=== PATIENT | female | born 1955 | race Two or more races ===

== ENCOUNTER 2024-06-11 15:52 | Inpatient (IN) | payer MEDICARE, MEDICAID ==
[~2024-06-11] VITALS: Ht 170.2 cm; Wt 74.0 kg
[~2024-06-11 15:52] MED LIST: ALEN70TA74 PO; ATEN25TA PO; CELE1CAP27 PO; FLUT1AER17 PO; GABA-1251 PO; HYDR-4072 PO; LIDO1PAD55 TOP; LOSA-534 PO; PANT40T PO
[2024-06-11 17:15] LABS: Hematocrit 44.3 % (36.0-46.0); Hemoglobin 14.4 g/dL (12.2-16.2); Mean Corpuscular Hemoglobin 29.3 pg (28.0-32.0); Mean Corpuscular Hgb Conc. 32.5 g/dL (32.0-36.0); Mean Corpuscular Volume 90.4 fL (80.0-100.0); Platelet Count (auto) 265 10^3/uL (140-450); Red Cell Distribution Width 15.1 % (11.8-14.3)
[2024-06-11 17:23] LABS: White Blood Cell 37.4 10^3/uL (4.4-10.8)
[2024-06-11 17:24] LABS: Band Neutrophils % (manual) 0; Basophils % (manual) 0 (0.0-2.0); Blast Cells 0; Metamyelocytes % 0; Myelocytes % 0; Promyelocytes % 0; Reactive Lymphocytes 0
[2024-06-11 17:28] LABS: Alanine Aminotransferase 13 U/L (7-40); Alkaline Phosphatase 112 U/L (46-116); Anion Gap 10 (5-15); Aspartate Aminotransferase 19 U/L (13-40); BUN/Creatinine Ratio 19.5 (10.0-20.0); Calcium 9.9 mg/dL (8.7-10.4); Carbon Dioxide 23 mmol/L (20-31); Chloride 103 mmol/L (98-107); Lipase 25 U/L (12-53); Potassium 4.6 mmol/L (3.5-5.1); Sodium 136 mmol/L (136-145)
[2024-06-11 17:29] LABS: Albumin 4.3 g/dL (3.2-4.8); Bilirubin, Total 0.7 mg/dL (0.2-1.0); Creatine Kinase IFCC 50 U/L (34-145); Total Protein 6.6 g/dL (5.7-8.2)
[2024-06-11 17:31] LABS: Lactic Acid w/Reflex 2.9 mmol/L (0.4-2.0)
[2024-06-11 17:38] LABS: Blood Urea Nitrogen 24 mg/dL (9-23); Glucose 106 mg/dL (74-106)
[2024-06-11] MEDS: AZITHROMYCIN 500MG/ 250ML 250 ML IV ONE (17:41)
[2024-06-11 17:50] LABS: Eosinophils % (manual) 1 (0-7); Lymphocytes % (manual) 7 (10.0-50.0); Monocytes % (manual) 7 (0-12)
[2024-06-11 17:52] LABS: Platelet Estimate Adequate
--- NOTE | 2024-06-11 19:20 | ED.PDOC ---
History of Present Illness HPI Comments 69y F who presents to the ED for chief complaint of ALOC. Per EMS, pt family found pt on the floor in restroom for unknown time and called EMS. EMS arrived on scene and pt was alert and oriented x 2 but slow slow to answering questions and able to follow simple commands. EMS states pt was tachy in the 130's and started IV fluids and pt also had 02 sat of 92% on room air and pt was placed on 2 L via nc and pt is now 96% on ED arrival. Chief Complaint: ALOC Time Seen by MD: 16:05 Primary Care Provider: UNKNOWN Reviewed Notes: [employer] Notes Allergies: Coded Allergies: NO KNOWN ALLERGIES (Unverified , 06/11/24) Mode of Arrival: EMS Constitutional: reports: malaise, weakness EENTM: denies: blurred vision, double vision, ear bleeding, ear discharge, ear drainage, ear pain, ear ringing, eye pain, eye redness, hearing loss, mouth pain, mouth swelling, nasal discharge, nose bleeding, nose congestion, nose pain, photophobia, tearing, throat pain, throat swelling, voice changes, others Respiratory: denies: cough, hemoptysis, orthopnea, SOB at rest, shortness of breath, SOB with excertion, stridor, wheezing, others Cardiovascular: denies: chest pain, dizzy spells, diaphoresis, Dyspnea on exertion, edema, irregular heart beat, left arm pain, lightheadedness, palpitations, PND, syncope, others Gastrointestinal: denies: abdomen distended, abdominal pain, blood streaked bowels, constipated, diarrhea, dysphagia, difficulty swallowing, hematemesis, melena, nausea, poor appetite, poor fluid intake, rectal bleeding, rectal pain, vomiting, others Genitourinary: denies: abnormal vagina bleeding, burning, dyspareunia, dysuria, flank pain, frequency, hematuria, incontinence, pain, , vagina discharge, urgency, others Neurological: reports: weakness; denies: dizziness, fainting, headache, left sided numbness, left sided weakness, numbness, paresthesia, pre-existing deficit, right sided numbness, right sided weakness, seizure, speech problems, tingling, tremors, others Musculoskeletal: denies: back pain, gout, joint pain, joint swelling, muscle pain, muscle stiffness, neck pain, others Integumetry: denies: bruises, change in color, change in hair/nails, dryness, laceration, lesions, lumps, rash, wounds, others Allergic/Immunocompromised: denies: Difficulty Healing, Frequent Infections, Hives, Itching, others Hematologic/Lymphatic: denies: anemia, blood clots, easy bleeding, easy bruising, swollen glands, others Endocrine: denies: excessive hunger, excessive sweating, excessive thirst, excessive urination, flushing, intolerance to cold, intolerance to heat, unexplained weight gain, unexplained weight loss, others Psychiatric: denies: anxiety, bipolar disorder, depression, hopeless, panic disorder, schizophrenia, sleepless, suicidal, others All Other Systems: Reviewed and Negative Physical Exam General Appearance: Moderate Distress HEENT: PERRL/EOMI Neck: Non-Tender Respiratory: Crackles, Respiratory Distress, Wheezing Cardiovascular: Tachycardia Breast Exam: Normal Gastrointestinal: Tenderness Genitalia: Deferred Pelvic: Deferred Rectal: Deferred Extremities: No calf tenderness, Normal capillary refill, Normal inspection, Normal range of motion, Non-tender, No pedal edema Neurologic: Disoriented Cerebellar Function: NOT DONE Reflexes: NOT DONE Skin: Diaphoresis Lymphatic: No Adenopathy Was a procedure done? Was a procedure done?: No Differential Dx Considerations may include: sepsis, TIA, CVA, alerted mental status, metabolic encephalopathy, CHF, X-Ray, Labs, Meds, VS Vital Signs Date Time Temp Pulse Resp B/P (MAP) Pulse Ox O2 Delivery O2 Flow Rate FiO2 06/11/24 21:40 129/61 06/11/24 21:38 149 16 151/62 (91) 100 75 06/11/24 21:34 129/61 06/11/24 20:00 110 06/11/24 19:55 97.7 110 30 135/92 (106) 96 97.7 06/11/24 19:50 110 30 96 Simple Mask* 6 50 06/11/24 19:32 24 94 Nasal Cannula* 2 28 06/11/24 16:00 99.6 134 28 133/54 (80) 96 Lab Test 06/11/24 22:36 06/11/24 20:30 06/11/24 19:11 06/11/24 17:23 Range/Units Ammonia Pending Urine Color Light-yellow Yellow Urine Clarity Turbid H Clear Urine pH 6.5 5.0-9.0 Urine Specific [place] 1.025 1.001-1.035 Urine Protein Trace H Negative Urine Ketones Negative Negative Urine Blood 1+ H Negative /uL Urine Nitrite Negative Negative Urine Bilirubin Negative Negative Urine Urobilinogen Normal Negative mg/dL Urine Leukocyte Esterase 2+ Negative /uL Urine RBC 7 0 - 4 /hpf Urine WBC 11 0 - 5 /hpf Urine Squamous Epithelial Cells Few <5 /hpf Urine Bacteria Many H None Seen /hpf Urine Glucose Normal Normal mg/dL Urine Opiates Screen Pos NEGATIVE Urine Fentanyl Screen Neg NEGATIVE Urine Barbiturates Screen Neg NEGATIVE Urine Phencyclidine Screen Neg NEGATIVE Urine Amphetamines Screen Neg NEGATIVE Urine Benzodiazepines Screen Neg NEGATIVE Urine Cocaine Screen Neg NEGATIVE Urine Cannabinoids Screen Neg NEGATIVE Lactic Acid Level 2.3 *H 0.4-2.0 mmol/L Troponin I High Sensitivity 42 *H 25 </=34 ng/L Plasma/Serum Blood Alcohol Pending B-Type Natriuretic Peptide 75.18 0-100 pg/mL Test 06/11/24 16:56 06/11/24 16:37 Range/Units Lactic Acid Level 2.9 *H 0.4-2.0 mmol/L White Blood Count 37.4 *H 4.4-10.8 10^3/uL Red Blood Count 4.90 4.0-5.20 10^6/uL Hemoglobin 14.4 12.2-16.2 g/dL Hematocrit 44.3 36.0-46.0 % Mean Corpuscular Volume 90.4 80.0-100.0 fL Mean Corpuscular Hemoglobin 29.3 28.0-32.0 pg Mean Corpuscular Hemoglobin Concent 32.5 32.0-36.0 g/dL Red Cell Distribution Width 15.1 H 11.8-14.3 % Platelet Count 265 140-450 10^3/uL Mean Platelet Volume 8.8 6.9-10.8 fL Neutrophils (%) (Auto) 37.0-80.0 % Lymphocytes (%) (Auto) 10.0-50.0 % Monocytes (%) (Auto) 0.0-12.0 % Basophils (%) (Auto) 0.0-2.0 % Neutrophils # (Auto) 1.6-8.6 10 ^3/uL Lymphocytes # (Auto) 0.4-5.4 10 ^3/uL Monocytes # (Auto) 0-1.3 10 ^3/uL Differential Total Cells Counted 100.0 100 Neutrophils % (Manual) 85 H 37.0-80.0 Band Neutrophils % (Manual) 0 Lymphocytes % (Manual) 7 L 10.0-50.0 Monocytes % (Manual) 7 0-12 Eosinophils % (Manual) 1 0-7 Basophils % (Manual) 0 0.0-2.0 Metamyelocytes % (manual) 0 Myelocytes % (Manual) 0 Promyelocytes % (Manual) 0 Blast Cells % (Manual) 0 Reactive Lymphocytes 0 Platelet Estimate Adequate Sodium Level 136 136-145 mmol/L Potassium Level 4.6 3.5-5.1 mmol/L Chloride Level 103 98-107 mmol/L Carbon Dioxide Level 23 20-31 mmol/L Anion Gap 10 5-15 Blood Urea Nitrogen 24 H 9-23 mg/dL Creatinine 1.23 H 0.550-1.02 mg/dL Glomerular Filtration Rate Calc 48 >90 mL/min BUN/Creatinine Ratio 19.5 10.0-20.0 Serum Glucose 106 74-106 mg/dL Hemoglobin A1c 5.4 <5.7 % A1C Calcium Level 9.9 8.7-10.4 mg/dL Total Bilirubin 0.7 0.2-1.0 mg/dL Aspartate Amino Transferase (AST) 19 13-40 U/L Alanine Aminotransferase (ALT) 13 7-40 U/L Alkaline Phosphatase 112 46-116 U/L Creatine Kinase 50 34-145 U/L Troponin I High Sensitivity 20 </=34 ng/L Total Protein 6.6 5.7-8.2 g/dL Albumin 4.3 3.2-4.8 g/dL Lipase 25 12-53 U/L Current Medications Medications (Trade) Dose Ordered Sig/Ilan Route Start Time Stop Time Status Last Admin Cefepime HCl 50 ml @ 12.5 mls/hr ONCE ONCE IV 06/11/24 17:30 06/11/24 21:29 DC 06/11/24 19:45 Vancomycin HCl 200 ml @ 200 mls/hr ONCE ONCE IV 06/11/24 17:30 06/11/24 18:29 DC 06/11/24 19:45 Azithromycin 250 ml @ 125 mls/hr ONCE ONCE IV 06/11/24 17:30 06/11/24 19:29 DC 06/11/24 17:41 Sodium Chloride 1,850 ml @ 1,850 mls/hr ONCE ONCE IV 06/11/24 17:45 06/11/24 19:01 DC 06/11/24 19:45 Albuterol (Ventolin Medneb) 5 mg ONCE ONCE NEB 06/11/24 19:30 06/11/24 19:31 DC 06/11/24 19:31 Ipratropium Gabbs (Atrovent Medneb) 0.5 mg ONCE ONCE NEB 06/11/24 19:30 06/11/24 19:31 DC 06/11/24 19:31 Etomidate 20 mg ONCE ONCE IV 06/11/24 21:15 06/11/24 21:17 DC 06/11/24 21:34 Rocuronium Gabbs 100 mg ONCE ONCE IV 06/11/24 21:15 06/11/24 21:17 DC 06/11/24 21:34 Propofol 100 ml @ 2.316 mls/ hr Q24H IV 06/11/24 21:15 06/11/24 21:40 Lactated Ringer's 2,000 ml @ 1,000 mls/hr Q2H ONCE IV 06/11/24 21:50 06/11/24 23:49 06/11/24 21:50 [place] [address] Ph: [phone] DIAGNOSTIC IMAGING Diagnostic Imaging Report : [id number] Signed PATIENT: MARILEE RECIO ACCT: [id number] UNIT: [id number] : 1955 LOC: ER ROOM / BED: / AGE / SEX: 69 / F ADM STATUS: REG ER SERVICE 1625 ORDERING PHYSICIAN: REUBEN FERNANDEZ MD PROCEDURE(s): HWOCT - HEAD WITHOUT CONTRAST REASON: [facility] ORDER NUMBER(s): [id number], ACCESSION NUMBER(s): [id number] EXAM: CT HEAD WITHOUT CONTRAST HISTORY: [facility] COMPARISON: None TECHNIQUE: Axial images were obtained and reformatted in coronal and sagittal planes. All CT scans at this medical facility are performed using dose modulation techniques as appropriate to a performed exam including the following: Automated exposure control was utilized; adjustment of the MA and/or KV according to patient size; and use of iterative reconstruction technique. CT Dose: CTDI volume is 53.06 mGy. Dose-length product is 939.56 mGy*cm FINDINGS: Supratentorial Region: No evidence for large acute territorial ischemia. No intracranial hemorrhage is noted. Confluent white matter hypoattenuating foci are noted bilaterally, which typically reflect chronic microvascular ischemic changes. Posterior Fossa: No acute abnormality. Brainstem: Unremarkable. Sellar/Suprasellar Region: Unremarkable. Ventricles, Cisterns, Sulci: Age-appropriate. Orbits: Unremarkable. Paranasal Sinuses: Mild ethmoid sinus mucosal thickening noted. Air-fluid level is seen in the sphenoid sinus. Mastoid Air Cells: Unremarkable. Vasculature: Unremarkable. Bones/Soft Tissues: No acute abnormality. Other: None. IMPRESSION: 1. No acute intracranial process. 2. Acute sinusitis moderate amount of free fluid in the right sphenoid sinus. ATED BY: SHIRIN MALDONADO MD DICTATED DATE/TIME: 06/11/241956 SIGNED BY: SHIRIN MALDONADO MD SIGNED DATE/TIME: 06/11/241956 CC: [place] [address] Ph: [phone] DIAGNOSTIC IMAGING Diagnostic Imaging Report : [id number] Signed PATIENT: MARILEE RECIO ACCT: [id number] UNIT: [id number] : 1955 LOC: ER ROOM / BED: / AGE / SEX: 69 / F ADM STATUS: REG ER SERVICE 24 ORDERING PHYSICIAN: REUBEN FERNANDEZ MD PROCEDURE(s): CXRP - CHEST PORTABLE REASON: ams ORDER NUMBER(s): [id number], ACCESSION NUMBER(s): [id number] CHEST RADIOGRAPH Indication: ams Technique: Single frontal view of the chest was obtained COMPARISON: None FINDINGS: Lines and Tubes: None Lungs: Moderate interstitial pulmonary edema. Superimposed pneumonia is difficult to exclude Pleura: No effusion. No pneumothorax. Cardiomediastinal contours: Mild cardiomegaly Bones: Unremarkable IMPRESSION: 1. Moderate interstitial pulmonary edema. Superimposed pneumonia is difficult to exclude ATED BY: MARCELLO BOWER MD DICTATED DATE/TIME: 06/11/242000 SIGNED BY: MARCELLO BOWER MD SIGNED DATE/TIME: 06/11/242000 CC: [address] [address] Ph: [phone] DIAGNOSTIC IMAGING Diagnostic Imaging Report : [id number] Signed PATIENT: MARILEE RECIO ACCT: [id number] UNIT: [id number] : 1955 LOC: ER ROOM / BED: / AGE / SEX: 69 / F ADM STATUS: REG ER SERVICE 24 ORDERING PHYSICIAN: REUBEN FERNANDEZ MD PROCEDURE(s): CS2 - CERVICAL WITHOUT CONTRAST REASON: found down ORDER NUMBER(s): [id number], ACCESSION NUMBER(s): [id number] EXAM: CT CERVICAL WITHOUT CONTRAST INDICATION: found down EXAM DATE: 06/11/2024 07:38 PM COMPARISON: None TECHNIQUE: Multiple axial CT images of the cervical spine were obtained using bone algorithm. Axial and coronal reformatting was done. Bone and soft tissue windows were reviewed. Radiation Dose Information: CT Dose: CTDI volume is 24 mGy. Dose-length product is 587 mGy*cm FINDINGS: The cervical alignment is intact. No acute cervical spine fracture is identified. The vertebral body heights are intact. No suspicious osseous lesions are identified. No significant degenerative changes are identified. There is no prevertebral soft tissue swelling. Partially visualized right lung consolidation IMPRESSION: 1. No evidence of acute cervical spine fracture or traumatic malalignment. 2. Partially visualized right lung consolidation. Recommend noncontrast chest CT for further evaluation 3. All CT scans at this medical facility are performed using dose modulation techniques as appropriate to a performed exam including the following: Automated exposure control was utilized; adjustment of the MA and/or KV according to patient size; and use of iterative reconstruction technique. ATED BY: MARCELLO BOWER MD DICTATED DATE/TIME: 06/11/241951 SIGNED BY: MARCELLO BOWER MD SIGNED DATE/TIME: 06/11/241951 CC: [address], [place] - [address] Ph: [phone] DIAGNOSTIC IMAGING Diagnostic Imaging Report : [id number] Signed PATIENT: MARILEE RECIO ACCT: [id number] UNIT: [id number] : 1955 LOC: ER ROOM / BED: / AGE / SEX: 69 / F ADM STATUS: REG ER SERVICE 0739 ORDERING PHYSICIAN: REUBEN FERNANDEZ MD PROCEDURE(s): CAPIV - CT CHEST/AB/PL W CON- IV ONLY REASON: ams, found down ORDER NUMBER(s): [id number], ACCESSION NUMBER(s): [id number] Exam: CT CT CHEST/AB/PL W CON- IV ONLY History: ams, found down Comparison Study: None available at time of dictation. Technique: Multidetector spiral CT of the chest, abdomen and pelvis was performed from lower neck to pubic symphysis. Intravenous contrast was ad ministered during this examination. Portal venous imaging was obtained. Axial, coronal and sagittal multiplanar reformats were performed by the technologist on a separate workstation. Radiation Dose : 1. Chest/Abdomen/Pelvis: CTDIvol 16 mGy, DLP 1028 mGy*cm. Findings: Lower neck: Within normal limits. Lungs: Patchy consolidations in the posterior right upper and lower lobes. Heart/Vascular Structures: Mild calcification of the coronary vessels. Lymph Nodes: No adenopathy Pleura: Within normal limits. Liver: The liver is normal in size. No focal lesions. Normal hepatic vascular enhancement. Gallbladder and Biliary Tree: Unremarkable Spleen: Unremarkable Pancreas: The pancreas is normal in appearance without focal lesions or abnormal enhancement. Adrenal Glands: Unremarkable Kidneys: Mild right-sided hydronephrosis without evidence of ureteral stones. Bladder: Unremarkable Bowel: The stomach is grossly normal in appearance. Small bowel and colon are normal in caliber and distribution. Normal appendix is visualized in the right lower quadrant without findings of appendicitis. Ascites: Absent Lymphadenopathy: No mesenteric, retroperitoneal or periportal lymphadenopathy. Abdominal Wall and Mesentery: Unremarkable. Vasculature: Cystic lesion with peripheral calcification adjacent to the abdominal aorta (left side ) at the level of the left kidney which most likely represents lymphocele or lymphangioma. Pelvic Organs: Unremarkable Musculoskeletal: No aggressive focal bony lesions, acute fractures or dislocation. IMPRESSION: Right posterior upper and lower lobe consolidations concerning for multifocal pneumonia versus aspiration. 2 cm cystic lesion with peripheral calcification adjacent to the abdominal aorta at the level of the left kidney which most likely represents a lymphocele or lymphangioma. Mild left-sided hydronephrosis without evidence of ureteral stone. Sigmoid colon diverticulosis associated intraluminal narrowing at the distal sigmoid colon and no significant adjacent inflammatory changes. This is most likely due to underdistention and less likely due to early diverticulitis. ATED BY: MARLEY PINEDO DO DICTATED DATE/TIME: 06/11/242031 SIGNED BY: MARLEY PINEDO DO SIGNED DATE/TIME: 06/11/242031 CC: Time of 1ST Reevaluation: 16:35 Reevaluation 1ST: Unchanged Patient Education/Counseling: Other (pt is axox2) Family Education/Counseling: No Family Present Additional Information - I reviewed the following notes from patient's past medical encounters: - The following tests were ordered, and results were reviewed by me: (Labs, X- Ray, EKG): BNP, CBC, CMP, Lactic acid, lipase, troponin x3, CT head without contrast, CT chest, EKG x3, CK, CT cervical w/o contrast - Additional information was gathered from interviewing the following independent Historian: (Family, Other Providers, EMT): EMS - I reviewed and agreed with the following test results read by other provider: (X-ray, CT, US): radiologist - I discussed treatments and results with medical personnel and: (consultants, family): none Departure 1 Departure Time of Disposition: 22:49 (Was intubated central line placed. Patient is acutely septic. Patient was also found down on the ground for several days so we will evaluate patient for trauma.) Impression: Primary Impression: Right lower lobe consolidation Additional Impressions: Right middle lobe pneumonia Qualified Codes: J18.9 - Pneumonia, unspecified organism Sepsis Qualified Codes: A41.9 - Sepsis, unspecified organism; R65.21 - Severe sepsis with septic shock; J96.01 - Acute respiratory failure with hypoxia Metabolic encephalopathy Acute hypoxic respiratory failure Disposition: ADMITTED INPATIENT Admit to: ICU Condition: Critical Critical Care Note Critical Care Time?: Yes Critical care comment: Acute hypoxic respiratory failure Authorized and Performed by: Reuben Fernandez MD Total critical care time: Approximately 98 minutes Due to a high probability of clinically significant, life threatening deterioration, the patient required my highest level of preparedness to intervene emergently and I personally spent this critical care time directly and personally managing the patient. This critical care time included obtaining a history; examining the patient; pulse oximetry; ordering and review of studies; arranging urgent treatment with development of a management plan; evaluation of patient's response to treatment; frequent reassessment; and, discussions with other providers. This critical care time was performed to assess and manage the high probability of imminent, life-threatening deterioration that could result in multi-organ failure. It was exclusive of separately billable procedures and treating other patients and teaching time. Please see my other sections and the rest of the note for further information on patient assessment and treatment. Stability Stability form required: No Heart Score Heart Score: Heart Score Response (Comments) Value History N/A 0 EKG N/A 0 Age N/A 0 Risk Factors N/A 0 Troponin N/A 0 Total 0 I personally scribed for REUBEN FERNANDEZ MD ([email or web address]) on 06/11/24 at 21:42. Electronically submitted by Jonelle Parish ([email or web address]). REUBEN FERNANDEZ MD Jun 11, 2024 19:20
[2024-06-11] MEDS: AZITHROMYCIN 250 MG TAB PO ONE (19:30)
[2024-06-11] MEDS: ALBUTEROL SULF 2.5 MG/0.5ML(0.5%) NEB SOLN NEB ONE (19:31)
[2024-06-11] MEDS: IPRATROPIUM BROM 0.5 MG/2.5ML INH SOL NEB ONE (19:31)
[2024-06-11] MEDS: IOHEXOL 300 MG/ML 100ML BOTTLE IJ ONE (19:37)
[2024-06-11] MEDS: SODIUM CHLORIDE 0.9% 1,850 ML IV ONE (19:45)
[2024-06-11] MEDS: VANCOMYCIN 1GM/250ML KIT 200 ML IV ONE (19:45)
[2024-06-11] MEDS: CEFEPIME 2GM/50ML NS 50 ML IV ONE (19:45)
[2024-06-11 19:50] VITALS: PULSE 110; RESP 30; O2SAT 96
--- NOTE | 2024-06-11 19:54 | DVH ---
EXAM: CT CERVICAL WITHOUT CONTRAST INDICATION: found down EXAM DATE: 06/11/2024 07:38 PM COMPARISON: None TECHNIQUE: Multiple axial CT images of the cervical spine were obtained using bone algorithm. Axial a nd coronal reformatting was done. Bone and soft tissue windows were reviewed. Radiation Dose Information: CT Dose: CTDI volume is 24 mGy. Dose-length product is 587 mGy*cm FINDINGS: The cervical alignment is intact. No acute cervical spine fracture is identified. The vertebral body heights are intact. No suspicious osseous lesions are identified. No significant degenerative changes are identified. There is no prevertebral soft tissue swelling. Partially visualized right lung consolidation IMPRESSION: 1. No evidence of acute cervical spine fracture or traumatic malalignment. 2. Partially visualized right lung consolidation. Recommend noncontrast chest CT for further evaluat ion 3. All CT scans at this medical facility are performed using dose modulation techniques as appropriat e to a performed exam including the following: Automated exposure control was utilized; adjustment of the MA and/or KV according to patient size; and use of iterative reconstruction technique.
--- NOTE | 2024-06-11 19:59 | DVH ---
EXAM: CT HEAD WITHOUT CONTRAST HISTORY: ams COMPARISON: None TECHNIQUE: Axial images were obtained and reformatted in coronal and sagittal planes. All CT scans at this medical facility are performed using dose modulation techniques as appropriate t o a performed exam including the following: Automated exposure control was utilized; adjustment of th e MA and/or KV according to patient size; and use of iterative reconstruction technique. CT Dose: CTDI volume is 53.06 mGy. Dose-length product is 939.56 mGy*cm FINDINGS: Supratentorial Region: No evidence for large acute territorial ischemia. No intracranial hemorrhage is noted. Confluent white matter hypoattenuating foci are noted bilaterally, which typically reflect chronic microvascular ischemic changes. Posterior Fossa: No acute abnormality. Brainstem: Unremarkable. Sellar/Suprasellar Region: Unremarkable. Ventricles, Cisterns, Sulci: Age-appropriate. Orbits: Unremarkable. Paranasal Sinuses: Mild ethmoid sinus mucosal thickening noted. Air-fluid level is seen in the sphe noid sinus. Mastoid Air Cells: Unremarkable. Vasculature: Unremarkable. Bones/Soft Tissues: No acute abnormality. Other: None. IMPRESSION: 1. No acute intracranial process. 2. Acute sinusitis moderate amount of free fluid in the right sphenoid sinus.
--- NOTE | 2024-06-11 20:03 | DVH ---
CHEST RADIOGRAPH Indication: ams Technique: Single frontal view of the chest was obtained COMPARISON: None FINDINGS: Lines and Tubes: None Lungs: Moderate interstitial pulmonary edema. Superimposed pneumonia is difficult to exclude Pleura: No effusion. No pneumothorax. Cardiomediastinal contours: Mild cardiomegaly Bones: Unremarkable IMPRESSION: 1. Moderate interstitial pulmonary edema. Superimposed pneumonia is difficult to exclude
--- NOTE | 2024-06-11 20:34 | DVH ---
Exam: CT CT CHEST/AB/PL W CON- IV ONLY History: ams, found down Comparison Study: None available at time of dictation. Technique: Multidetector spiral CT of the chest, abdomen and pelvis was performed from lower neck to pubic symphysis. Intravenous contrast was administered during this examination. Portal venous imagi ng was obtained. Axial, coronal and sagittal multiplanar reformats were performed by the technologist on a separate workstation. Radiation Dose : 1. Chest/Abdomen/Pelvis: CTDIvol 16 mGy, DLP 1028 mGy*cm. Findings: Lower neck: Within normal limits. Lungs: Patchy consolidations in the posterior right upper and lower lobes. Heart/Vascular Structures: Mild calcification of the coronary vessels. Lymph Nodes: No adenopathy Pleura: Within normal limits. Liver: The liver is normal in size. No focal lesions. Normal hepatic vascular enhancement. Gallbladder and Biliary Tree: Unremarkable Spleen: Unremarkable Pancreas: The pancreas is normal in appearance without focal lesions or abnormal enhancement. Adrenal Glands: Unremarkable Kidneys: Mild right-sided hydronephrosis without evidence of ureteral stones. Bladder: Unremarkable Bowel: The stomach is grossly normal in appearance. Small bowel and colon are normal in caliber and d istribution. Normal appendix is visualized in the right lower quadrant without findings of appendici tis. Ascites: Absent Lymphadenopathy: No mesenteric, retroperitoneal or periportal lymphadenopathy. Abdominal Wall and Mesentery: Unremarkable. Vasculature: Cystic lesion with peripheral calcification adjacent to the abdominal aorta (left side ) at the level of the left kidney which most likely represents lymphocele or lymphangioma. Pelvic Organs: Unremarkable Musculoskeletal: No aggressive focal bony lesions, acute fractures or dislocation. IMPRESSION: Right posterior upper and lower lobe consolidations concerning for multifocal pneumonia versus aspira tion. 2 cm cystic lesion with peripheral calcification adjacent to the abdominal aorta at the level of the left kidney which most likely represents a lymphocele or lymphangioma. Mild left-sided hydronephrosis without evidence of ureteral stone. Sigmoid colon diverticulosis associated intraluminal narrowing at the distal sigmoid colon and no sig nificant adjacent inflammatory changes. This is most likely due to underdistention and less likely du e to early diverticulitis.
[2024-06-11 20:50] LABS: Urine Bacteria MANY /hpf (None Seen); Urine Blood 1+ /uL (Negative); Urine Clarity Turbid (Clear); Urine Color Light-Yellow (Yellow); Urine Protein, UAD TRACE (Negative); Urine Specific Gravity 1.025 (1.001-1.035); Urine Squamous Epithelial Cell FEW /hpf (<5); Urine Urobilinogen Normal (Negative); Urine WBC 11 /hpf (0 - 5); Urine pH 6.5 (5.0-9.0)
[2024-06-11] MEDS: PROPOFOL 100 ML IV ONE (21:19)
[2024-06-11] MEDS: ETOMIDATE (2MG/ML) 20ML VIAL IV ONE ×2 (21:19→21:34)
[2024-06-11] MEDS: ROCURONIUM 10MG/ML 10ML VIAL IV ONE ×2 (21:20→21:34)
[2024-06-11 21:30] VITALS: PULSE 133; RESP 34; O2SAT 96
[2024-06-11] MEDS: PROPOFOL 100 ML IV SCH (21:40)
--- NOTE | 2024-06-11 21:48 | DVHHPRES ---
History of Present Illness Resident Creating Document: MIHAELA CULLEN RESIDENT History of Present Illness This is a 69-year-old female brought in ED via EMS for altered level of consciousness. Per EMS, pt family found pt on the floor in restroom for unknown time and called EMS. EMS arrived on scene and pt was alert and oriented x 2 but slow to answering questions and able to follow simple commands. According to the daughter she was out of home for 2 days and the patient was alone in the home and when she gets back from work today she saw her mother felt on the floor, very weak and not able to stand up and they called the EMS. In the ED the patient was tachycardic, tachypneic desaturating on 6 L of oxygen. The patient was then intubated and admitted in the ICU status. Past Medical History Hypertension, osteoporosis Past Surgical History None Family History None Smoke: No ALCOHOL: none Drugs: None Lives: with Family Review of Systems Review of Systems Review of system could not be obtained as patient is intubated Allergies: Coded Allergies: NO KNOWN ALLERGIES (Unverified , 06/11/24) Medications Current Medications Medications Dose Ordered Sig/Ilan Route Start Time Stop Time Status Last Admin Dose Admin Propofol 100 ml @ 2.316 mls/ hr Q24H IV 06/11/24 21:15 Fentanyl Citrate 250 ml @ 2.5 mls/hr Q24H IV 06/11/24 21:15 Exam Vital Signs Vital Signs Date Time Temp Pulse Resp B/P (MAP) Pulse Ox O2 Delivery O2 Flow Rate FiO2 06/11/24 19:32 24 94 Nasal Cannula* 2 28 06/11/24 16:00 99.6 134 133/54 (80) Exam Physical examination: General Appearance: Intubated. HEENT: Atraumatic, PERRLA, EOMI, Mucous membrane moist/pink Respiratory: Rt sided basal crackles, decreased breath sound on the Lt side. Cardiovascular: Regular rate, Normal S1, Normal S2, No murmurs, no chest wall tenderness Abdominal: Normal bowel sounds, Soft, No tenderness, No hepatospenomegaly, No masses Extremities: No clubbing, No cyanosis, No edema, Normal pulses, No tenderness/swelling Skin: No rashes, No breakdown, No significant lesion Neuro: Strength at 5/5 X4 ext, Normal tone, grossly intact cranial nerves. Psych/Mental Status: Labs/Xrays Labs Test 06/11/24 20:30 06/11/24 19:11 06/11/24 17:23 06/11/24 16:37 Range/Units Urine Color Light-yellow Yellow Urine Clarity Turbid H Clear Urine pH 6.5 5.0-9.0 Urine Specific [place] 1.025 1.001-1.035 Urine Protein Trace H Negative Urine Ketones Negative Negative Urine Blood 1+ H Negative /uL Urine Nitrite Negative Negative Urine Bilirubin Negative Negative Urine Urobilinogen Normal Negative mg/dL Urine Leukocyte Esterase 2+ Negative /uL Urine RBC 7 0 - 4 /hpf Urine WBC 11 0 - 5 /hpf Urine Squamous Epithelial Cells Few <5 /hpf Urine Bacteria Many H None Seen /hpf Urine Glucose Normal Normal mg/dL Lactic Acid Level 2.3 *H 0.4-2.0 mmol/L Troponin I High Sensitivity 42 *H </=34 ng/L B-Type Natriuretic Peptide 75.18 0-100 pg/mL White Blood Count 37.4 *H 4.4-10.8 10^3/uL Red Blood Count 4.90 4.0-5.20 10^6/uL Hemoglobin 14.4 12.2-16.2 g/dL Hematocrit 44.3 36.0-46.0 % Mean Corpuscular Volume 90.4 80.0-100.0 fL Mean Corpuscular Hemoglobin 29.3 28.0-32.0 pg Mean Corpuscular Hemoglobin Concent 32.5 32.0-36.0 g/dL Red Cell Distribution Width 15.1 H 11.8-14.3 % Platelet Count 265 140-450 10^3/uL Mean Platelet Volume 8.8 6.9-10.8 fL Neutrophils (%) (Auto) 37.0-80.0 % Lymphocytes (%) (Auto) 10.0-50.0 % Monocytes (%) (Auto) 0.0-12.0 % Basophils (%) (Auto) 0.0-2.0 % Neutrophils # (Auto) 1.6-8.6 10 ^3/uL Lymphocytes # (Auto) 0.4-5.4 10 ^3/uL Monocytes # (Auto) 0-1.3 10 ^3/uL Differential Total Cells Counted 100.0 100 Neutrophils % (Manual) 85 H 37.0-80.0 Band Neutrophils % (Manual) 0 Lymphocytes % (Manual) 7 L 10.0-50.0 Monocytes % (Manual) 7 0-12 Eosinophils % (Manual) 1 0-7 Basophils % (Manual) 0 0.0-2.0 Metamyelocytes % (manual) 0 Myelocytes % (Manual) 0 Promyelocytes % (Manual) 0 Blast Cells % (Manual) 0 Reactive Lymphocytes 0 Platelet Estimate Adequate Sodium Level 136 136-145 mmol/L Potassium Level 4.6 3.5-5.1 mmol/L Chloride Level 103 98-107 mmol/L Carbon Dioxide Level 23 20-31 mmol/L Anion Gap 10 5-15 Blood Urea Nitrogen 24 H 9-23 mg/dL Creatinine 1.23 H 0.550-1.02 mg/dL Glomerular Filtration Rate Calc 48 >90 mL/min BUN/Creatinine Ratio 19.5 10.0-20.0 Serum Glucose 106 74-106 mg/dL Calcium Level 9.9 8.7-10.4 mg/dL Total Bilirubin 0.7 0.2-1.0 mg/dL Aspartate Amino Transferase (AST) 19 13-40 U/L Alanine Aminotransferase (ALT) 13 7-40 U/L Alkaline Phosphatase 112 46-116 U/L Creatine Kinase 50 34-145 U/L Total Protein 6.6 5.7-8.2 g/dL Albumin 4.3 3.2-4.8 g/dL Lipase 25 12-53 U/L Assessment/Plan Assessment/Plan Assessment and Plan: # Acute hypoxic respiratory failure secondary to possible aspiration pneumonia # Septic shock - Chest xray revealed Rt middle and lower lobe opacity, possible aspiration pn eumonia - CT chest revealed possible aspiration versus multifocal pneumonia - Patient is on IV Levophed as per protocol - Patient was given 2 L IV bolus lactated Ringer's - IV normal saline at 75 mL/hour - IV vancomycin as per pharmacy and IV meropenem1 g 12 hourly - Duoneb with ipratropium and albuterol q.6 hours p.r.n. - Ordered blood culture, urine bacterial culture and sputum culture # NSTEMI type 2 secondary to above - Troponin trends are 20>25>42 - Ordered echo. # Acute cystitis - U/A is consistent with UTI - Patient is on IV meropenem. # prophylaxis - Protonix IV 40 mg daily # DVT prophylaxis - Lovenox 40 mg SC daily. Goal of care discussed with the family full code Plan discussed with Dr. Marie Plan discussed with: Patient, Other My Orders Orders - MIHAELA CULLEN Procedure Category Date Status Time Admit ADMIT 06/11/24 Verified 21:46 Morphine Sulfate PHA 06/11/24 Verified Injection 22:00 Oxygen By Nasal RT 06/11/24 Verified Cannula 21:46 Stat Ekg For Chest [facility] 06/11/24 Verified Pain 21:46 Notify Md Of Changes [facility] 06/11/24 Verified From Base 21:46 Senior Reliability Engineer For [facility] 06/11/24 Verified 24 Hours 21:46 Emergency Dysrhythmia [facility] 06/11/24 Verified Protocol 21:46 Rhythm Strips Once [facility] 06/11/24 Verified Every Shift 21:46 Nitroglycerin [facility] 06/11/24 Verified Sublingual (Ntrostat 22:00 Date of Service: Jun 11, 2024 Billing Provider: PATT MARIE MD Common Visit Codes: [id number] INP/OBS CARE (HIGH) Secondary Visit Codes: [id number] CARE PLAN 30 MINUTES MIHAELA CULLEN Jun 11, 2024 21:48 PATT MARIE MD Jun 12, 2024 08:38
[2024-06-11] MEDS: LACTATED RINGER'S 2,000 ML IV ONE (21:50)
--- NOTE | 2024-06-11 21:59 | DVH ---
CHEST RADIOGRAPH Indication: Post intubation ETT/OG placement Technique: Single frontal view of the chest was obtained COMPARISON: XY CHEST PORTABLE on DOS: 06/11/24 FINDINGS: Lines and Tubes: Endotracheal tube terminates 4.1 cm above the alisha. Enteric tube courses below the diaphragm with tip in the region of the stomach Lungs: Patchy right lung opacities may reflect multifocal pneumonia Pleura: No effusion. No pneumothorax. Cardiomediastinal contours: Unremarkable Bones: Unremarkable IMPRESSION: 1. Patchy right lung opacities may reflect multifocal pneumonia
[2024-06-11] MEDS ORDERED: IPRATROPIUM BROM 0.5 MG/2.5ML INH SOL NEB SCH (22:00)
[2024-06-11] MEDS ORDERED: VANCOMYCIN PER PHARMACY 0 MG IV SCH (22:00)
[2024-06-11] MEDS: PIPERACILLIN-TAZOB 3.375GM 100 ML IV SCH (22:00)
[2024-06-11] MEDS: SODIUM CHLORIDE 0.9% 1,000 ML IV SCH (22:00)
[2024-06-11] MEDS ORDERED: MORPHINE SULFATE INJ 2 MG/ml SYRG IV PRN (22:00)
[2024-06-11] MEDS ORDERED: NITROGLYCERIN 0.4 MG SL TAB SL PRN (22:00)
[2024-06-11] MEDS ORDERED: ALBUTEROL SULF 2.5 MG/0.5ML(0.5%) NEB SOLN NEB SCH (22:00)
[2024-06-11 22:28] LABS: Opiate Scree,Urine Pos (NEGATIVE)
[2024-06-11 22:29] LABS: Amphetamine Screen, Urine Neg (NEGATIVE); Barbiturate Scree,Urine Neg (NEGATIVE); Benzodiazephine Screen, Urine Neg (NEGATIVE); Cannabinoid Screen, Urine Neg (NEGATIVE); Cocaine Screen, Urine Neg (NEGATIVE); Phencyclidine Screen, Urine Neg (NEGATIVE)
[2024-06-11] MEDS: ACETAMINOPHEN IV 1000 MG/100ML (10MG/ML) IV STA (22:53)
--- NOTE | 2024-06-11 22:53 | DVH ---
CHEST RADIOGRAPH Indication: Central Line to right subclavian placement Technique: Single frontal view of the chest was obtained Comparison: XY CHEST XRAY 1 VIEW on DOS: 06/11/24, XY CHEST PORTABLE on DOS: 06/11/24, XY CHEST XRAY 1 VIEW on DOS: 06/11/24 FINDINGS: Lines and Tubes: Endotracheal tube terminates 4.1 cm above the alisha. Enteric tube courses below the diaphragm with tip in the region of the stomach. Right CVC tip in right atrium. Lungs: Patchy right lung opacities may reflect multifocal pneumonia Pleura: No effusion. No pneumothorax. Cardiomediastinal contours: Unremarkable Bones: Unremarkable IMPRESSION: 1. Right CVC tip in right atrium. Retract 5cm
[2024-06-11] MEDS: MEROPENEM 1GM IVPB 50 ML IV ONE (23:30)
[2024-06-11 23:51] LABS: Base Excess -10.6 mmol/L (-2.0-3.0)
[2024-06-12] VITALS (31 sets, daily range): BP systolic 113–166; BP diastolic 35–59; PULSE 70–149; RESP 18–23; TEMP 99–100.4; O2SAT 95–100
[2024-06-12] MEDS: fentaNYL Drip 2500mCg/250mlNS 250 ML IV SCH (00:30)
[2024-06-12] MEDS: IPRATROPIUM BROM 0.5 MG/2.5ML INH SOL NEB SCH (00:57)
[2024-06-12] MEDS: ALBUTEROL SULF 2.5 MG/0.5ML(0.5%) NEB SOLN NEB SCH (00:58)
[2024-06-12] MEDS: MIDAZOLAM DRIP 50 mg/50mL 50 ML IV ONE (01:17)
[2024-06-12] MEDS: NOREPINEPHRINE 8 MG/250ML KIT 250 ML IV ONE (01:18)
[2024-06-12] MEDS: MIDAZOLAM DRIP 50 mg/50mL 50 ML IV SCH (01:21)
[2024-06-12] MEDS: NOREPINEPHRINE 8 MG/250ML KIT 250 ML IV SCH (01:21)
[2024-06-12 01:33] LABS: Base Excess -7.7 mmol/L (-2.0-3.0)
[2024-06-12] MEDS: VASOPRESSIN 20 UNITS in SODIUM CHL 0.9% 99 ML IV SCH (04:00)
[2024-06-12] MEDS: VASOPRESSIN 20 UNIT/ML ONE ×2 (04:00→15:07)
[2024-06-12] MEDS: SODIUM CHLORIDE 0.9% 1,000 ML IV SCH (04:13)
[2024-06-12 05:00] LABS: Hematocrit 39.1 % (36.0-46.0); Hemoglobin 12.5 g/dL (12.2-16.2); Mean Corpuscular Hemoglobin 28.8 pg (28.0-32.0); Mean Corpuscular Hgb Conc. 31.9 g/dL (32.0-36.0); Mean Corpuscular Volume 90.2 fL (80.0-100.0); Platelet Count (auto) 290 10^3/uL (140-450); Red Blood Cells 4.34 10^6/uL (4.0-5.20); Red Cell Distribution Width 15.5 % (11.8-14.3)
[2024-06-12 05:04] LABS: Potassium 3.9 mmol/L (3.5-5.1); Sodium 140 mmol/L (136-145); White Blood Cell 61.9 10^3/uL (4.4-10.8)
[2024-06-12 05:05] LABS: Anion Gap 9 (5-15); Basophils % (manual) 0 (0.0-2.0); Blast Cells 0; Eosinophils % (manual) 0 (0-7); Metamyelocytes % 0; Myelocytes % 0; Promyelocytes % 0
[2024-06-12 05:10] LABS: BUN/Creatinine Ratio 14.7 (10.0-20.0); Blood Urea Nitrogen 16 mg/dL (9-23)
[2024-06-12 05:22] LABS: Calcium 7.7 mg/dL (8.7-10.4); Carbon Dioxide 18 mmol/L (20-31); Chloride 113 mmol/L (98-107); Glucose 124 mg/dL (74-106)
--- NOTE | 2024-06-12 05:28 | DVH ---
CHEST RADIOGRAPH Indication: Resident retracted central line, placement verification Technique: Single frontal view of the chest was obtained Comparison: XY CHEST XRAY 1 VIEW on DOS: 06/11/24, XY CHEST XRAY 1 VIEW on DOS: 06/11/24, XY CHEST PO RTABLE on DOS: 06/11/24 IMPRESSION: Cardiomediastinal silhouette appears stable. Support lines and tubes appear stable and satisfactory position. Interstitial airspace opacities appear similar with moderate pulmonary vascular congestion. Probable small left pleural effusion. No pneumothorax. No significant interval change.
[2024-06-12 06:31] LABS: Base Excess -10.8 mmol/L (-2.0-3.0)
[2024-06-12] MEDS: SODIUM BICARB 50mEq/50ml Vial 50 ML in SOD CHL 0.45% 1,000 ML IV SCH (08:15)
[2024-06-12] MEDS: SODIUM BICARB 8.4% 50Meq/50ml SYR Vial IV ONE ×3 (08:15→14:59)
[2024-06-12] MEDS ORDERED: VANCOMYCIN PER PHARMACY 0 MG IV SCH (08:15)
[2024-06-12 08:20] LABS: Band Neutrophils % (manual) 20; Lymphocytes % (manual) 3 (10.0-50.0); Monocytes % (manual) 6 (0-12); Reactive Lymphocytes 1
[2024-06-12 08:21] LABS: Platelet Estimate Adequate
--- NOTE | 2024-06-12 08:26 | DVH ---
CHEST RADIOGRAPH Indication: Right central line positioning Technique: Single frontal view of the chest was obtained Comparison: XY CHEST XRAY 1 VIEW on DOS: 06/11/24, XY CHEST XRAY 1 VIEW on DOS: 06/11/24, XY CHEST XR AY 1 VIEW on DOS: 06/11/24, XY CHEST PORTABLE on DOS: 06/11/24, XY CHEST XRAY 1 VIEW on DOS: 06/11/24 FINDINGS: Cardiomediastinal silhouette appears stable. Support lines and tubes appear stable and satisfactory position. Interstitial airspace opacities appear similar with moderate pulmonary vascular congestion. Probable small left pleural effusion. No pneumothorax. No significant interval change. IMPRESSION: No interval change.
--- NOTE | 2024-06-12 08:33 | DVHPN2 ---
Subjective Patient intubated and sedated Reviewed: Care Plan, H&P, Labs, Medications Changes from previous H/P or p: No Changes General: Per HPI Objective Vitals Vital Signs Date Time Temp Pulse Resp B/P (MAP) Pulse Ox O2 Delivery O2 Flow Rate FiO2 06/12/24 07:00 112/43 06/12/24 06:45 99.3 92 20 100 99.3 06/12/24 06:34 55 06/11/24 21:30 Simple Mask* 6 Intake/Output Intake and Output 06/12/24 07:00 Intake Total 3100 ml Output Total 1100 ml Balance 2000 ml Intake IV Total 3100 ml Output Urine Total 1100 ml General Appearance: moderate distress, Other (Chemically sedated) HEENT: Atraumatic, PERRLA Lungs: Other (Course rhonchi to right upper and lower lobe. Mechanical ventilation) Cardiovascular: Normal S1 Abdomen: Other (Hypoactive bowel sounds) Genitourinary: No Apparent Abnormalities (White catheter) Extremities: No clubbing, No cyanosis, No edema, No tenderness/swelling Neuro: Other (Unable to assess) Psych/Mental Status: Other (Unable to assess) Medications Current Medications Medications Dose Ordered Sig/Ilan Route Start Time Stop Time Status Last Admin Dose Admin Propofol 100 ml @ 2.316 mls/ hr Q24H IV 06/11/24 21:15 06/11/24 21:40 2.316 MLS/HR Fentanyl Citrate 250 ml @ 2.5 mls/hr Q24H IV 06/11/24 21:15 06/12/24 00:30 2.5 MLS/HR Morphine Sulfate 2 mg Q30M PRN IV 06/11/24 22:00 Nitroglycerin 0.4 mg Q5MINP PRN SL 06/11/24 22:00 Vancomycin HCl 0 ml @ 0 mls/hr UD IV 06/11/24 22:00 UNV Albuterol 2.5 mg Q6HR NEB 06/12/24 00:00 06/12/24 06:33 2.5 MG Ipratropium [place] 0.5 mg Q6HR NEB 06/12/24 00:00 06/12/24 06:34 0.5 MG Meropenem 50 ml @ 17 mls/hr Q12H IV 06/12/24 12:00 Midazolam HCl 50 ml @ 1 mls/hr Q24H IV 06/12/24 01:15 06/12/24 06:48 8 MLS/HR Norepinephrine Bitartrate 250 ml @ 3.75 mls/hr Q24H IV 06/12/24 01:15 06/12/24 06:09 56.25 MLS/HR Vasopressin 20 units/Sodium Chloride 100 ml @ 9 mls/hr Q11H7M IV 06/12/24 01:45 06/12/24 04:00 9 MLS/HR Pantoprazole Sodium 40 mg DAILY IV 06/12/24 10:00 Enoxaparin Sodium 40 mg DAILY SC 06/12/24 10:00 Vancomycin HCl 0 ml @ 0 mls/hr UD IV 06/12/24 08:15 UNV Sodium Bicarbonate 50 ml/ Sodium Chloride 1,050 ml @ 75 mls/hr Q14H IV 06/12/24 08:15 UNV Budesonide 0.5 mg BID NEB 06/12/24 10:00 UNV Hydrocortisone Sodium Succinate 50 mg Q12HR IV 06/12/24 10:00 UNV Laboratory Results Laboratory Tests 06/12/24 04:31 Chemistry Test 06/11/24 16:37 06/12/24 04:31 Albumin 4.3 g/dL (3.2-4.8) Calcium Level 9.9 mg/dL (8.7-10.4) 7.7 mg/dL (8.7-10.4) L Total Protein 6.6 g/dL (5.7-8.2) Lipid panel Test 06/11/24 16:37 Lipase 25 U/L (12-53) Cardiac Markers Test 06/11/24 17:23 B-Type Natriuretic Peptide 75.18 pg/mL (0-100) LFT Test 06/11/24 16:37 Alanine Aminotransferase (ALT) 13 U/L (7-40) Alkaline Phosphatase 112 U/L (46-116) Aspartate Amino Transferase (AST) 19 U/L (13-40) Total Bilirubin 0.7 mg/dL (0.2-1.0) HgA1c, TSH Test 06/11/24 16:37 Hemoglobin A1c 5.4 % A1C (<5.7) Urinalysis Test 06/11/24 20:30 Urine Color Light-yellow (Yellow) Urine Clarity Turbid (Clear) H Urine pH 6.5 (5.0-9.0) Urine Specific [place] 1.025 (1.001-1.035) Urine Protein Trace (Negative) H Urine Ketones Negative (Negative) Urine Blood 1+ /uL (Negative) H Urine Nitrite Negative (Negative) Urine Bilirubin Negative (Negative) Urine Urobilinogen Normal mg/dL (Negative) Urine Leukocyte Esterase 2+ /uL (Negative) Urine RBC 7 /hpf (0 - 4) Urine WBC 11 /hpf (0 - 5) Urine Squamous Epithelial Cells Few /hpf (<5) Urine Bacteria Many /hpf (None Seen) H Urine Glucose Normal mg/dL (Normal) Blood Gas Results Test 06/11/24 23:45 06/12/24 01:28 06/12/24 06:22 Arterial Blood pH 7.187 (7.350-7.450) 7.244 (7.350-7.450) 7.198 (7.350-7.450) FiO2 % 75.0 40.0 55.0 Labs and/or images reviewed: Labs reviewed by me, Image(s) reviewed by me Assessment/Plan Assessment/Plan Impression: -metabolic encephalopathy -sepsis with shock -community-acquired pneumonia, probable Gram-positive/Gram-negative etiology. Possible aspiration etiology -history of COPD -primary hypertension -NSTEMI type 2 secondary to sepsis -acute hypoxic respiratory failure with mechanical ventilation Plan: -continue current vasopressor therapy, patient noted to have a systolic of 130 mmHg. Please wean norepinephrine drip -antibiotic therapy: Continue meropenem, add vancomycin -continue bronchodilators q.6 hours, noted patient was on trilogy. Add Pulmicort b.i.d. -hydrocortisone IV 50 mg b.i.d. -PUD, DVT prophylaxis -start sodium bicarbonate drip -change ventilator settings: A.c. 22, tidal volume 450, peep of five -repeat labs, chest x-ray, ABG in a.m. Critical care time spent with patient discussing and formulating plan of care: 40 minutes. This does not include time spent performing procedures. This medical document was created using an electronic medical record system with [employer] system. Although this document has been carefully reviewed, there may still be some phonetic and typographical errors. These areas are purely typographical due to imperfections of the software programs, and do not reflect any compromise in the patient's medical care. Plan discussed with: Patient, Other (RN) My Orders Orders - VIRGEN MANZO NP Procedure Category Date Status Time Rapid Influenza A&B LAB 06/12/24 Logged 08:14 Covid19 Antigen [facility] LAB 06/12/24 Logged Vancomycin Per PHA 06/12/24 Logged Pharmacy 08:15 Sodium Bicarb PHA 06/12/24 Logged 50meq/50ml Vial 08:15 Sod Chl 0.45% PHA 06/12/24 Logged (Sodi... W/Sodium 08:15 Basic Metabolic Panel LAB 06/13/24 Verified 04:00 Budesonide PHA 06/12/24 Logged (Inhalation) 10:00 Abg W/ Co-Ox RT 06/12/24 Logged 10:00 Ventilator Orders RT 06/12/24 Transmitted 08:19 Hydrocortisone PHA 06/12/24 Logged Succinate Inj 10:00 Date of Service: Jun 12, 2024 Billing Provider: VIRGEN MANZO NP Common Visit Codes: [id number] CARE 30-74 MIN VIRGEN MANZO NP Jun 12, 2024 08:33
[2024-06-12] MEDS: BUDESONIDE (INHALATION) 0.5 MG/2 ML NEB NEB SCH (10:00)
[2024-06-12] MEDS: PANTOPRAZOLE 40 MG/10 ML VIAL INJ IV SCH (10:00)
[2024-06-12] MEDS: HYDROCORTISONE SOD SUCC 100 MG/2ML INJ VIAL IV SCH (10:00)
[2024-06-12] MEDS: ENOXAPARIN SOD 40 MG/0.4 ML SYRINGE SC SCH (10:00)
[2024-06-12] MEDS ORDERED: HYDR25TA4 PO (10:25)
[2024-06-12 10:34] LABS: Base Excess -9.7 mmol/L (-2.0-3.0)
[2024-06-12] MEDS: MEROPENEM 1GM IVPB 50 ML IV SCH (12:00)
[2024-06-12 12:09] LABS: Rapid Influenza A Negative (Negative); Rapid Influenza B Negative (Negative)
[2024-06-12 12:10] LABS: COVID19 ANTIGEN SOFIA FIA NEGATIVE (NEGATIVE)
--- NOTE | 2024-06-12 14:09 | DVHSR ---
APPROVED REPORT EXAM: Two-dimensional and M-mode echocardiogram with Doppler and color Doppler. Blood Pressure: 112/43 mmHg INDICATION SOB RISK FACTORS Height: 67, Weight: 170 DIMENSIONS LVDd4.0 (3.8-5.7cm)LA (2D)3.6 (1.9-4.0cm)Aortic Root3.0 (2.0-3.7cm) LVDs2.8 (2.5-4.0cm)LA (MM) (1.9-4.0cm)Aortic Cusp Exc1.6 (1.5-2.0cm) EF (%) 60.0 (55-70%)Rt. Atrium3.6 (1.9-4.0cm)Asc. Aorta cm IVSd1.0 (0.7-1.1cm)RV (D) (1.8-2.4cm) PWd1.1 (0.7-1.1cm) Mitral Valve MitralMitral Stenosis E wave1.17m/sMV Mean GR.mmHg A wave0.72m/sMV Peak GR.mmHg E/A ratio1.62D MVAcm2 DECEL [id number] 1/2 Cyen50gc IVRTmsDop MVA3.53cm2 Aortic Valve Aortic ValveAortic Stenosis V11.33m/Bill Mean GR.4mmHg V21.59m/Bill Peak GR.10mmHg LVOT Diameter1.8 (1.8-2.4cm)Doppler AVA2.13cm2 Pulmonic Valve V21.01m/s Other Information Technically limited study due to patient position and patient on a vent. Conclusion 1. NORMAL LV EJECTION FRACTION IS 65% 2. NORMAL RV FUNCTION 3. MILD MVP 4. NORMAL TV.PV AND AORTIC VALVE 5. NO EFFUSION
[2024-06-12] MEDS: VANCOMYCIN 1GM/250ML KIT 250 ML IV SCH (20:30)
[2024-06-13] VITALS (61 sets, daily range): BP systolic 68–135; BP diastolic 32–74; PULSE 61–85; RESP 22; TEMP 98.6–100.4; O2SAT 95–100
[2024-06-13 03:09] LABS: Hemoglobin 11.4 g/dL (12.2-16.2)
[2024-06-13 03:15] LABS: Hematocrit 35.7 % (36.0-46.0); Mean Corpuscular Hemoglobin 28.5 pg (28.0-32.0); Mean Corpuscular Volume 89.1 fL (80.0-100.0); Platelet Count (auto) 259 10^3/uL (140-450); Red Blood Cells 4.01 10^6/uL (4.0-5.20); Red Cell Distribution Width 15.5 % (11.8-14.3); Sodium 143 mmol/L (136-145)
[2024-06-13 03:16] LABS: Anion Gap 13 (5-15)
[2024-06-13 03:17] LABS: White Blood Cell 44.4 10^3/uL (4.4-10.8)
[2024-06-13 03:18] LABS: Basophils % (manual) 0 (0.0-2.0); Blast Cells 0; Eosinophils % (manual) 0 (0-7); Metamyelocytes % 0; Myelocytes % 0; Promyelocytes % 0; Reactive Lymphocytes 0
[2024-06-13 03:21] LABS: Blood Urea Nitrogen 18 mg/dL (9-23)
[2024-06-13 03:22] LABS: Calcium 7.5 mg/dL (8.7-10.4); Carbon Dioxide 19 mmol/L (20-31); Chloride 111 mmol/L (98-107); Glucose 128 mg/dL (74-106); Potassium 3.4 mmol/L (3.5-5.1)
--- NOTE | 2024-06-13 06:40 | DVH ---
CHEST RADIOGRAPH Indication: ACUTE HYPOXIC RESPIRATORY FAILURE Technique: Single frontal view of the chest was obtained Comparison: XY CHEST XRAY 1 VIEW on DOS: 06/12/24, XY CHEST XRAY 1 VIEW on DOS: 06/11/24, XY CHEST XRAY 1 VIEW on DOS: 06/11/24 FINDINGS: Lines and Tubes: The endotracheal tube terminates 2.7 cm above the alisha. Right central venous amber ter terminates in the superior cavoatrial junction. The enteric tube terminates in the stomach. Lungs: Bilateral interstitial prominence. Pleura: Small left pleural effusion. No pneumothorax. Cardiomediastinal contours: Unremarkable Bones: No acute osseous abnormality. IMPRESSION: 1. Pulmonary vascular congestion. Small left pleural effusion.
[2024-06-13 07:20] LABS: Base Excess -4.5 mmol/L (-2.0-3.0)
[2024-06-13] MEDS: POTASSIUM CHL 20MEQ/100ML 100 ML IV SCH (08:45)
--- NOTE | 2024-06-13 08:54 | DVHPN2 ---
Subjective Patient intubated and sedated Reviewed: Care Plan, H&P, Labs, Medications Changes from previous H/P or p: No Changes General: Per HPI Objective Vitals Vital Signs Date Time Temp Pulse Resp B/P (MAP) Pulse Ox O2 Delivery O2 Flow Rate FiO2 06/13/24 08:00 73 22 125/44 (71) 95 35 06/13/24 07:00 98.8 209.8 06/12/24 21:15 Mechanical Ventilator+ 06/11/24 21:30 6 Intake/Output Intake and Output 06/13/24 06:59 Intake Total 3693.75 ml Output Total 1950 ml Balance 1743.75 ml Intake IV Total 3693.75 ml Output Urine Total 1950 ml General Appearance: mild distress, Other (Chemically sedated) HEENT: Atraumatic, PERRLA Lungs: Other (Course rhonchi to right upper and lower lobe. Mechanical ventilation) Cardiovascular: Normal S1, Normal S2, Other (Sinus rhythm) Abdomen: Other (Hypoactive bowel sounds) Genitourinary: No Apparent Abnormalities (White catheter) Extremities: No clubbing, No cyanosis, No edema, No tenderness/swelling Neuro: Other (Unable to assess) Skin: Dry, Intact Psych/Mental Status: Other (Unable to assess) Medications Current Medications Medications Dose Ordered Sig/Ilan Route Start Time Stop Time Status Last Admin Dose Admin Propofol 100 ml @ 2.316 mls/ hr Q24H IV 06/11/24 21:15 06/11/24 21:40 2.316 MLS/HR Fentanyl Citrate 250 ml @ 2.5 mls/hr Q24H IV 06/11/24 21:15 06/13/24 05:27 15 MLS/HR Morphine Sulfate 2 mg Q30M PRN IV 06/11/24 22:00 Nitroglycerin 0.4 mg Q5MINP PRN SL 06/11/24 22:00 Vancomycin HCl 0 ml @ 0 mls/hr UD IV 06/11/24 22:00 Albuterol 2.5 mg Q6HR NEB 06/12/24 00:00 06/13/24 06:08 2.5 MG Ipratropium [place] 0.5 mg Q6HR NEB 06/12/24 00:00 06/13/24 06:08 0.5 MG Meropenem 50 ml @ 17 mls/hr Q12H IV 06/12/24 12:00 06/12/24 23:54 17 MLS/HR Midazolam HCl 50 ml @ 1 mls/hr Q24H IV 06/12/24 01:15 06/13/24 06:14 8 MLS/HR Norepinephrine Bitartrate 250 ml @ 3.75 mls/hr Q24H IV 06/12/24 01:15 06/13/24 07:02 18.75 MLS/HR Vasopressin 20 units/Sodium Chloride 100 ml @ 9 mls/hr Q11H7M IV 06/12/24 01:45 06/12/24 04:00 9 MLS/HR Pantoprazole Sodium 40 mg DAILY IV 06/12/24 10:00 06/12/24 10:00 40 MG Enoxaparin Sodium 40 mg DAILY SC 06/12/24 10:00 06/12/24 10:00 40 MG Vancomycin HCl 0 ml @ 0 mls/hr UD IV 06/12/24 08:15 Cancel Budesonide 0.5 mg BID NEB 06/12/24 10:00 Hydrocortisone Sodium Succinate 50 mg Q12HR IV 06/12/24 10:00 06/12/24 21:01 50 MG Vancomycin HCl 250 ml @ 250 mls/hr Q24H IV 06/12/24 20:00 06/12/24 20:30 250 MLS/HR Acetaminophen 650 mg Q6HP PRN GT 06/12/24 14:30 Potassium Chloride 100 ml @ 50 mls/hr Q2H IV 06/13/24 08:15 06/13/24 12:14 06/13/24 08:45 50 MLS/HR Laboratory Results Laboratory Tests 06/13/24 02:25 Chemistry Test 06/13/24 02:25 Calcium Level 7.5 mg/dL (8.7-10.4) L Urinalysis Test 06/11/24 20:30 Urine Color Light-yellow (Yellow) Urine Clarity Turbid (Clear) H Urine pH 6.5 (5.0-9.0) Urine Specific [place] 1.025 (1.001-1.035) Urine Protein Trace (Negative) H Urine Ketones Negative (Negative) Urine Blood 1+ /uL (Negative) H Urine Nitrite Negative (Negative) Urine Bilirubin Negative (Negative) Urine Urobilinogen Normal mg/dL (Negative) Urine Leukocyte Esterase 2+ /uL (Negative) Urine RBC 7 /hpf (0 - 4) Urine WBC 11 /hpf (0 - 5) Urine Squamous Epithelial Cells Few /hpf (<5) Urine Bacteria Many /hpf (None Seen) H Urine Glucose Normal mg/dL (Normal) Blood Gas Results Test 06/12/24 10:28 06/13/24 07:08 Arterial Blood pH 7.246 (7.350-7.450) 7.360 (7.350-7.450) FiO2 % 40.0 35.0 Microbiology Microbiology Date/Time Source Procedure Growth Status 06/11/24 16:40 Blood Blood Culture - Preliminary NO GROWTH AFTER 24 HOURS OF INCUBATION. Resulted Labs and/or images reviewed: Labs reviewed by me, Image(s) reviewed by me Assessment/Plan Assessment/Plan Impression: -metabolic encephalopathy -sepsis with shock -community-acquired pneumonia, probable Gram-positive/Gram-negative etiology. Possible aspiration etiology -history of COPD -primary hypertension -NSTEMI type 2 secondary to sepsis -acute hypoxic respiratory failure with mechanical ventilation Plan: Events: Patient has vasopressor therapy has improved. WBC trending down. Patient was no longer acidotic. Hypokalemic -continue current vasopressor therapy, -antibiotic therapy: Continue meropenem, add vancomycin -continue bronchodilators and Pulmicort -hydrocortisone IV 50 mg b.i.d. -PUD, DVT prophylaxis -discontinue odium bicarbonate drip -continue current ventilator settings -Start tube feeding -repeat labs, chest x-ray, ABG in a.m. Critical care time spent with patient discussing and formulating plan of care: 40 minutes. This does not include time spent performing procedures. This medical document was created using an electronic medical record system with [employer]ation system. Although this document has been carefully reviewed, there may still be some phonetic and typographical errors. These areas are purely typographical due to imperfections of the software programs, and do not reflect any compromise in the patient's medical care. Plan discussed with: Patient, Other (RN) My Orders Orders - VIRGEN MANZO [employer] DES[employer] Procedure Category Date Status Time Abg W/ Co-Ox RT 06/12/24 Logged 10:00 Acetaminophen PHA 06/12/24 In Process Solution Oral 14:30 Chest Portable XY 06/13/24 Resulted 04:00 Abg W/ Co-Ox RT 06/13/24 Logged 07:00 Potassium Chl PHA 06/13/24 In Process 20meq/100ml 08:15 Date of Service: Jun 13, 2024 Billing Provider: VIRGEN MANZO NP Common Visit Codes: [id number] CARE 30-74 MIN VIRGEN MANZO NP Jun 13, 2024 08:54
[2024-06-13 09:14] LABS: Band Neutrophils % (manual) 45; Lymphocytes % (manual) 2 (10.0-50.0); Monocytes % (manual) 4 (0-12); Platelet Estimate Adequate
--- NOTE | 2024-06-13 18:36 | DVHINCON2 ---
Date of service: Jun 13, 2024 Referring Physician Reina El MD Reason for Consultation Acute hypoxic respiratory failure requiring mechanical ventilator. History of Present Illness A 69-year-old woman with past medical history of COPD, hypertension and osteoporosis who was brought in to ED via EMS on 06/11/24 for altered level of consciousness. Per EMS, family found pt on the floor in restroom for unknown time and called EMS. EMS arrived on scene and pt was alert and oriented x 2 but slow to answer questions and able to follow simple commands. In the ED, patient was tachycardic, tachypneic, desaturating on 6 L of oxygen. The patient was then intubated and admitted for further care. Pulmonary consultation is requested for evaluation and management of acute hypoxic respiratory failure requiring mechanical ventilator. Review of Systems: Unable to be obtained due to intubated status. Past Medical History: COPD, hypertension, osteoporosis Past Surgical History: None Medications: Reviewed. Allergies: No known drug allergies. Family History: No family history of premature CAD. No family history of lung disorders. Social History: Nonsmoker. No alcohol or illicit drug use. Family History: Patient reports no known family medical history. Allergies: Coded Allergies: NO KNOWN ALLERGIES (Unverified , 06/11/24) Home Meds Reported Medications Atenolol (Atenolol) 25 Mg Tab, 1 TAB PO DAILY for 90 Days, #90 06/12/24 Celecoxib (Celecoxib) 100 Mg Cap, 1 CAP PO DAILY for 90 Days, #90 TAKE ONE CAPSULE BY MOUTH ONE TIME DAILY WITH FOOD 06/12/24 Hydrochlorothiazide (Hydrochlorothiazide) 25 Mg Tab, 1 TAB PO QAM for 90 Days, #90 TAKE ONE TABLET BY MOUTH EVERY DAY IN THE MORNING 06/12/24 Xgsteasdxsf-Hndkekrvzhlk-Byekw (Trelegy Ellipta 200-62.5-25 Mcg/INH) 1 Aer Aer, 1 PUFF PO DAILY for 90 Days, #180 INHALE ONE PUFF BY MOUTH ONE TIME DAILY 06/12/24 Lidocaine (Lidocaine) 5 % Pad, 1 PATCH TOP DAILY for 30 Days, #30 APLLY ONE PATCH DAILY ON FOR 12 HOURS REMOVE AFTER 12 HOURS 06/12/24 Pantoprazole Sodium Sesquihydr (Pantoprazole Sodium) 40 Mg Tab, 1 TAB PO DAILY for 90 Days, #90 06/12/24 Hydrocodone-Acetaminophen (Hydrocodone/Acetaminophen 10-325 mg) 1 Tab Tab, 1 TAB PO Q8HR for 30 Days, #90 06/12/24 Losartan Potassium (Losartan Potassium) 50 Mg Tab, 1 TAB PO DAILY for 60 Days, #60 06/12/24 Gabapentin (Gabapentin) 400 Mg Cap, 1 CAP PO Q12HR for 30 Days, #60 06/12/24 Alendronate Sodium (Alendronate Sodium) 70 Mg Tab, 1 TAB PO QWEEKLY for 48 Days TAKE 1 TABLET BY MOUTH 30 MINUTES BEFORE THE FIRST FOOD, BEVERAGE OR MEDICINE OF THE DAY WITH PLAIN WATER 06/12/24 Current Medications Current Medications Medications (Trade) Dose Ordered Sig/Ilan Route PRN Reason Start Time Stop Time Status Last Admin Vancomycin HCl 250 ml @ 250 mls/hr Q24H IV 06/12/24 20:00 06/12/24 20:30 Potassium Chloride 100 ml @ 50 mls/hr Q2H IV 06/13/24 08:15 06/13/24 12:14 DC 06/13/24 10:31 Enteral Nutritional Formula (Jevity 1.2 Nirav/ Fiber) 1,000 ml 30ML/HR GT 06/13/24 09:00 Vital Signs Vital Signs Date Time Temp Pulse Resp B/P (MAP) Pulse Ox O2 Delivery O2 Flow Rate FiO2 06/13/24 17:00 124/42 06/13/24 16:05 71 22 96 35 06/13/24 15:45 99.1 99.1 06/13/24 09:29 Mechanical Ventilator+ 06/11/24 21:30 6 Physical Exam Gen.: Patient lying in bed in medical ICU. Sedated, intubated on mechanical ventilator. Head: Normocephalic, atraumatic. Eyes: PERRLA. Ears: Normal external anatomy. Throat: Endotracheal tube and orogastric tube in place. Neck: Supple, trachea midline. Chest: Transmitted breath sounds bilaterally. Decreased air entry bilaterally. No wheezing. Bibasilar crackles. Cardiovascular: Positive S1, positive S2. Regular rate and rhythm. Abdomen: Positive bowel sounds in all 4 quadrants. Soft, nontender, nondistended. : White in place. Normal external genitalia. Rectal: Deferred. Skin: Warm, dry. Intact. Extremities: 2+ radial pulses bilaterally. No lower extremity edema. Neuro: Sedated. Labs/Diagnostic Data Labs Test 06/13/24 07:08 06/13/24 02:25 06/12/24 10:50 06/12/24 10:28 Range/Units Blood Gas Specimen Type Arterial Blood Gas Sample Site Arterial line Blood Gas Patient Temperature 37.0 Arterial Blood Date Drawn [id number] Arterial Blood pH 7.360 7.350-7.450 Arterial Blood Partial Pressure CO2 37.0 32.0-45.0 mmHg Arterial Blood Partial Pressure O2 73.4 L 83.0-108.0 mmHg Arterial Blood HCO3 20.4 L 21.0-28.0 mmol/L Arterial Blood Oxygen Saturation 94.6 94.0-98.0 % Arterial Blood Base Excess -4.5 L -2.0-3.0 mmol/L Arterial Blood Oxyhemoglobin 94.0 94.0-98.0 % Arterial Blood Carboxyhemoglobin 0.3 L 0.5-1.5 % Arterial Blood Methemoglobin 0.3 0.0-1.5 % Glenn Test Modified Blood Gas Total Hemoglobin 10.10 L 12.0-16.0 g/dL Blood Gas Set Respiration Rate 22.0 Blood Gas Modality Vent - ac FiO2 % 35.0 Blood Gas Tidal Volume 450.0 Blood Gas PEEP or CPAP 5.0 White Blood Count 44.4 #*H 4.4-10.8 10^3/uL Red Blood Count 4.01 4.0-5.20 10^6/uL Hemoglobin 11.4 L 12.2-16.2 g/dL Hematocrit 35.7 L 36.0-46.0 % Mean Corpuscular Volume 89.1 80.0-100.0 fL Mean Corpuscular Hemoglobin 28.5 28.0-32.0 pg Mean Corpuscular Hemoglobin Concent 32.0 32.0-36.0 g/dL Red Cell Distribution Width 15.5 H 11.8-14.3 % Platelet Count 259 140-450 10^3/uL Mean Platelet Volume 9.3 6.9-10.8 fL Neutrophils (%) (Auto) 37.0-80.0 % Lymphocytes (%) (Auto) 10.0-50.0 % Monocytes (%) (Auto) 0.0-12.0 % Basophils (%) (Auto) 0.0-2.0 % Neutrophils # (Auto) 1.6-8.6 10 ^3/uL Lymphocytes # (Auto) 0.4-5.4 10 ^3/uL Monocytes # (Auto) 0-1.3 10 ^3/uL Differential Total Cells Counted 100.0 100 Neutrophils % (Manual) 49 37.0-80.0 Band Neutrophils % (Manual) 45 Lymphocytes % (Manual) 2 L 10.0-50.0 Monocytes % (Manual) 4 0-12 Eosinophils % (Manual) 0 0-7 Basophils % (Manual) 0 0.0-2.0 Metamyelocytes % (manual) 0 Myelocytes % (Manual) 0 Promyelocytes % (Manual) 0 Blast Cells % (Manual) 0 Reactive Lymphocytes 0 Platelet Estimate Adequate Sodium Level 143 136-145 mmol/L Potassium Level 3.4 L 3.5-5.1 mmol/L Chloride Level 111 H 98-107 mmol/L Carbon Dioxide Level 19 L 20-31 mmol/L Anion Gap 13 5-15 Blood Urea Nitrogen 18 9-23 mg/dL Creatinine 0.90 0.550-1.02 mg/dL Glomerular Filtration Rate Calc 70 >90 mL/min BUN/Creatinine Ratio 20.0 10.0-20.0 Serum Glucose 128 H 74-106 mg/dL Calcium Level 7.5 L 8.7-10.4 mg/dL POC Glucose 114 H 70-106 mg/dl Blood Gas Critical Value Read Back yes Blood Gas Notified Whom wendy Benson Blood Gas Notified Time [id number] Blood Gas Notified By Test 06/12/24 08:14 06/12/24 04:31 06/12/24 00:00 06/11/24 22:36 Range/Units Influenza Type A Antigen Negative Negative Influenza Type B Antigen Negative Negative Lactic Acid Level 1.4 0.4-2.0 mmol/L SARS-CoV-2 Antigen (Rapid) Negative NEGATIVE Ammonia 24 11-32 umol/L Plasma/Serum Blood Alcohol < 3.0 <10 mg/dL Test 06/11/24 20:30 06/11/24 19:11 06/11/24 17:23 06/11/24 16:37 Range/Units Urine Color Light-yellow Yellow Urine Clarity Turbid H Clear Urine pH 6.5 5.0-9.0 Urine Specific [place] 1.025 1.001-1.035 Urine Protein Trace H Negative Urine Ketones Negative Negative Urine Blood 1+ H Negative /uL Urine Nitrite Negative Negative Urine Bilirubin Negative Negative Urine Urobilinogen Normal Negative mg/dL Urine Leukocyte Esterase 2+ Negative /uL Urine RBC 7 0 - 4 /hpf Urine WBC 11 0 - 5 /hpf Urine Squamous Epithelial Cells Few <5 /hpf Urine Bacteria Many H None Seen /hpf Urine Glucose Normal Normal mg/dL Urine Opiates Screen Pos NEGATIVE Urine Fentanyl Screen Neg NEGATIVE Urine Barbiturates Screen Neg NEGATIVE Urine Phencyclidine Screen Neg NEGATIVE Urine Amphetamines Screen Neg NEGATIVE Urine Benzodiazepines Screen Neg NEGATIVE Urine Cocaine Screen Neg NEGATIVE Urine Cannabinoids Screen Neg NEGATIVE Troponin I High Sensitivity 42 *H </=34 ng/L B-Type Natriuretic Peptide 75.18 0-100 pg/mL Hemoglobin A1c 5.4 <5.7 % A1C Total Bilirubin 0.7 0.2-1.0 mg/dL Aspartate Amino Transferase (AST) 19 13-40 U/L Alanine Aminotransferase (ALT) 13 7-40 U/L Alkaline Phosphatase 112 46-116 U/L Creatine Kinase 50 34-145 U/L Total Protein 6.6 5.7-8.2 g/dL Albumin 4.3 3.2-4.8 g/dL Lipase 25 12-53 U/L Microbiology Date/Time Source Procedure Growth Status 06/11/24 21:50 Trachea Gram Stain - Final Resulted 06/11/24 21:50 Trachea Respiratory Culture - Preliminary Resulted 06/11/24 20:30 Voided Urine Urine Culture - Preliminary Resulted 06/11/24 16:40 Blood Blood Culture - Preliminary NO GROWTH AFTER 48 HOURS OF INCUBATION. Resulted Assessment Impression: Acute hypoxic respiratory failure On mechanical ventilator Metabolic encephalopathy Sepsis with shock Pneumonia COPD Hypertension NSTEMI type 2 secondary to sepsis Plan: s/p intubation on mechanical ventilator. CXR image and report reviewed. Devices in place. Pulmonary vascular congestion. Small left pleural effusion. No pneumothorax. ABG reviewed, compensated. On AC mode; RR 22, VT 450, PEEP 5, FiO2 35% Titrate FIO2 to keep O2 saturation above 90%. VAP bundle. Daily ABG and CXR while intubated Sedate for ventilator synchrony - on Versed 8 mg/hr. Continue bronchodilators. Continue antibiotics. IV steroids On pressors for hemodynamic support Levophed 8 mcg/min Titrate to keep mean arterial pressure greater than 65 mmHg. Off vasopressin Improving pressor requirements. Monitor renal function Monitor electrolytes. Supplement as necessary. Monitor ins and outs. Maintain euvolemia. GI prophylaxis. DVT prophylaxis. Prognosis: Poor given patient's multiple co-morbidities. Condition: Critical Rest of plan per hospitalist and other consultants. A total of 35 minutes of critical care time was spent reviewing the patient record, examining the patient, making a diagnostic and therapeutic plan, discussing this plan with the medical personnel, following up on diagnostic studies and following the patient for clinical stability excluding any and all procedures. At least 50% of this time was spent in direct, [id number] contact. Thank you, Dr. El, for allowing me to participate in this patient's care. Further recommendations will depend on the patient's clinical course. Please do not hesitate to contact me if you have any questions or concerns. This medical document was created using an electronic medical record system with [employer] dictation system. Although these documentations are being carefully reviewed, there may still be some phonetic and typographical changes. The errors are purely typographical, due to imperfection on the software program, and do not reflect any compromise in the patient's medical care. Plan discussed with: Other (SONNY Cox/MD El) ZENAIDA SORIANO MD Jun 13, 2024 18:36
[2024-06-13] MEDS: ACETAMINOPHEN 650 mg PER 20.3 mL UD GT PRN (20:54)
[2024-06-14] VITALS (106 sets, daily range): BP systolic 91–168; BP diastolic 37–60; PULSE 52–121; RESP 14–27; TEMP 97.3–99.7; O2SAT 90–100
[2024-06-14 04:39] LABS: Hemoglobin 11.3 g/dL (12.2-16.2)
[2024-06-14 04:42] LABS: Hematocrit 34.7 % (36.0-46.0); Mean Corpuscular Hemoglobin 29.1 pg (28.0-32.0); Mean Corpuscular Hgb Conc. 32.7 g/dL (32.0-36.0); Mean Corpuscular Volume 88.9 fL (80.0-100.0); Platelet Count (auto) 285 10^3/uL (140-450); Red Cell Distribution Width 15.2 % (11.8-14.3)
[2024-06-14 04:47] LABS: White Blood Cell 36.4 10^3/uL (4.4-10.8)
[2024-06-14 04:48] LABS: Basophils % (manual) 0 (0.0-2.0); Blast Cells 0; Eosinophils % (manual) 0 (0-7); Metamyelocytes % 0; Myelocytes % 0; Promyelocytes % 0; Reactive Lymphocytes 0; Sodium 145 mmol/L (136-145)
[2024-06-14 04:49] LABS: Anion Gap 9 (5-15); Carbon Dioxide 22 mmol/L (20-31)
[2024-06-14 04:54] LABS: Blood Urea Nitrogen 18 mg/dL (9-23)
[2024-06-14 04:58] LABS: Calcium 8.2 mg/dL (8.7-10.4); Chloride 114 mmol/L (98-107); Glucose 123 mg/dL (74-106); Potassium 3.5 mmol/L (3.5-5.1)
[2024-06-14 05:35] LABS: Band Neutrophils % (manual) 3; Lymphocytes % (manual) 2 (10.0-50.0); Monocytes % (manual) 3 (0-12); Platelet Estimate Adequate
--- NOTE | 2024-06-14 07:41 | DVHPN2 ---
Subjective Patient intubated and sedated Reviewed: Care Plan, H&P, Labs, Medications Changes from previous H/P or p: No Changes General: Per HPI Objective Vitals Vital Signs Date Time Temp Pulse Resp B/P (MAP) Pulse Ox O2 Delivery O2 Flow Rate FiO2 06/14/24 06:43 59 22 142/50 (80) 97 30 06/14/24 06:00 98.6 209.5 06/14/24 01:30 Mechanical Ventilator+ Intake/Output Intake and Output 06/14/24 07:00 Intake Total 1499.425 ml Output Total 500 ml Balance 999.425 ml Intake IV Total 1499.425 ml Output Urine Total 500 ml General Appearance: mild distress, Other (Chemically sedated) HEENT: Atraumatic, PERRLA Lungs: Other (Course rhonchi to right upper and lower lobe. Mechanical ventilation) Cardiovascular: Normal S1, Normal S2, Other (Sinus rhythm) Abdomen: Other (Hypoactive bowel sounds) Genitourinary: No Apparent Abnormalities (White catheter) Extremities: No clubbing, No cyanosis, No edema, No tenderness/swelling Neuro: Other (Unable to assess) Skin: Dry, Intact Psych/Mental Status: Other (Unable to assess) Medications Current Medications Medications Dose Ordered Sig/Ilan Route Start Time Stop Time Status Last Admin Dose Admin Propofol 100 ml @ 2.316 mls/ hr Q24H IV 06/11/24 21:15 06/11/24 21:40 2.316 MLS/HR Fentanyl Citrate 250 ml @ 2.5 mls/hr Q24H IV 06/11/24 21:15 06/13/24 05:27 15 MLS/HR Morphine Sulfate 2 mg Q30M PRN IV 06/11/24 22:00 Nitroglycerin 0.4 mg Q5MINP PRN SL 06/11/24 22:00 Vancomycin HCl 0 ml @ 0 mls/hr UD IV 06/11/24 22:00 Albuterol 2.5 mg Q6HR NEB 06/12/24 00:00 06/14/24 06:42 2.5 MG Ipratropium [place] 0.5 mg Q6HR NEB 06/12/24 00:00 06/14/24 06:42 0.5 MG Meropenem 50 ml @ 17 mls/hr Q12H IV 06/12/24 12:00 06/13/24 23:43 17 MLS/HR Midazolam HCl 50 ml @ 1 mls/hr Q24H IV 06/12/24 01:15 06/14/24 02:08 8 MLS/HR Norepinephrine Bitartrate 250 ml @ 3.75 mls/hr Q24H IV 06/12/24 01:15 06/14/24 00:05 11.25 MLS/HR Vasopressin 20 units/Sodium Chloride 100 ml @ 9 mls/hr Q11H7M IV 06/12/24 01:45 06/12/24 04:00 9 MLS/HR Pantoprazole Sodium 40 mg DAILY IV 06/12/24 10:00 06/13/24 10:30 40 MG Enoxaparin Sodium 40 mg DAILY SC 06/12/24 10:00 06/13/24 10:31 40 MG Vancomycin HCl 0 ml @ 0 mls/hr UD IV 06/12/24 08:15 Cancel Budesonide 0.5 mg BID NEB 06/12/24 10:00 06/14/24 06:42 0.5 MG Hydrocortisone Sodium Succinate 50 mg Q12HR IV 06/12/24 10:00 06/13/24 22:00 50 MG Vancomycin HCl 250 ml @ 250 mls/hr Q24H IV 06/12/24 20:00 06/13/24 20:00 250 MLS/HR Acetaminophen 650 mg Q6HP PRN GT 06/12/24 14:30 06/13/24 20:54 650 MG Enteral Nutritional Formula 1,000 ml 30ML/HR GT 06/13/24 09:00 Laboratory Results Laboratory Tests 06/14/24 04:25 Chemistry Test 06/14/24 04:25 Calcium Level 8.2 mg/dL (8.7-10.4) L Urinalysis Test 06/11/24 20:30 Urine Color Light-yellow (Yellow) Urine Clarity Turbid (Clear) H Urine pH 6.5 (5.0-9.0) Urine Specific [place] 1.025 (1.001-1.035) Urine Protein Trace (Negative) H Urine Ketones Negative (Negative) Urine Blood 1+ /uL (Negative) H Urine Nitrite Negative (Negative) Urine Bilirubin Negative (Negative) Urine Urobilinogen Normal mg/dL (Negative) Urine Leukocyte Esterase 2+ /uL (Negative) Urine RBC 7 /hpf (0 - 4) Urine WBC 11 /hpf (0 - 5) Urine Squamous Epithelial Cells Few /hpf (<5) Urine Bacteria Many /hpf (None Seen) H Urine Glucose Normal mg/dL (Normal) Microbiology Microbiology Date/Time Source Procedure Growth Status 06/11/24 21:50 Trachea Gram Stain - Final Resulted 06/11/24 21:50 Trachea Respiratory Culture - Preliminary Resulted 06/11/24 20:30 Voided Urine Urine Culture - Preliminary Resulted 06/11/24 16:40 Blood Blood Culture - Preliminary NO GROWTH AFTER 48 HOURS OF INCUBATION. Resulted Labs and/or images reviewed: Labs reviewed by me, Image(s) reviewed by me Assessment/Plan Assessment/Plan Impression: -metabolic encephalopathy -sepsis with shock -community-acquired pneumonia, probable Gram-positive/Gram-negative etiology. Possible aspiration etiology -history of COPD -primary hypertension -NSTEMI type 2 secondary to sepsis -acute hypoxic respiratory failure with mechanical ventilation Plan: Events: Declined decrease vasopressor therapy. White blood cell count continues to improve. Patient continues to be afebrile. FiO2 now at 30%. -continue current vasopressor therapy, -antibiotic therapy: Continue meropenem, add vancomycin -continue bronchodilators and Pulmicort -hydrocortisone IV 50 mg b.i.d. -PUD, DVT prophylaxis -discontinue odium bicarbonate drip -continue current ventilator settings , weaned sedation and proceed with CPAP trial once patient was appropriate -repeat labs, chest x-ray, ABG in a.m. Critical care time spent with patient discussing and formulating plan of care: 40 minutes. This does not include time spent performing procedures. This medical document was created using an electronic medical record system with [email or web address] dictation system. Although this document has been carefully reviewed, there may still be some phonetic and typographical errors. These areas are purely typographical due to imperfections of the software programs, and do not reflect any compromise in the patient's medical care. Plan discussed with: Patient, Other (RN) My Orders Orders - VIRGEN MANZO HAM TRIMMER Procedure Category Date Status Time Nutritional PHA 06/13/24 In Process Supplements (Jevity 09:00 Basic Metabolic Panel LAB 06/15/24 Verified 05:00 Basic Metabolic Panel LAB 06/16/24 Verified 05:00 Complete Blood Count LAB 06/15/24 Verified 05:00 Complete Blood Count LAB 06/16/24 Verified 05:00 *Consult CONS 06/13/24 Transmitted / 10:00 Abg W/ Co-Ox RT 06/14/24 Logged 06:00 Date of Service: Jun 14, 2024 Billing Provider: VIRGEN MANZO NP Common Visit Codes: [id number] CARE 30-74 MIN VIRGEN MANZO NP Jun 14, 2024 07:41
[2024-06-14 07:52] LABS: Base Excess -3.2 mmol/L (-2.0-3.0)
--- NOTE | 2024-06-14 23:37 | DVHPN2 ---
Progress Note - Dictate Date Seen: Jun 14, 2024 Medical Necessity Reason Pt with a Central, PICC or Fol: Yes The following are medically ne: Jones Catheter Reason for jones catheter: Strict I&O Subjective Patient seen and examined at bedside. intubated on mechanical ventilator. Overnight events reviewed. vital signs Vital Sign Date Time Temp Pulse Resp B/P (MAP) Pulse Ox O2 Delivery O2 Flow Rate FiO2 06/14/24 22:26 94 22 98/40 (59) 95 30 06/14/24 21:45 97.5 207.5 06/14/24 20:00 Mechanical Ventilator+ Total Intake and Output 06/13/24 06/13/24 06/14/24 15:00 23:00 07:00 Intake Total 605 ml 580.40 ml 345.775 ml Output Total 500 ml 700 ml Balance 605 ml 80.40 ml -354.225 ml medications Current Medications Medications Dose Ordered Sig/Ilan Route Start Time Stop Time Status Last Admin Dose Admin Propofol 100 ml @ 2.316 mls/ hr Q24H IV 06/11/24 21:15 06/11/24 21:40 2.316 MLS/HR Fentanyl Citrate 250 ml @ 2.5 mls/hr Q24H IV 06/11/24 21:15 06/13/24 05:27 15 MLS/HR Morphine Sulfate 2 mg Q30M PRN IV 06/11/24 22:00 Nitroglycerin 0.4 mg Q5MINP PRN SL 06/11/24 22:00 Vancomycin HCl 0 ml @ 0 mls/hr UD IV 06/11/24 22:00 Albuterol 2.5 mg Q6HR NEB 06/12/24 00:00 06/14/24 18:52 2.5 MG Ipratropium [place] 0.5 mg Q6HR NEB 06/12/24 00:00 06/14/24 18:52 0.5 MG Meropenem 50 ml @ 17 mls/hr Q12H IV 06/12/24 12:00 06/14/24 12:25 17 MLS/HR Midazolam HCl 50 ml @ 1 mls/hr Q24H IV 06/12/24 01:15 06/14/24 08:00 8 MLS/HR Norepinephrine Bitartrate 250 ml @ 3.75 mls/hr Q24H IV 06/12/24 01:15 1/3/25 00:05 11.25 MLS/HR Vasopressin 20 units/Sodium Chloride 100 ml @ 9 mls/hr Q11H7M IV 06/12/24 01:45 06/12/24 04:00 9 MLS/HR Pantoprazole Sodium 40 mg DAILY IV 06/12/24 10:00 06/14/24 11:42 40 MG Enoxaparin Sodium 40 mg DAILY SC 06/12/24 10:00 06/14/24 11:45 40 MG Vancomycin HCl 0 ml @ 0 mls/hr UD IV 06/12/24 08:15 Cancel Budesonide 0.5 mg BID NEB 06/12/24 10:00 06/14/24 18:52 0.5 MG Hydrocortisone Sodium Succinate 50 mg Q12HR IV 06/12/24 10:00 06/14/24 22:22 50 MG Acetaminophen 650 mg Q6HP PRN GT 06/12/24 14:30 06/13/24 20:54 650 MG Enteral Nutritional Formula 1,000 ml 30ML/HR GT 06/13/24 09:00 Dexmedetomidine HCl 400 mcg/ Dextrose 100 ml @ 3.86 mls/hr Q24H IV 06/14/24 19:15 Vancomycin HCl 250 ml @ 250 mls/hr Q18H IV 06/15/24 14:00 objective Gen.: Patient lying in bed in medical ICU. Intubated on mechanical ventilator. Head: Normocephalic, atraumatic. Eyes: PERRLA. Ears: Normal external anatomy. Throat: Endotracheal tube and orogastric tube in place. Neck: Supple, trachea midline. Chest: Transmitted breath sounds bilaterally. Decreased air entry bilaterally. No wheezing. Bibasilar crackles. Cardiovascular: Positive S1, positive S2. Regular rate and rhythm. Abdomen: Positive bowel sounds in all 4 quadrants. Soft, nontender, nondistended. : Jones in place. Normal external genitalia. Rectal: Deferred. Skin: Warm, dry. Intact. Extremities: 2+ radial pulses bilaterally. No lower extremity edema. Neuro: Off sedation. laboratory and microbiology Laboratory Tests 06/14/24 04:25 Test 06/14/24 04:25 Range/Units Serum Glucose 123 H 74-106 mg/dL Assessment/Plan Impression: Acute hypoxic respiratory failure On mechanical ventilator Metabolic encephalopathy Sepsis with shock Pneumonia COPD Hypertension NSTEMI type 2 secondary to sepsis Events: Remains on vent support On AC mode; RR 22, VT 450, PEEP 5, FiO2 30% Off sedation since AM. Off pressors, hemodynamically stable. ABG reviewed, notable for alkalemia. Plan for CPAP in AM. CPAP with PS 8, PEEP of 5. OK to increase PS to max 20 cmH2O to achieve tidal volume 400-450 mL. Labs and imaging reviewed. Rest of plan as noted below. Plan: s/p intubation on mechanical ventilator. CXR image and report reviewed. Devices in place. Pulmonary vascular congestion. Small left pleural effusion. No pneumothorax. ABG reviewed, compensated. On AC mode; RR 22, VT 450, PEEP 5, FiO2 30% Titrate FIO2 to keep O2 saturation above 90%. VAP bundle. Daily ABG and CXR while intubated Off sedation Continue bronchodilators. Continue antibiotics. IV steroids Pressors if necessary for hemodynamic support Titrate to keep mean arterial pressure greater than 65 mmHg. Monitor renal function Monitor electrolytes. Supplement as necessary. Monitor ins and outs. Maintain euvolemia. GI prophylaxis. DVT prophylaxis. Prognosis: Poor given patient's multiple co-morbidities. Condition: Critical Rest of plan per hospitalist and other consultants. A total of 35 minutes of critical care time was spent reviewing the patient record, examining the patient, making a diagnostic and therapeutic plan, discussing this plan with the medical personnel, following up on diagnostic studies and following the patient for clinical stability excluding any and all procedures. At least 50% of this time was spent in direct, [id number] contact. Thank you, Dr. El, for allowing me to participate in this patient's care. Further recommendations will depend on the patient's clinical course. Please do not hesitate to contact me if you have any questions or concerns. This medical document was created using an electronic medical record system with [employer] dictation system. Although these documentations are being carefully reviewed, there may still be some phonetic and typographical changes. The errors are purely typographical, due to imperfection on the software program, and do not reflect any compromise in the patient's medical care. Plan discussed with: Other (SONNY Cline) Critical Care Time(min): 35 ZENAIDA SORIANO MD Jun 14, 2024 23:37
[2024-06-15] VITALS (92 sets, daily range): BP systolic 94–138; BP diastolic 37–70; PULSE 75–114; RESP 18–31; TEMP 97.2–99.1; O2SAT 96–100
[2024-06-15 06:07] LABS: Basophils # (auto) 0.1 10 ^3/uL (0-0.2); Basophils % (auto) 0.4 % (0.0-2.0); Eosinophils # (auto) 0 10 ^3/uL (0-0.8); Hematocrit 33.2 % (36.0-46.0); Hemoglobin 10.7 g/dL (12.2-16.2); Lymphocytes # (auto) 0.7 10 ^3/uL (0.4-5.4); Lymphocytes % (auto) 3.9 % (10.0-50.0); Mean Corpuscular Hemoglobin 28.6 pg (28.0-32.0); Mean Corpuscular Hgb Conc. 32.3 g/dL (32.0-36.0); Mean Corpuscular Volume 88.3 fL (80.0-100.0); Monocytes # (auto) 0.6 10 ^3/uL (0-1.3); Monocytes % (auto) 3.4 % (0.0-12.0); Neutrophils # (auto) 16.4 10 ^3/uL (1.6-8.6); Neutrophils % (auto) 92.3 % (37.0-80.0); Platelet Count (auto) 247 10^3/uL (140-450); Red Blood Cells 3.76 10^6/uL (4.0-5.20); Red Cell Distribution Width 15.4 % (11.8-14.3); White Blood Cell 17.8 10^3/uL (4.4-10.8)
[2024-06-15 06:18] LABS: Anion Gap 10 (5-15); Carbon Dioxide 24 mmol/L (20-31)
[2024-06-15 06:20] LABS: Calcium 8.7 mg/dL (8.7-10.4); Chloride 115 mmol/L (98-107); Sodium 149 mmol/L (136-145)
[2024-06-15 06:23] LABS: Base Excess -0.9 mmol/L (-2.0-3.0)
[2024-06-15 06:24] LABS: Glucose 110 mg/dL (74-106)
[2024-06-15 06:45] LABS: BUN/Creatinine Ratio 31.4 (10.0-20.0); Blood Urea Nitrogen 22 mg/dL (9-23)
[2024-06-15] MEDS: MAGNESIUM SULFATE 1GM/100ML 100 ML IV SCH (09:00)
--- NOTE | 2024-06-15 09:29 | DVH ---
XY CHEST PORTABLE, HISTORY: pt intubated COMPARISON: XY CHEST PORTABLE on DOS: 06/13/24, XY CHEST XRAY 1 VIEW on DOS: 06/12/24, XY CHEST XRAY 1 EW on DOS: 06/11/24 XY CHEST PORTABLE on DOS: 06/13/24, XY CHEST XRAY 1 VIEW on DOS: 06/12/24, XY CHEST XRAY 1 VIEW on DOS: 1 TECHNICAL DATA: 1 view of the chest was obtained. FINDINGS: Lines and tubes: ET, NG, CVC in stable position. Cardiomediastinal silhouette: Prominent Pulmonary vasculature: normal Lung expansion: normal Lung airspace: Multifocal patchy airspace opacity Lung interstitium: Increased Pleura: normal Pneumothorax: no Bones: Unremarkable Other: no IMPRESSION: Stable lines and tubes. Similar lung aeration bilaterally with right > left patchy airspace opacities.
[2024-06-15] MEDS: POTASSIUM CHL 20MEQ/100ML 100 ML IV SCH (10:27)
[2024-06-15] MEDS: VANCOMYCIN 1GM/250ML KIT 250 ML IV SCH (14:15)
[2024-06-15] MEDS: Jevity 1.2 Cal/Fiber 1 Liter GT SCH (16:32)
[2024-06-15] MEDS: POTASSIUM CHLORIDE 40 MEQ in SOD CHL 0.45% 1,000 ML IV SCH (17:30)
--- NOTE | 2024-06-15 17:35 | DVHPN2 ---
Subjective On the ventilator. Off sedation but still not awake Reviewed: Care Plan, H&P, Labs, Medications, Previous Orders, Radiology, Other ([employer]) Changes from previous H/P or p: No Changes General: Per HPI Objective Vitals Vital Signs Date Time Temp Pulse Resp B/P (MAP) Pulse Ox O2 Delivery O2 Flow Rate FiO2 06/15/24 16:30 98.6 75 22 116/47 (70) 99 209.5 06/15/24 16:01 30 06/15/24 08:00 Mechanical Ventilator+ Intake/Output Intake and Output 06/15/24 07:00 Intake Total 394.25 ml Output Total 900 ml Balance -505.75 ml Intake Oral 0 ml IV Total 394.25 ml Output Urine Total 900 ml General Appearance: Other (On the ventilator. Off sedation but not waking up yet) HEENT: Atraumatic, PERRLA Lungs: Other (Few crackles bilateral lungs with good air entry) Cardiovascular: Regular rate Abdomen: Soft, No tenderness Extremities: Other (Edema 1+ bilateral lower extremities and upper extremities) Neuro: Other (Unable to assess) Skin: Dry, Intact Psych/Mental Status: Other (Unable to assess) Medications Current Medications Medications Dose Ordered Sig/Ilan Route Start Time Stop Time Status Last Admin Dose Admin Propofol 100 ml @ 2.316 mls/ hr Q24H IV 06/11/24 21:15 06/11/24 21:40 2.316 MLS/HR Fentanyl Citrate 250 ml @ 2.5 mls/hr Q24H IV 06/11/24 21:15 06/13/24 05:27 15 MLS/HR Morphine Sulfate 2 mg Q30M PRN IV 06/11/24 22:00 Nitroglycerin 0.4 mg Q5MINP PRN SL 06/11/24 22:00 Vancomycin HCl 0 ml @ 0 mls/hr UD IV 06/11/24 22:00 Albuterol 2.5 mg Q6HR NEB 06/12/24 00:00 06/15/24 11:27 2.5 MG Ipratropium [place] 0.5 mg Q6HR NEB 06/12/24 00:00 06/15/24 11:27 0.5 MG Meropenem 50 ml @ 17 mls/hr Q12H IV 06/12/24 12:00 06/15/24 12:02 17 MLS/HR Midazolam HCl 50 ml @ 1 mls/hr Q24H IV 06/12/24 01:15 06/14/24 08:00 8 MLS/HR Norepinephrine Bitartrate 250 ml @ 3.75 mls/hr Q24H IV 06/12/24 01:15 06/14/24 00:05 11.25 MLS/HR Vasopressin 20 units/Sodium Chloride 100 ml @ 9 mls/hr Q11H7M IV 06/12/24 01:45 06/12/24 04:00 9 MLS/HR Pantoprazole Sodium 40 mg DAILY IV 06/12/24 10:00 06/15/24 10:26 40 MG Enoxaparin Sodium 40 mg DAILY SC 06/12/24 10:00 06/15/24 10:26 40 MG Vancomycin HCl 0 ml @ 0 mls/hr UD IV 06/12/24 08:15 Cancel Budesonide 0.5 mg BID NEB 06/12/24 10:00 06/15/24 05:48 0.5 MG Hydrocortisone Sodium Succinate 50 mg Q12HR IV 06/12/24 10:00 06/15/24 10:22 50 MG Acetaminophen 650 mg Q6HP PRN GT 06/12/24 14:30 06/13/24 20:54 650 MG Enteral Nutritional Formula 1,000 ml 30ML/HR GT 06/13/24 09:00 06/15/24 16:32 1,000 ML Dexmedetomidine HCl 400 mcg/ Dextrose 100 ml @ 3.86 mls/hr Q24H IV 06/14/24 19:15 Vancomycin HCl 250 ml @ 250 mls/hr Q18H IV 06/15/24 14:00 06/15/24 14:15 250 MLS/HR Laboratory Results Laboratory Tests 06/15/24 05:48 Chemistry Test 06/15/24 05:48 Calcium Level 8.7 mg/dL (8.7-10.4) Magnesium Level 2.1 mg/dL (1.6-2.6) Urinalysis Test 06/11/24 20:30 Urine Color Light-yellow (Yellow) Urine Clarity Turbid (Clear) H Urine pH 6.5 (5.0-9.0) Urine Specific [place] 1.025 (1.001-1.035) Urine Protein Trace (Negative) H Urine Ketones Negative (Negative) Urine Blood 1+ /uL (Negative) H Urine Nitrite Negative (Negative) Urine Bilirubin Negative (Negative) Urine Urobilinogen Normal mg/dL (Negative) Urine Leukocyte Esterase 2+ /uL (Negative) Urine RBC 7 /hpf (0 - 4) Urine WBC 11 /hpf (0 - 5) Urine Squamous Epithelial Cells Few /hpf (<5) Urine Bacteria Many /hpf (None Seen) H Urine Glucose Normal mg/dL (Normal) Blood Gas Results Test 06/15/24 06:13 Arterial Blood pH 7.408 (7.350-7.450) FiO2 % 30.0 Microbiology Microbiology Date/Time Source Procedure Growth Status 06/11/24 21:50 Trachea Gram Stain - Final Complete 06/11/24 21:50 Respiratory Culture - Final Streptococcus Group A Complete 06/11/24 20:30 Voided Urine Urine Culture - Final Complete 06/11/24 16:40 Blood Blood Culture - Preliminary NO GROWTH AFTER 72 HOURS OF INCUBATION. Resulted Assessment/Plan Assessment/Plan Acute respiratory failure Bilateral multifocal pneumonia Sepsis and septic encephalopathy UTI COPD Hypertension Non-STEMI Hypernatremia Hypokalemia Mild left hydronephrosis Possibly left kidney lymphocele or lymphangioma Diverticulosis Plan: IV fluids with half-normal saline and 40 potassium. Repeat x-ray. Repeat labs. Keep off sedation for now and CPAP when more awake. Sputum is showing Streptococcus a. We will repeat blood cultures. Further plan per orders. Total critical care time 40 minutes Plan discussed with: Other (Nursing) My Orders Orders - RAIMUNDO BISWAS MD Procedure Category Date Status Time Basic Metabolic Panel LAB 06/15/24 Verified 17:27 Comprehensive LAB 06/16/24 Verified Metabolic Panel 06:00 Complete Blood Count LAB 06/16/24 Verified 06:00 Chest Portable XY 06/16/24 Verified 06:00 Abg W/ Co-Ox RT 06/16/24 Verified 06:00 1/2 Ns W Potassium PHA 06/15/24 Verified 40meq 17:30 Troponin-I Hs LAB 06/15/24 Verified 17:29 Date of Service: Jun 15, 2024 Billing Provider: RAIMUNDO BISWAS MD Common Visit Codes: [id number] CARE 30-74 MIN RAIMUNDO BISWAS MD Jun 15, 2024 17:35
[2024-06-15 18:15] LABS: Anion Gap 8 (5-15); Carbon Dioxide 25 mmol/L (20-31)
[2024-06-15 18:20] LABS: BUN/Creatinine Ratio 39.2 (10.0-20.0)
[2024-06-15 18:22] LABS: Blood Urea Nitrogen 29 mg/dL (9-23); Calcium 8.5 mg/dL (8.7-10.4); Chloride 117 mmol/L (98-107); Glucose 112 mg/dL (74-106); Sodium 150 mmol/L (136-145)
--- NOTE | 2024-06-15 22:18 | DVHPN2 ---
Progress Note - Dictate Date Seen: Jun 15, 2024 Medical Necessity Reason Pt with a Central, PICC or Fol: Yes The following are medically ne: Jones Catheter Reason for jones catheter: Strict I&O Subjective Patient seen and examined at bedside. intubated on mechanical ventilator. Overnight events reviewed. vital signs Vital Sign Date Time Temp Pulse Resp B/P (MAP) Pulse Ox O2 Delivery O2 Flow Rate FiO2 06/15/24 21:30 98.6 79 22 140/53 (82) 100 98.6 06/15/24 20:09 30 06/15/24 19:30 Mechanical Ventilator+ Total Intake and Output 06/14/24 06/14/24 06/15/24 15:00 23:00 07:00 Intake Total 90.50 ml 253.75 ml 50 ml Output Total 500 ml 400 ml Balance 90.50 ml -246.25 ml -350 ml medications Current Medications Medications Dose Ordered Sig/Ilan Route Start Time Stop Time Status Last Admin Dose Admin Propofol 100 ml @ 2.316 mls/ hr Q24H IV 06/11/24 21:15 06/11/24 21:40 2.316 MLS/HR Fentanyl Citrate 250 ml @ 2.5 mls/hr Q24H IV 06/11/24 21:15 06/13/24 05:27 15 MLS/HR Morphine Sulfate 2 mg Q30M PRN IV 06/11/24 22:00 Nitroglycerin 0.4 mg Q5MINP PRN SL 06/11/24 22:00 Vancomycin HCl 0 ml @ 0 mls/hr UD IV 06/11/24 22:00 Albuterol 2.5 mg Q6HR NEB 06/12/24 00:00 06/15/24 18:07 2.5 MG Ipratropium [place] 0.5 mg Q6HR NEB 06/12/24 00:00 06/15/24 18:06 0.5 MG Meropenem 50 ml @ 17 mls/hr Q12H IV 06/12/24 12:00 06/15/24 12:02 17 MLS/HR Midazolam HCl 50 ml @ 1 mls/hr Q24H IV 06/12/24 01:15 06/14/24 08:00 8 MLS/HR Norepinephrine Bitartrate 250 ml @ 3.75 mls/hr Q24H IV 06/12/24 01:15 06/14/24 00:05 11.25 MLS/HR Vasopressin 20 units/Sodium Chloride 100 ml @ 9 mls/hr Q11H7M IV 06/12/24 01:45 06/12/24 04:00 9 MLS/HR Pantoprazole Sodium 40 mg DAILY IV 06/12/24 10:00 06/15/24 10:26 40 MG Enoxaparin Sodium 40 mg DAILY SC 06/12/24 10:00 06/15/24 10:26 40 MG Vancomycin HCl 0 ml @ 0 mls/hr UD IV 06/12/24 08:15 Cancel Budesonide 0.5 mg BID NEB 06/12/24 10:00 06/15/24 18:07 0.5 MG Hydrocortisone Sodium Succinate 50 mg Q12HR IV 06/12/24 10:00 06/15/24 22:03 50 MG Acetaminophen 650 mg Q6HP PRN GT 06/12/24 14:30 06/13/24 20:54 650 MG Enteral Nutritional Formula 1,000 ml 30ML/HR GT 06/13/24 09:00 06/15/24 16:32 1,000 ML Dexmedetomidine HCl 400 mcg/ Dextrose 100 ml @ 3.86 mls/hr Q24H IV 06/14/24 19:15 Vancomycin HCl 250 ml @ 250 mls/hr Q18H IV 06/15/24 14:00 06/15/24 14:15 250 MLS/HR Potassium Chloride 40 meq/ Sodium Chloride 1,020 ml @ 75 mls/hr [id number] IV 06/15/24 17:30 06/15/24 17:30 75 MLS/HR objective Gen.: Patient lying in bed in medical ICU. Intubated on mechanical ventilator. Head: Normocephalic, atraumatic. Eyes: PERRLA. Ears: Normal external anatomy. Throat: Endotracheal tube and orogastric tube in place. Neck: Supple, trachea midline. Chest: Transmitted breath sounds bilaterally. Decreased air entry bilaterally. No wheezing. Bibasilar crackles. Cardiovascular: Positive S1, positive S2. Regular rate and rhythm. Abdomen: Positive bowel sounds in all 4 quadrants. Soft, nontender, nondistended. : Jones in place. Normal external genitalia. Rectal: Deferred. Skin: Warm, dry. Intact. Extremities: 2+ radial pulses bilaterally. No lower extremity edema. Neuro: Off sedation. laboratory and microbiology Laboratory Tests 06/15/24 17:43 06/15/24 05:48 Test 06/15/24 17:43 Range/Units Serum Glucose 112 H 74-106 mg/dL Assessment/Plan Impression: Acute hypoxic respiratory failure On mechanical ventilator Metabolic encephalopathy Sepsis with shock Pneumonia COPD Hypertension NSTEMI type 2 secondary to sepsis Events: Remains on vent support On AC mode; RR 22, VT 450, PEEP 5, FiO2 30% Off sedation Remains hemodynamically stable. Off levo and vasopressin. On IV fluids with half NS Continue tube feeds ABG reviewed, compensated. Plan for CPAP in AM. CPAP with PS 8, PEEP of 5. OK to increase PS to max 20 cmH2O to achieve tidal volume 400-450 mL. Okay to initiate Precedex if necessary for agitation. Labs and imaging reviewed. Rest of plan as noted below. Plan: s/p intubation on mechanical ventilator. CXR image and report reviewed. Devices in place. Pulmonary vascular congestion. Small left pleural effusion. No pneumothorax. ABG reviewed, compensated. On AC mode; RR 22, VT 450, PEEP 5, FiO2 30% Titrate FIO2 to keep O2 saturation above 90%. VAP bundle. Daily ABG and CXR while intubated Off sedation Continue bronchodilators. Continue antibiotics. IV steroids Pressors if necessary for hemodynamic support Titrate to keep mean arterial pressure greater than 65 mmHg. Monitor renal function Monitor electrolytes. Supplement as necessary. Monitor ins and outs. Maintain euvolemia. GI prophylaxis. DVT prophylaxis. Prognosis: Poor given patient's multiple co-morbidities. Condition: Critical Rest of plan per hospitalist and other consultants. A total of 35 minutes of critical care time was spent reviewing the patient record, examining the patient, making a diagnostic and therapeutic plan, discussing this plan with the medical personnel, following up on diagnostic studies and following the patient for clinical stability excluding any and all procedures. At least 50% of this time was spent in direct, [id number] contact. Thank you, Dr. El, for allowing me to participate in this patient's care. Further recommendations will depend on the patient's clinical course. Please do not hesitate to contact me if you have any questions or concerns. This medical document was created using an electronic medical record system with [employer] system. Although these documentations are being carefully reviewed, there may still be some phonetic and typographical changes. The errors are purely typographical, due to imperfection on the software program, and do not reflect any compromise in the patient's medical care. Plan discussed with: Other (RN Lex, RT, MD) Critical Care Time(min): 35 ZENAIDA SORIANO MD Jun 15, 2024 22:18
[2024-06-16] VITALS (87 sets, daily range): BP systolic 81–198; BP diastolic 41–136; PULSE 49–130; RESP 13–31; TEMP 97.6–99; O2SAT 80–100
[2024-06-16] MEDS: ONDANSETRON HCL 4 MG/2 ML VIAL IV PRN (03:24)
--- NOTE | 2024-06-16 06:15 | DVH ---
CHEST RADIOGRAPH Indication: fu Technique: Single frontal view of the chest was obtained COMPARISON: XY CHEST PORTABLE on DOS: 06/15/24, XY CHEST PORTABLE on DOS: 06/13/24, XY CHEST XRAY 1 VIEW on DOS: 06/12/24, XY CHEST XRAY 1 VIEW on DOS: 06/11/24, XY CHEST XRAY 1 VIEW on DOS: 06/11/24 FINDINGS: Lines and Tubes: Endotracheal tube, enteric catheter and right central venous catheter in satisfactor y position. Lungs: Diffuse congestion, [id number]. Pleura: No effusion. No pneumothorax. Cardiomediastinal contours: Unremarkable Bones: Unremarkable IMPRESSION: Lines and tubes in satisfactory position. No significant interval change.
--- NOTE | 2024-06-16 08:48 | DVHPN2 ---
Subjective On the ventilator. Reviewed: Care Plan, H&P, Labs, Medications, Previous Orders, Radiology, Other ([employer]) Changes from previous H/P or p: No Changes General: Per HPI Objective Vitals Vital Signs Date Time Temp Pulse Resp B/P (MAP) Pulse Ox O2 Delivery O2 Flow Rate FiO2 06/16/24 08:12 56 22 157/56 (89) 100 30 06/16/24 04:30 97.6 97.6 06/16/24 01:15 Mechanical Ventilator+ Intake/Output Intake and Output 06/16/24 07:00 Intake Total 1681.0 ml Output Total 875 ml Balance 806.0 ml Intake Oral 20 ml IV Total 1611.0 ml Tube Feeding 50 ml Output Urine Total 875 ml General Appearance: Other (On the ventilator. Off sedation but not waking up yet) HEENT: Atraumatic, PERRLA Lungs: Other (Few crackles bilateral lungs with good air entry) Cardiovascular: Regular rate Abdomen: Soft, No tenderness Extremities: Other (Edema 1+ bilateral lower extremities and upper extremities) Neuro: Other (Unable to assess) Skin: Dry, Intact Psych/Mental Status: Other (Unable to assess) Medications Current Medications Medications Dose Ordered Sig/Ilan Route Start Time Stop Time Status Last Admin Dose Admin Propofol 100 ml @ 2.316 mls/ hr Q24H IV 06/11/24 21:15 06/11/24 21:40 2.316 MLS/HR Fentanyl Citrate 250 ml @ 2.5 mls/hr Q24H IV 06/11/24 21:15 06/13/24 05:27 15 MLS/HR Morphine Sulfate 2 mg Q30M PRN IV 06/11/24 22:00 Nitroglycerin 0.4 mg Q5MINP PRN SL 06/11/24 22:00 Vancomycin HCl 0 ml @ 0 mls/hr UD IV 06/11/24 22:00 Albuterol 2.5 mg Q6HR NEB 06/12/24 00:00 06/16/24 05:54 2.5 MG Ipratropium [place] 0.5 mg Q6HR NEB 06/12/24 00:00 06/16/24 05:54 0.5 MG Meropenem 50 ml @ 17 mls/hr Q12H IV 06/12/24 12:00 06/15/24 23:35 17 MLS/HR Midazolam HCl 50 ml @ 1 mls/hr Q24H IV 06/12/24 01:15 06/14/24 08:00 8 MLS/HR Norepinephrine Bitartrate 250 ml @ 3.75 mls/hr Q24H IV 06/12/24 01:15 06/16/24 06:09 3.75 MLS/HR Vasopressin 20 units/Sodium Chloride 100 ml @ 9 mls/hr Q11H7M IV 06/12/24 01:45 06/12/24 04:00 9 MLS/HR Pantoprazole Sodium 40 mg DAILY IV 06/12/24 10:00 06/15/24 10:26 40 MG Enoxaparin Sodium 40 mg DAILY SC 06/12/24 10:00 06/15/24 10:26 40 MG Vancomycin HCl 0 ml @ 0 mls/hr UD IV 06/12/24 08:15 Cancel Budesonide 0.5 mg BID NEB 06/12/24 10:00 06/16/24 05:54 0.5 MG Hydrocortisone Sodium Succinate 50 mg Q12HR IV 06/12/24 10:00 06/15/24 22:03 50 MG Acetaminophen 650 mg Q6HP PRN GT 06/12/24 14:30 06/13/24 20:54 650 MG Enteral Nutritional Formula 1,000 ml 30ML/HR GT 06/13/24 09:00 06/15/24 16:32 1,000 ML Dexmedetomidine HCl 400 mcg/ Dextrose 100 ml @ 3.86 mls/hr Q24H IV 06/14/24 19:15 06/16/24 03:20 3.86 MLS/HR Vancomycin HCl 250 ml @ 250 mls/hr Q18H IV 06/15/24 14:00 06/15/24 14:15 250 MLS/HR Potassium Chloride 40 meq/ Sodium Chloride 1,020 ml @ 75 mls/hr [id number] IV 06/15/24 17:30 06/15/24 17:30 75 MLS/HR Ondansetron HCl 4 mg Q4HPRN PRN IV 06/16/24 03:30 06/16/24 03:24 4 MG Laboratory Results Laboratory Tests 06/15/24 05:48 06/15/24 17:43 Chemistry Test 06/15/24 17:43 Calcium Level 8.5 mg/dL (8.7-10.4) L Urinalysis Test 06/11/24 20:30 Urine Color Light-yellow (Yellow) Urine Clarity Turbid (Clear) H Urine pH 6.5 (5.0-9.0) Urine Specific [place] 1.025 (1.001-1.035) Urine Protein Trace (Negative) H Urine Ketones Negative (Negative) Urine Blood 1+ /uL (Negative) H Urine Nitrite Negative (Negative) Urine Bilirubin Negative (Negative) Urine Urobilinogen Normal mg/dL (Negative) Urine Leukocyte Esterase 2+ /uL (Negative) Urine RBC 7 /hpf (0 - 4) Urine WBC 11 /hpf (0 - 5) Urine Squamous Epithelial Cells Few /hpf (<5) Urine Bacteria Many /hpf (None Seen) H Urine Glucose Normal mg/dL (Normal) Microbiology Microbiology Date/Time Source Procedure Growth Status 06/11/24 21:50 Trachea Gram Stain - Final Complete 06/11/24 21:50 Respiratory Culture - Final Streptococcus Group A Complete 06/11/24 20:30 Voided Urine Urine Culture - Final Complete 06/11/24 16:40 Blood Blood Culture - Preliminary NO GROWTH AFTER 72 HOURS OF INCUBATION. Resulted Assessment/Plan Assessment/Plan Acute respiratory failure Bilateral multifocal pneumonia Sepsis and septic encephalopathy UTI COPD Hypertension Non-STEMI Hypernatremia Hypokalemia Mild left hydronephrosis Possibly left kidney lymphocele or lymphangioma Diverticulosis Plan: Continue ventilator support for now. Try CPAP again. Check labs. Monitor vital signs and oxygenation. Monitor electrolytes. Antibiotics. Further plan per orders. Total critical care time 35 minutes Plan discussed with: Other (Nursing) My Orders Orders - RAIMUNDO BISWAS MD Procedure Category Date Status Time Comprehensive LAB 06/16/24 Logged Metabolic Panel 06:00 Complete Blood Count LAB 06/16/24 Logged 06:00 Chest Portable XY 06/16/24 Resulted 06:00 Abg W/ Co-Ox RT 06/16/24 Logged 06:00 Sod Chl 0.45% PHA 06/15/24 In Process (Sodi... W/Potassium 17:30 Date of Service: Jun 16, 2024 Billing Provider: RAIMUNDO BISWAS MD Common Visit Codes: [id number] CARE 30-74 MIN RAIMUNDO BISWAS MD Jun 16, 2024 08:47
[2024-06-16 08:52] LABS: Base Excess -2.8 mmol/L (-2.0-3.0)
[2024-06-16 10:49] LABS: Basophils # (auto) 0 10 ^3/uL (0-0.2); Basophils % (auto) 0.1 % (0.0-2.0); Eosinophils # (auto) 0 10 ^3/uL (0-0.8); Eosinophils % (auto) 0.1 % (0.0-7.0); Hemoglobin 10.4 g/dL (12.2-16.2); Lymphocytes # (auto) 0.6 10 ^3/uL (0.4-5.4); Lymphocytes % (auto) 5.6 % (10.0-50.0); Mean Corpuscular Hemoglobin 29.9 pg (28.0-32.0); Mean Corpuscular Hgb Conc. 33.7 g/dL (32.0-36.0); Mean Corpuscular Volume 88.7 fL (80.0-100.0); Monocytes % (auto) 9.5 % (0.0-12.0); Neutrophils # (auto) 8.9 10 ^3/uL (1.6-8.6); Neutrophils % (auto) 84.7 % (37.0-80.0); Platelet Count (auto) 251 10^3/uL (140-450); Red Blood Cells 3.49 10^6/uL (4.0-5.20); Red Cell Distribution Width 15.3 % (11.8-14.3); White Blood Cell 10.4 10^3/uL (4.4-10.8)
[2024-06-16 11:08] LABS: Alanine Aminotransferase 11 U/L (7-40); Alkaline Phosphatase 65 U/L (46-116); Anion Gap 3 (5-15); BUN/Creatinine Ratio 47.8 (10.0-20.0); Carbon Dioxide 28 mmol/L (20-31); Potassium 4.1 mmol/L (3.5-5.1)
[2024-06-16 11:09] LABS: Bilirubin, Total 0.3 mg/dL (0.2-1.0)
[2024-06-16 11:10] LABS: Albumin 3.1 g/dL (3.2-4.8); Aspartate Aminotransferase 10 U/L (13-40); Blood Urea Nitrogen 32 mg/dL (9-23); Chloride 118 mmol/L (98-107); Glucose 135 mg/dL (74-106); Sodium 149 mmol/L (136-145); Total Protein 5.3 g/dL (5.7-8.2)
[2024-06-16] MEDS: ONDANSETRON HCL 4 MG/2 ML VIAL ONE (20:36)
--- NOTE | 2024-06-16 23:58 | DVHPN2 ---
Progress Note - Dictate Date Seen: Jun 16, 2024 Medical Necessity Reason Pt with a Central, PICC or Fol: Yes The following are medically ne: Jones Catheter Reason for jones catheter: Strict I&O Subjective Patient seen and examined at bedside. intubated on mechanical ventilator. Overnight events reviewed. vital signs Vital Sign Date Time Temp Pulse Resp B/P (MAP) Pulse Ox O2 Delivery O2 Flow Rate FiO2 06/16/24 23:49 62 22 162/60 (94) 97 30 06/16/24 19:30 Mechanical Ventilator+ 06/16/24 19:30 99.1 99.1 Total Intake and Output 06/15/24 06/15/24 06/16/24 15:00 23:00 07:00 Intake Total 501 ml 520.0 ml 660.0 ml Output Total 375 ml 500 ml Balance 501 ml 145.0 ml 160.0 ml medications Current Medications Medications Dose Ordered Sig/Ilan Route Start Time Stop Time Status Last Admin Dose Admin Propofol 100 ml @ 2.316 mls/ hr Q24H IV 06/11/24 21:15 06/11/24 21:40 2.316 MLS/HR Fentanyl Citrate 250 ml @ 2.5 mls/hr Q24H IV 06/11/24 21:15 06/13/24 05:27 15 MLS/HR Morphine Sulfate 2 mg Q30M PRN IV 06/11/24 22:00 Nitroglycerin 0.4 mg Q5MINP PRN SL 06/11/24 22:00 Vancomycin HCl 0 ml @ 0 mls/hr UD IV 06/11/24 22:00 Albuterol 2.5 mg Q6HR NEB 06/12/24 00:00 06/16/24 18:45 2.5 MG Ipratropium [place] 0.5 mg Q6HR NEB 06/12/24 00:00 06/16/24 18:45 0.5 MG Meropenem 50 ml @ 17 mls/hr Q12H IV 06/12/24 12:00 06/16/24 23:55 17 MLS/HR Midazolam HCl 50 ml @ 1 mls/hr Q24H IV 06/12/24 01:15 06/14/24 08:00 8 MLS/HR Norepinephrine Bitartrate 250 ml @ 3.75 mls/hr Q24H IV 06/12/24 01:15 06/16/24 06:09 3.75 MLS/HR Vasopressin 20 units/Sodium Chloride 100 ml @ 9 mls/hr Q11H7M IV 06/12/24 01:45 06/12/24 04:00 9 MLS/HR Pantoprazole Sodium 40 mg DAILY IV 06/12/24 10:00 06/16/24 09:09 40 MG Enoxaparin Sodium 40 mg DAILY SC 06/12/24 10:00 06/16/24 09:09 40 MG Vancomycin HCl 0 ml @ 0 mls/hr UD IV 06/12/24 08:15 Cancel Budesonide 0.5 mg BID NEB 06/12/24 10:00 06/16/24 18:45 0.5 MG Hydrocortisone Sodium Succinate 50 mg Q12HR IV 06/12/24 10:00 06/16/24 22:27 50 MG Acetaminophen 650 mg Q6HP PRN GT 06/12/24 14:30 06/13/24 20:54 650 MG Enteral Nutritional Formula 1,000 ml 30ML/HR GT 06/13/24 09:00 06/16/24 17:23 1,000 ML Dexmedetomidine HCl 400 mcg/ Dextrose 100 ml @ 3.86 mls/hr Q24H IV 06/14/24 19:15 06/16/24 03:20 3.86 MLS/HR Vancomycin HCl 250 ml @ 250 mls/hr Q18H IV 06/15/24 14:00 06/16/24 09:10 250 MLS/HR Potassium Chloride 40 meq/ Sodium Chloride 1,020 ml @ 75 mls/hr [id number] IV 06/15/24 17:30 06/16/24 20:57 75 MLS/HR Ondansetron HCl 4 mg Q4HPRN PRN IV 06/16/24 03:30 06/16/24 03:24 4 MG objective Gen.: Patient lying in bed in medical ICU. Intubated on mechanical ventilator. Head: Normocephalic, atraumatic. Eyes: PERRLA. Ears: Normal external anatomy. Throat: Endotracheal tube and orogastric tube in place. Neck: Supple, trachea midline. Chest: Transmitted breath sounds bilaterally. Decreased air entry bilaterally. No wheezing. Bibasilar crackles. Cardiovascular: Positive S1, positive S2. Regular rate and rhythm. Abdomen: Positive bowel sounds in all 4 quadrants. Soft, nontender, nondistended. : Jones in place. Normal external genitalia. Rectal: Deferred. Skin: Warm, dry. Intact. Extremities: 2+ radial pulses bilaterally. No lower extremity edema. Neuro: Off sedation. laboratory and microbiology Laboratory Tests 06/16/24 10:32 Test 06/16/24 10:32 Range/Units Serum Glucose 135 H 74-106 mg/dL Assessment/Plan Impression: Acute hypoxic respiratory failure On mechanical ventilator Metabolic encephalopathy Sepsis with shock Pneumonia COPD Hypertension NSTEMI type 2 secondary to sepsis Events: Remains on vent support On AC mode; RR 22, VT 450, PEEP 5, FiO2 30% Off sedation On Precedex drip Obtain consent for bronchoscopy with BAL d/t increased ET tube secretions Remains hemodynamically stable. On IV fluids with half NS at 75 ml/hr Continue tube feeds for nutritional support ABG reviewed, compensated. Plan for CPAP in AM. CPAP with PS 8, PEEP of 5. OK to increase PS to max 20 cmH2O to achieve tidal volume 400-450 mL. Okay to initiate Precedex if necessary for agitation. Labs and imaging reviewed. Rest of plan as noted below. Plan: s/p intubation on mechanical ventilator. CXR image and report reviewed. Devices in place. Pulmonary vascular congestion. Small left pleural effusion. No pneumothorax. ABG reviewed, compensated. On AC mode; RR 22, VT 450, PEEP 5, FiO2 30% Titrate FIO2 to keep O2 saturation above 90%. VAP bundle. Daily ABG and CXR while intubated Off sedation Continue bronchodilators. Continue antibiotics. IV steroids Pressors if necessary for hemodynamic support Titrate to keep mean arterial pressure greater than 65 mmHg. Monitor renal function Monitor electrolytes. Supplement as necessary. Monitor ins and outs. Maintain euvolemia. GI prophylaxis. DVT prophylaxis. Prognosis: Poor given patient's multiple co-morbidities. Condition: Critical Rest of plan per hospitalist and other consultants. A total of 35 minutes of critical care time was spent reviewing the patient record, examining the patient, making a diagnostic and therapeutic plan, discussing this plan with the medical personnel, following up on diagnostic studies and following the patient for clinical stability excluding any and all procedures. At least 50% of this time was spent in direct, [id number] contact. Thank you, Dr. El, for allowing me to participate in this patient's care. Further recommendations will depend on the patient's clinical course. Please do not hesitate to contact me if you have any questions or concerns. This medical document was created using an electronic medical record system with [employer] dictation system. Although these documentations are being carefully reviewed, there may still be some phonetic and typographical changes. The errors are purely typographical, due to imperfection on the software program, and do not reflect any compromise in the patient's medical care. Dietary Evaluation Review Comments: 1. Consider increase TF jevity 1.2 @50ml/hr to provide 1440kcal, 67g pro, 968ml FW to meet needs when appropriate 2. Consider adjust insulin regime 3. Consider increase water flush for high Na Expected Outcomes/Goals: 1. Pt will meet >75% of estimated needs within 2-3 days Plan discussed with: Other (SONNY Martell) Critical Care Time(min): 35 ZENAIDA SORIANO MD Jun 16, 2024 23:58
[2024-06-17] VITALS (31 sets, daily range): BP systolic 109–171; BP diastolic 38–95; PULSE 58–110; RESP 21–35; TEMP 98.1–99.1; O2SAT 95–100
--- NOTE | 2024-06-17 05:43 | DVH ---
CHEST RADIOGRAPH Indication: fu Technique: Single frontal view of the chest was obtained COMPARISON: XY CHEST PORTABLE on DOS: 06/16/24, XY CHEST PORTABLE on DOS: 06/15/24, XY CHEST PORTABLE on DOS: 06/13/24, XY CHEST XRAY 1 VIEW on DOS: 06/12/24, XY CHEST XRAY 1 VIEW on DOS: 06/11/24, XY CHEST POR TABLE on DOS: 06/16/24 FINDINGS: Lines and Tubes: Endotracheal tube, enteric catheter and right central venous catheter in satisfactor y position. Lungs: Diffuse congestion, [id number]. Pleura: No effusion. No pneumothorax. Cardiomediastinal contours: Unremarkable Bones: Unremarkable IMPRESSION: Lines and tubes in satisfactory position. No significant interval change.
[2024-06-17] MEDS: hydrALAZINE HCL 20 MG/ML VL IV ONE (06:51)
[2024-06-17] MEDS ORDERED: hydrALAZINE HCL 20 MG/ML VL IV PRN (07:00)
[2024-06-17 08:39] LABS: Hematocrit 32.4 % (36.0-46.0); Hemoglobin 10.7 g/dL (12.2-16.2); Mean Corpuscular Hemoglobin 29.1 pg (28.0-32.0); Mean Corpuscular Volume 88.1 fL (80.0-100.0); Platelet Count (auto) 259 10^3/uL (140-450); Red Blood Cells 3.68 10^6/uL (4.0-5.20); Red Cell Distribution Width 15.3 % (11.8-14.3); White Blood Cell 10.2 10^3/uL (4.4-10.8)
[2024-06-17 08:42] LABS: Band Neutrophils % (manual) 0; Basophils % (manual) 0 (0.0-2.0); Blast Cells 0; Eosinophils % (manual) 0 (0-7); Metamyelocytes % 0; Myelocytes % 0; Promyelocytes % 0; Reactive Lymphocytes 0
[2024-06-17 08:55] LABS: Alanine Aminotransferase 14 U/L (7-40); Alkaline Phosphatase 62 U/L (46-116); Anion Gap 6 (5-15); Aspartate Aminotransferase 14 U/L (13-40); BUN/Creatinine Ratio 45.3 (10.0-20.0); Bilirubin, Total 0.4 mg/dL (0.2-1.0); Calcium 9.2 mg/dL (8.7-10.4); Carbon Dioxide 26 mmol/L (20-31); Potassium 3.9 mmol/L (3.5-5.1)
[2024-06-17 09:07] LABS: Albumin 3.2 g/dL (3.2-4.8); Blood Urea Nitrogen 24 mg/dL (9-23); Chloride 114 mmol/L (98-107); Glucose 155 mg/dL (74-106); Sodium 146 mmol/L (136-145); Total Protein 5.3 g/dL (5.7-8.2)
--- NOTE | 2024-06-17 09:28 | DVHPN2 ---
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) Changes from previous H/P or p: No Changes General: Per HPI Objective Vitals Vital Signs Date Time Temp Pulse Resp B/P (MAP) Pulse Ox O2 Delivery O2 Flow Rate FiO2 06/17/24 08:10 80 22 141/65 (90) 98 30 06/17/24 05:15 97.2 97.2 06/16/24 19:30 Mechanical Ventilator+ Intake/Output Intake and Output 06/17/24 06:59 Intake Total 2277.580 ml Output Total 1400 ml Balance 877.580 ml IV Total 2187.580 ml Tube Feeding 90 ml Output Urine Total 1400 ml # Bowel Movements 1 General Appearance: mild distress, Other (Intubated, encephalopathic) HEENT: Atraumatic, PERRLA Lungs: Other Cardiovascular: Regular rate Abdomen: Soft, No tenderness Genitourinary: No Apparent Abnormalities (White) Extremities: Other Neuro: Other Skin: Dry, Intact Psych/Mental Status: Other Medications Current Medications Medications Dose Ordered Sig/Ilan Route Start Time Stop Time Status Last Admin Dose Admin Propofol 100 ml @ 2.316 mls/ hr Q24H IV 06/11/24 21:15 06/11/24 21:40 2.316 MLS/HR Fentanyl Citrate 250 ml @ 2.5 mls/hr Q24H IV 06/11/24 21:15 06/13/24 05:27 15 MLS/HR Morphine Sulfate 2 mg Q30M PRN IV 06/11/24 22:00 Nitroglycerin 0.4 mg Q5MINP PRN SL 06/11/24 22:00 Albuterol 2.5 mg Q6HR NEB 06/12/24 00:00 06/17/24 06:26 2.5 MG Ipratropium [place] 0.5 mg Q6HR NEB 06/12/24 00:00 06/17/24 06:26 0.5 MG Midazolam HCl 50 ml @ 1 mls/hr Q24H IV 06/12/24 01:15 06/14/24 08:00 8 MLS/HR Norepinephrine Bitartrate 250 ml @ 3.75 mls/hr Q24H IV 06/12/24 01:15 06/16/24 06:09 3.75 MLS/HR Vasopressin 20 units/Sodium Chloride 100 ml @ 9 mls/hr Q11H7M IV 06/12/24 01:45 06/12/24 04:00 9 MLS/HR Pantoprazole Sodium 40 mg DAILY IV 06/12/24 10:00 06/16/24 09:09 40 MG Enoxaparin Sodium 40 mg DAILY SC 06/12/24 10:00 06/16/24 09:09 40 MG Vancomycin HCl 0 ml @ 0 mls/hr UD IV 06/12/24 08:15 Cancel Budesonide 0.5 mg BID NEB 06/12/24 10:00 06/16/24 18:45 0.5 MG Hydrocortisone Sodium Succinate 50 mg Q12HR IV 06/12/24 10:00 06/16/24 22:27 50 MG Acetaminophen 650 mg Q6HP PRN GT 06/12/24 14:30 06/13/24 20:54 650 MG Enteral Nutritional Formula 1,000 ml 30ML/HR GT 06/13/24 09:00 06/16/24 17:23 1,000 ML Dexmedetomidine HCl 400 mcg/ Dextrose 100 ml @ 3.86 mls/hr Q24H IV 06/14/24 19:15 06/16/24 03:20 3.86 MLS/HR Potassium Chloride 40 meq/ Sodium Chloride 1,020 ml @ 75 mls/hr [id number] IV 06/15/24 17:30 06/16/24 20:57 75 MLS/HR Ondansetron HCl 4 mg Q4HPRN PRN IV 06/16/24 03:30 06/16/24 03:24 4 MG Hydralazine HCl 10 mg Q6HPRN PRN IV 06/17/24 07:00 Ampicillin Sodium 2 gm/Sodium Chloride 100 ml @ 100 mls/hr Q6HR IV 06/17/24 12:00 UNV Hydralazine HCl 10 mg Q6HP PRN IV 06/17/24 08:45 Laboratory Results Laboratory Tests 06/17/24 08:03 Chemistry Test 06/16/24 10:32 06/17/24 08:03 Albumin 3.1 g/dL (3.2-4.8) L 3.2 g/dL (3.2-4.8) Calcium Level 9.0 mg/dL (8.7-10.4) 9.2 mg/dL (8.7-10.4) Total Protein 5.3 g/dL (5.7-8.2) L 5.3 g/dL (5.7-8.2) L LFT Test 06/16/24 10:32 06/17/24 08:03 Alanine Aminotransferase (ALT) 11 U/L (7-40) 14 U/L (7-40) Alkaline Phosphatase 65 U/L (46-116) 62 U/L (46-116) Aspartate Amino Transferase (AST) 10 U/L (13-40) L 14 U/L (13-40) Total Bilirubin 0.3 mg/dL (0.2-1.0) 0.4 mg/dL (0.2-1.0) Urinalysis Test 06/11/24 20:30 Urine Color Light-yellow (Yellow) Urine Clarity Turbid (Clear) H Urine pH 6.5 (5.0-9.0) Urine Specific [place] 1.025 (1.001-1.035) Urine Protein Trace (Negative) H Urine Ketones Negative (Negative) Urine Blood 1+ /uL (Negative) H Urine Nitrite Negative (Negative) Urine Bilirubin Negative (Negative) Urine Urobilinogen Normal mg/dL (Negative) Urine Leukocyte Esterase 2+ /uL (Negative) Urine RBC 7 /hpf (0 - 4) Urine WBC 11 /hpf (0 - 5) Urine Squamous Epithelial Cells Few /hpf (<5) Urine Bacteria Many /hpf (None Seen) H Urine Glucose Normal mg/dL (Normal) Blood Gas Results Test 06/17/24 06:40 Arterial Blood pH 7.448 (7.350-7.450) FiO2 % 30.0 Microbiology Microbiology Date/Time Source Procedure Growth Status 06/11/24 21:50 Trachea Gram Stain - Final Complete 06/11/24 21:50 Respiratory Culture - Final Streptococcus Group A Complete 06/11/24 20:30 Voided Urine Urine Culture - Final Complete 06/11/24 16:40 Blood Blood Culture - Final NO GROWTH AFTER 5 DAYS OF INCUBATION. Complete Labs and/or images reviewed: Labs reviewed by me, Image(s) reviewed by me Assessment/Plan Assessment/Plan Impression: -metabolic encephalopathy -sepsis with shock -community-acquired pneumonia, probable Gram-positive/Gram-negative etiology. Possible aspiration etiology -history of COPD -primary hypertension -NSTEMI type 2 secondary to sepsis -acute hypoxic respiratory failure with mechanical ventilation Plan: Events: Off pressors. CPAP today. WBC normal. Sputum with Strep A -PRN antihypertensives -Deescalate abx: change to Ampicillin -continue bronchodilators and Pulmicort -hydrocortisone IV 50 mg b.i.d. -PUD, DVT prophylaxis -discontinue odium bicarbonate drip -continue current ventilator settings, wean sedation and proceed with CPAP trial once patient was appropriate -repeat labs, chest x-ray, ABG in a.m. Critical care time spent with patient discussing and formulating plan of care: 40 minutes. This does not include time spent performing procedures. This medical document was created using an electronic medical record system with [employer] dictation system. Although this document has been carefully reviewed, there may still be some phonetic and typographical errors. These areas are purely typographical due to imperfections of the software programs, and do not reflect any compromise in the patient's medical care. Plan discussed with: Patient, Other (RN) My Orders Orders - VIRGEN MANZO NP Procedure Category Date Status Time Ampicillin Sod 2gm Inj PHA 06/17/24 Logged 12:00 Hydralazine Injection PHA 06/17/24 Logged (Apresoline Inject 08:45 Basic Metabolic Panel LAB 06/18/24 Verified 04:00 Complete Blood Count LAB 06/18/24 Verified 04:00 Chest Xray 1 View XY 06/18/24 Verified 04:00 Date of Service: Jun 17, 2024 Billing Provider: VIRGEN MANZO NP Common Visit Codes: [id number] CARE 30-74 MIN VIRGEN MANZO NP Jun 17, 2024 09:28
[2024-06-17 09:37] LABS: Lymphocytes % (manual) 10 (10.0-50.0); Monocytes % (manual) 1 (0-12)
[2024-06-17 09:38] LABS: Platelet Estimate Adequate; RBC Morphology Normal
[2024-06-17] MEDS: AMPICILLIN SOD 2GM INJ 2 GM in SODIUM CHL 0.9% 100 ML IV SCH (12:12)
[2024-06-17] MEDS: BUDESONIDE (INHALATION) 0.5 MG/2 ML NEB ONE (12:40)
[2024-06-17] MEDS ORDERED: ACETAMINOPHEN 650 mg PER 20.3 mL UD GT PRN (12:45)
[2024-06-17] MEDS: fentaNYL Drip 2500mCg/250mlNS 250 ML IV SCH (13:00)
[2024-06-17] MEDS: PANTOPRAZOLE 40 MG/10 ML VIAL INJ IV ONE (13:19)
[2024-06-17] MEDS: POTASSIUM CHLORIDE 40 MEQ in SOD CHL 0.45% 1,000 ML IV SCH (13:20)
[2024-06-17] MEDS: ENOXAPARIN SOD 40 MG/0.4 ML SYRINGE SC ONE (13:20)
[2024-06-17] MEDS: HYDROCORTISONE SOD SUCC 100 MG/2ML INJ VIAL IV ONE (13:20)
[2024-06-17] MEDS: MIDAZOLAM DRIP 50 mg/50mL 50 ML IV ONE (15:50)
[2024-06-17] MEDS: ALBUTEROL SULF 2.5 MG/0.5ML(0.5%) NEB SOLN NEB SCH (18:21)
--- NOTE | 2024-06-17 20:38 | DVHNC2 ---
Procedure - Bronchoscopy procedure note: Indications: bilateral lower lobe atelectasis, Possible mucous plugging. Medicines: See 3RD PRESSMAN notes. Complications: None Procedure: Patient medications and allergies reviewed. The risks and benefits of the procedure and the sedation options and risk were discussed with the patient's healthcare proxy. All questions were answered and informed consent was obtained. Patient identification and proposed procedure were verified prior to the procedure by the physician, and a nurse, and the respiratory therapist in ICU room. The heart rate, respiratory rate, oxygen saturations, blood pressure, adequacy of pulmonary ventilation, and response to care were monitored throughout the procedure. The physical status of the patient was reassessed after the procedure. After obtaining informed consent, the bronchoscope was introduced through the endotracheal tube and advanced into the trachea bronchial tree of both lungs. The procedure was accomplished without difficulty. The patient tolerated the procedure well. Findings: The trachea is in normal caliber. The alisha is sharp. The tracheobronchial tree of the right lung was examined to at least the first subsegmental level. The bronchial mucosa and anatomy in the right lung are normal. There are no endobronchial lesions. There was copious whitish secretions from right main stem bronchus onward throughout R6-R10. Right middle lobe (RML) Bronchoalveolar lavage (BAL) obtained. RML BAL sent for gram stain and culture. The left upper lobe, lingula, and left lower lobe were examined to at least the first subsegmental level. Bronchial mucosa and anatomy in the left upper lobe and lingula are normal. There were no endobronchial lesions. There was copious whitish secretions from left main stem bronchus onward throughout L6-L10. Mucous plugging removed from L6-L10. There was no active bleeding at the completion of the procedure. Estimated blood loss: Less than 5 mL. Impression: Bilateral lower lobe atelectasis due to mucous plugging Mucous plugging from L6-L10 and R6-R10 RML BAL performed Recommendation: Follow-up RML BAL results. Procedure codes: 68013, bronchoscopy, rigid and flexible, including fluoroscopic guidance, one performed; with bronchial endobronchial broncho-alveolar lavage, single or multiple sites ZENAIDA SORIANO MD Jun 17, 2024 20:38
[2024-06-17] MEDS: HYDROCORTISONE SOD SUCC 100 MG/2ML INJ VIAL IV SCH (22:06)
--- NOTE | 2024-06-17 22:49 | DVHPN2 ---
Progress Note - Dictate Date Seen: Jun 17, 2024 Medical Necessity Reason Pt with a Central, PICC or Fol: Yes The following are medically ne: Jones Catheter Reason for jones catheter: Strict I&O Subjective Patient seen and examined at bedside. intubated on mechanical ventilator. Overnight events reviewed. vital signs Vital Sign Date Time Temp Pulse Resp B/P (MAP) Pulse Ox O2 Delivery O2 Flow Rate FiO2 06/17/24 21:57 105 32 121/46 (71) 97 30 06/17/24 20:00 98.1 208.6 06/17/24 20:00 Mechanical Ventilator+ Total Intake and Output 06/16/24 06/16/24 06/17/24 15:00 23:00 07:00 Intake Total 703.860 ml 657.72 ml 916 ml Output Total 550 ml 850 ml Balance 703.860 ml 107.72 ml 66 ml medications Current Medications Medications Dose Ordered Sig/Ilan Route Start Time Stop Time Status Last Admin Dose Admin Propofol 100 ml @ 2.316 mls/ hr Q24H IV 06/11/24 21:15 06/17/24 21:46 2.316 MLS/HR Morphine Sulfate 2 mg Q30M PRN IV 06/11/24 22:00 Nitroglycerin 0.4 mg Q5MINP PRN SL 06/11/24 22:00 Ipratropium [place] 0.5 mg Q6HR NEB 06/12/24 00:00 06/17/24 18:21 0.5 MG Midazolam HCl 50 ml @ 1 mls/hr Q24H IV 06/12/24 01:15 06/17/24 21:56 8 MLS/HR Pantoprazole Sodium 40 mg DAILY IV 06/12/24 10:00 06/16/24 09:09 40 MG Vancomycin HCl 0 ml @ 0 mls/hr UD IV 06/12/24 08:15 Cancel Enteral Nutritional Formula 1,000 ml 30ML/HR GT 06/13/24 09:00 06/16/24 17:23 1,000 ML Potassium Chloride 40 meq/ Sodium Chloride 1,020 ml @ 75 mls/hr [id number] IV 06/15/24 17:30 06/16/24 20:57 75 MLS/HR Ondansetron HCl 4 mg Q4HPRN PRN IV 06/16/24 03:30 06/16/24 03:24 4 MG Ampicillin Sodium 2 gm/Sodium Chloride 100 ml @ 100 mls/hr Q6HR IV 06/17/24 12:00 06/17/24 21:48 100 MLS/HR Hydralazine HCl 10 mg Q6HP PRN IV 06/17/24 08:45 Potassium Chloride 40 meq/ Sodium Chloride 1,020 ml @ 75 mls/hr [id number] IV 06/17/24 12:30 06/17/24 13:20 75 MLS/HR Acetaminophen 650 mg Q6HP PRN GT 06/17/24 12:45 Albuterol 2.5 mg Q6HR NEB 06/17/24 18:00 06/17/24 18:21 2.5 MG Enoxaparin Sodium 40 mg DAILY SC 06/18/24 10:00 Budesonide 0.5 mg BID NEB 06/17/24 22:00 Dexmedetomidine HCl 400 mcg/ Dextrose 100 ml @ 3.86 mls/hr Q24H IV 06/17/24 13:00 Fentanyl Citrate 250 ml @ 2.5 mls/hr Q24H IV 06/17/24 13:00 Hydrocortisone Sodium Succinate 50 mg Q12HR IV 06/17/24 22:00 06/17/24 22:06 50 MG objective Gen.: Patient lying in bed in medical ICU. Intubated on mechanical ventilator. Head: Normocephalic, atraumatic. Eyes: PERRLA. Ears: Normal external anatomy. Throat: Endotracheal tube and orogastric tube in place. Neck: Supple, trachea midline. Chest: Transmitted breath sounds bilaterally. Decreased air entry bilaterally. No wheezing. Bibasilar crackles. Cardiovascular: Positive S1, positive S2. Regular rate and rhythm. Abdomen: Positive bowel sounds in all 4 quadrants. Soft, nontender, nondistended. : Jones in place. Normal external genitalia. Rectal: Deferred. Skin: Warm, dry. Intact. Extremities: 2+ radial pulses bilaterally. No lower extremity edema. Neuro: Off sedation. laboratory and microbiology Laboratory Tests 06/17/24 08:03 Test 06/17/24 08:03 Range/Units Serum Glucose 155 H 74-106 mg/dL Assessment/Plan Impression: Acute hypoxic respiratory failure On mechanical ventilator Metabolic encephalopathy Sepsis with shock Pneumonia COPD Hypertension NSTEMI type 2 secondary to sepsis Events: Remains on vent support On AC mode; RR 22, VT 450, PEEP 5, FiO2 30% Off sedation S/p bronchoscopy today with RML BAL - copious secretions cleared from RLL/LLL See separate procedure note for details. Remains hemodynamically stable. Continue antibiotics On IV fluids with half NS at 75 ml/hr Continue tube feeds for nutritional support ABG reviewed, compensated. Plan for CPAP in AM. CPAP with PS 8, PEEP of 5. OK to increase PS to max 20 cmH2O to achieve tidal volume 400-450 mL. Okay to initiate Precedex if necessary for agitation. Labs and imaging reviewed. Rest of plan as noted below. Plan: s/p intubation on mechanical ventilator. CXR image and report reviewed. Devices in place. Pulmonary vascular congestion. Small left pleural effusion. No pneumothorax. ABG reviewed, compensated. On AC mode; RR 22, VT 450, PEEP 5, FiO2 30% Titrate FIO2 to keep O2 saturation above 90%. VAP bundle. Daily ABG and CXR while intubated Off sedation Continue bronchodilators. Continue antibiotics. IV steroids Pressors if necessary for hemodynamic support Titrate to keep mean arterial pressure greater than 65 mmHg. Monitor renal function Monitor electrolytes. Supplement as necessary. Monitor ins and outs. Maintain euvolemia. GI prophylaxis. DVT prophylaxis. Prognosis: Poor given patient's multiple co-morbidities. Condition: Critical Rest of plan per hospitalist and other consultants. A total of 35 minutes of critical care time was spent reviewing the patient record, examining the patient, making a diagnostic and therapeutic plan, discussing this plan with the medical personnel, following up on diagnostic studies and following the patient for clinical stability excluding any and all procedures. At least 50% of this time was spent in direct, [id number] contact. Thank you, Dr. El, for allowing me to participate in this patient's care. Further recommendations will depend on the patient's clinical course. Please do not hesitate to contact me if you have any questions or concerns. This medical document was created using an electronic medical record system with [employer] system. Although these documentations are being carefully reviewed, there may still be some phonetic and typographical changes. The errors are purely typographical, due to imperfection on the software program, and do not reflect any compromise in the patient's medical care. Dietary Evaluation Review Comments: 1. Consider increase TF jevity 1.2 @50ml/hr to provide 1440kcal, 67g pro, 968ml FW to meet needs when appropriate 2. Consider adjust insulin regime 3. Consider increase water flush for high Na Expected Outcomes/Goals: 1. Pt will meet >75% of estimated needs within 2-3 days Plan discussed with: Other (RN Jonathan) Critical Care Time(min): 35 ZENAIDA SORIANO MD Jun 17, 2024 22:49
[2024-06-18] VITALS (87 sets, daily range): BP systolic 120–173; BP diastolic 40–98; PULSE 62–111; RESP 13–32; TEMP 98.8–100; O2SAT 93–100
[2024-06-18] MEDS: BUDESONIDE (INHALATION) 0.5 MG/2 ML NEB NEB SCH (00:39)
[2024-06-18 03:40] LABS: Base Excess 1.3 mmol/L (-2.0-3.0)
--- NOTE | 2024-06-18 05:03 | DVH ---
CHEST RADIOGRAPH Indication: pna Technique: Single frontal view of the chest was obtained COMPARISON: XY CHEST PORTABLE on DOS: 06/17/24, XY CHEST PORTABLE on DOS: 06/16/24, XY CHEST PORTABLE on DOS: 06/15/24, XY CHEST PORTABLE on DOS: 06/13/24, XY CHEST XRAY 1 VIEW on DOS: 06/12/24, XY CHEST PORTABLE on DOS: 06/17/24 FINDINGS: Lines and Tubes: Endotracheal tube, enteric catheter and right central venous catheter in satisfactor y position. Lungs: Diffuse congestion, [id number]. Pleura: No effusion. No pneumothorax. Cardiomediastinal contours: Unremarkable Bones: Unremarkable IMPRESSION: Lines and tubes in satisfactory position. No significant interval change.
[2024-06-18 05:53] LABS: Potassium 4.1 mmol/L (3.5-5.1); Sodium 144 mmol/L (136-145)
[2024-06-18 05:54] LABS: Anion Gap 6 (5-15); Carbon Dioxide 28 mmol/L (20-31); Hematocrit 32.6 % (36.0-46.0); Hemoglobin 10.6 g/dL (12.2-16.2); Mean Corpuscular Hemoglobin 28.7 pg (28.0-32.0); Mean Corpuscular Hgb Conc. 32.5 g/dL (32.0-36.0); Mean Corpuscular Volume 88.2 fL (80.0-100.0); Platelet Count (auto) 249 10^3/uL (140-450); Red Cell Distribution Width 15.2 % (11.8-14.3); White Blood Cell 11.1 10^3/uL (4.4-10.8)
[2024-06-18 05:59] LABS: BUN/Creatinine Ratio 37.7 (10.0-20.0); Blood Urea Nitrogen 20 mg/dL (9-23)
[2024-06-18 06:14] LABS: Basophils % (manual) 0 (0.0-2.0); Blast Cells 0; Eosinophils % (manual) 0 (0-7); Metamyelocytes % 0; Monocytes % (manual) 0 (0-12); Myelocytes % 0; Promyelocytes % 0; Reactive Lymphocytes 0
[2024-06-18 06:19] LABS: Chloride 110 mmol/L (98-107); Glucose 126 mg/dL (74-106)
--- NOTE | 2024-06-18 08:36 | DVHPN2 ---
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 ([place] Manager) Changes from previous H/P or p: No Changes General: Per HPI Objective Vitals Vital Signs Date Time Temp Pulse Resp B/P (MAP) Pulse Ox O2 Delivery O2 Flow Rate FiO2 06/18/24 08:00 99.5 88 24 141/61 (87) 211.1 06/18/24 06:30 98 06/18/24 06:13 30 06/18/24 06:00 Mechanical Ventilator+ Intake/Output Intake and Output 06/18/24 07:00 Intake Total 1582.220 ml Output Total 2350 ml Balance -767.780 ml Intake Oral 60 ml IV Total 1402.220 ml Tube Feeding 120 ml Output Urine Total 2350 ml General Appearance: mild distress, Other (Intubated, encephalopathic) HEENT: Atraumatic, PERRLA Lungs: Other Cardiovascular: Regular rate Abdomen: Soft, No tenderness Genitourinary: No Apparent Abnormalities (White) Extremities: Other Neuro: Other Skin: Dry, Intact Psych/Mental Status: Other Medications Current Medications Medications Dose Ordered Sig/Ilan Route Start Time Stop Time Status Last Admin Dose Admin Propofol 100 ml @ 2.316 mls/ hr Q24H IV 06/11/24 21:15 06/18/24 02:22 20.844 MLS/HR Morphine Sulfate 2 mg Q30M PRN IV 06/11/24 22:00 Nitroglycerin 0.4 mg Q5MINP PRN SL 06/11/24 22:00 Ipratropium [place] 0.5 mg Q6HR NEB 06/12/24 00:00 06/18/24 06:13 0.5 MG Midazolam HCl 50 ml @ 1 mls/hr Q24H IV 06/12/24 01:15 06/18/24 02:13 12 MLS/HR Pantoprazole Sodium 40 mg DAILY IV 06/12/24 10:00 06/16/24 09:09 40 MG Vancomycin HCl 0 ml @ 0 mls/hr UD IV 06/12/24 08:15 Cancel Enteral Nutritional Formula 1,000 ml 30ML/HR GT 06/13/24 09:00 06/16/24 17:23 1,000 ML Ondansetron HCl 4 mg Q4HPRN PRN IV 06/16/24 03:30 06/16/24 03:24 4 MG Ampicillin Sodium 2 gm/Sodium Chloride 100 ml @ 100 mls/hr Q6HR IV 06/17/24 12:00 06/18/24 06:07 100 MLS/HR Hydralazine HCl 10 mg Q6HP PRN IV 06/17/24 08:45 Potassium Chloride 40 meq/ Sodium Chloride 1,020 ml @ 75 mls/hr [id number] IV 06/17/24 12:30 06/18/24 02:31 75 MLS/HR Acetaminophen 650 mg Q6HP PRN GT 06/17/24 12:45 Albuterol 2.5 mg Q6HR NEB 06/17/24 18:00 06/18/24 06:13 2.5 MG Enoxaparin Sodium 40 mg DAILY SC 06/18/24 10:00 Budesonide 0.5 mg BID NEB 06/17/24 22:00 06/18/24 06:13 0.5 MG Dexmedetomidine HCl 400 mcg/ Dextrose 100 ml @ 3.86 mls/hr Q24H IV 06/17/24 13:00 Fentanyl Citrate 250 ml @ 2.5 mls/hr Q24H IV 06/17/24 13:00 06/18/24 00:13 2.5 MLS/HR Hydrocortisone Sodium Succinate 50 mg Q12HR IV 06/17/24 22:00 06/17/24 22:06 50 MG Laboratory Results Laboratory Tests 06/18/24 04:50 Chemistry Test 06/18/24 04:50 Calcium Level 9.0 mg/dL (8.7-10.4) Urinalysis Test 06/11/24 20:30 Urine Color Light-yellow (Yellow) Urine Clarity Turbid (Clear) H Urine pH 6.5 (5.0-9.0) Urine Specific [place] 1.025 (1.001-1.035) Urine Protein Trace (Negative) H Urine Ketones Negative (Negative) Urine Blood 1+ /uL (Negative) H Urine Nitrite Negative (Negative) Urine Bilirubin Negative (Negative) Urine Urobilinogen Normal mg/dL (Negative) Urine Leukocyte Esterase 2+ /uL (Negative) Urine RBC 7 /hpf (0 - 4) Urine WBC 11 /hpf (0 - 5) Urine Squamous Epithelial Cells Few /hpf (<5) Urine Bacteria Many /hpf (None Seen) H Urine Glucose Normal mg/dL (Normal) Blood Gas Results Test 06/18/24 03:31 Arterial Blood pH 7.463 (7.350-7.450) FiO2 % 30.0 Microbiology Microbiology Date/Time Source Procedure Growth Status 06/11/24 21:50 Trachea Gram Stain - Final Complete 06/11/24 21:50 Respiratory Culture - Final Streptococcus Group A Complete 06/11/24 20:30 Voided Urine Urine Culture - Final Complete 06/11/24 16:40 Blood Blood Culture - Final NO GROWTH AFTER 5 DAYS OF INCUBATION. Complete Labs and/or images reviewed: Labs reviewed by me, Image(s) reviewed by me Assessment/Plan Assessment/Plan Impression: -metabolic encephalopathy -sepsis with shock -community-acquired pneumonia, probable Gram-positive/Gram-negative etiology. Possible aspiration etiology -history of COPD -primary hypertension -NSTEMI type 2 secondary to sepsis -acute hypoxic respiratory failure with mechanical ventilation Plan: Events: Patient placed back on sedation yesterday evening. Instructed primary nurse to weaned off of Versed and fentanyl and he was Precedex. Patient had repeat bronchoscopy yesterday evening. -PRN antihypertensives -continue ampicillin -continue bronchodilators and Pulmicort -hydrocortisone IV 50 mg b.i.d. -PUD, DVT prophylaxis -discontinue odium bicarbonate drip -continue current ventilator settings, wean sedation and proceed with CPAP trial once patient was appropriate -repeat labs, chest x-ray, ABG in a.m. Critical care time spent with patient discussing and formulating plan of care: 40 minutes. This does not include time spent performing procedures. This medical document was created using an electronic medical record system with [employer] dictation system. Although this document has been carefully reviewed, there may still be some phonetic and typographical errors. These areas are purely typographical due to imperfections of the software programs, and do not reflect any compromise in the patient's medical care. Plan discussed with: Patient, Other (RN) My Orders Orders - VIRGEN MANZO DISTRICT MANAGER Procedure Category Date Status Time Ampicillin Sod 2gm Inj PHA 06/17/24 In Process 12:00 Hydralazine Injection PHA 06/17/24 In Process (Apresoline Inject 08:45 Complete Blood Count LAB 06/18/24 In Process 04:00 Chest Xray 1 View XY 06/18/24 Resulted 04:00 Sod Chl 0.45% PHA 06/17/24 In Process (Sodi... W/Potassium 12:30 Acetaminophen PHA 06/17/24 In Process Solution Oral 12:45 Budesonide PHA 06/17/24 In Process (Inhalation) 22:00 D5w 5% (Dextrose 5%) PHA 06/17/24 In Process W/Dexmedetomidine 13:00 Hydrocortisone PHA 06/17/24 In Process Succinate Inj 22:00 Manual Differential LAB 06/18/24 In Process 04:50 Date of Service: Jun 18, 2024 Billing Provider: VIRGEN MANZO NP Common Visit Codes: [id number] CARE 30-74 MIN VIRGEN MANZO NP Jun 18, 2024 08:36
[2024-06-18 08:55] LABS: Band Neutrophils % (manual) 2; Lymphocytes % (manual) 17 (10.0-50.0); Platelet Estimate Adequate
[2024-06-18] MEDS: ENOXAPARIN SOD 40 MG/0.4 ML SYRINGE SC SCH (10:33)
[2024-06-18 14:37] LABS: Base Excess 0.5 mmol/L (-2.0-3.0)
[2024-06-19] VITALS (46 sets, daily range): BP systolic 130–171; BP diastolic 49–101; PULSE 85–134; RESP 16–39; TEMP 97.3–100.3; O2SAT 92–100
[2024-06-19] MEDS: hydrALAZINE HCL 20 MG/ML VL IV PRN (00:59)
[2024-06-19] MEDS ORDERED: METOPROLOL TARTRATE 1MG/1ML-5ML VIAL IV ONE (07:30)
[2024-06-19] MEDS: METOPROLOL TARTRATE 1MG/1ML-5ML VIAL IV ONE (07:39)
[2024-06-19] MEDS ORDERED: ONDANSETRON HCL 4 MG/2 ML VIAL IV PRN (08:00)
[2024-06-19 08:25] LABS: Hematocrit 34.5 % (36.0-46.0); Hemoglobin 11.2 g/dL (12.2-16.2); Mean Corpuscular Hemoglobin 28.5 pg (28.0-32.0); Mean Corpuscular Hgb Conc. 32.4 g/dL (32.0-36.0); Mean Corpuscular Volume 87.8 fL (80.0-100.0); Platelet Count (auto) 269 10^3/uL (140-450); Red Blood Cells 3.93 10^6/uL (4.0-5.20); Red Cell Distribution Width 14.9 % (11.8-14.3); White Blood Cell 11.3 10^3/uL (4.4-10.8)
[2024-06-19] MEDS: KETOROLAC TROMETH 30 MG/ML 1ML VIAL IV ONE (08:31)
[2024-06-19 08:33] LABS: Sodium 143 mmol/L (136-145)
[2024-06-19 08:34] LABS: Anion Gap 9 (5-15); Carbon Dioxide 27 mmol/L (20-31)
[2024-06-19 08:36] LABS: Calcium 8.5 mg/dL (8.7-10.4); Chloride 107 mmol/L (98-107); Potassium 3.4 mmol/L (3.5-5.1)
[2024-06-19 08:39] LABS: Blood Urea Nitrogen 16 mg/dL (9-23); Glucose 92 mg/dL (74-106)
[2024-06-19 08:46] LABS: Phosphorus 3.6 mg/dL (2.4-5.1)
[2024-06-19 08:47] LABS: Magnesium 1.3 mg/dL (1.6-2.6)
[2024-06-19 09:01] LABS: Basophils % (manual) 0 (0.0-2.0); Blast Cells 0; Metamyelocytes % 0; Myelocytes % 0; Promyelocytes % 0; Reactive Lymphocytes 0
--- NOTE | 2024-06-19 09:05 | DVHPN2 ---
Subjective Patient extubated yesterday afternoon. Currently alert and oriented to name and person only. Reviewed: Care Plan, H&P, Labs, Medications, Previous Orders, Radiology, Other (Press Set Up Person) Changes from previous H/P or p: Changes General: Per HPI Objective Vitals Vital Signs Date Time Temp Pulse Resp B/P (MAP) Pulse Ox O2 Delivery O2 Flow Rate FiO2 06/19/24 08:30 98.9 117 24 98.9 06/19/24 08:15 98 06/19/24 06:00 Nasal Cannula* 2 28 Intake/Output Intake and Output 06/19/24 07:00 Intake Total 2142.282 ml Output Total 4200 ml Balance -2057.718 ml Intake Oral 0 ml IV Total 2142.282 ml Output Urine Total 4200 ml # Bowel Movements 3 General Appearance: Alert, Oriented X3 (X1), mild distress, Other (Intubated, encephalopathic) HEENT: Atraumatic, PERRLA Lungs: Other Cardiovascular: Regular rate Abdomen: Soft, No tenderness, Other (Sinus tachycardia) Genitourinary: No Apparent Abnormalities (White) Extremities: Other Neuro: Other Skin: Dry, Intact Psych/Mental Status: Other Medications Current Medications Medications Dose Ordered Sig/Ilan Route Start Time Stop Time Status Last Admin Dose Admin Morphine Sulfate 2 mg Q30M PRN IV 06/11/24 22:00 Nitroglycerin 0.4 mg Q5MINP PRN SL 06/11/24 22:00 Ipratropium [place] 0.5 mg Q6HR NEB 06/12/24 00:00 06/19/24 05:35 0.5 MG Pantoprazole Sodium 40 mg DAILY IV 06/12/24 10:00 06/18/24 10:33 40 MG Vancomycin HCl 0 ml @ 0 mls/hr UD IV 06/12/24 08:15 Cancel Enteral Nutritional Formula 1,000 ml 30ML/HR GT 06/13/24 09:00 06/16/24 17:23 1,000 ML Ondansetron HCl 4 mg Q4HPRN PRN IV 06/16/24 03:30 06/16/24 03:24 4 MG Ampicillin Sodium 2 gm/Sodium Chloride 100 ml @ 100 mls/hr Q6HR IV 06/17/24 12:00 06/19/24 05:47 100 MLS/HR Potassium Chloride 40 meq/ Sodium Chloride 1,020 ml @ 75 mls/hr [id number] IV 06/17/24 12:30 06/18/24 15:42 75 MLS/HR Acetaminophen 650 mg Q6HP PRN GT 06/17/24 12:45 Albuterol 2.5 mg Q6HR NEB 06/17/24 18:00 06/19/24 05:35 2.5 MG Enoxaparin Sodium 40 mg DAILY SC 06/18/24 10:00 06/18/24 10:33 40 MG Budesonide 0.5 mg BID NEB 06/17/24 22:00 06/19/24 05:35 0.5 MG Hydrocortisone Sodium Succinate 50 mg Q12HR IV 06/17/24 22:00 06/18/24 22:25 50 MG Metoprolol Tartrate 1.25 mg Q6HR IV 06/19/24 12:00 06/20/24 00:01 Morphine Sulfate 1 mg Q4HPRN PRN IV 06/19/24 08:00 Ondansetron HCl 4 mg Q6HP PRN IV 06/19/24 08:00 Laboratory Results Laboratory Tests 06/19/24 05:00 Chemistry Test 06/19/24 05:00 Calcium Level 8.5 mg/dL (8.7-10.4) L Magnesium Level 1.3 mg/dL (1.6-2.6) L Phosphorus Level 3.6 mg/dL (2.4-5.1) Urinalysis Test 06/11/24 20:30 Urine Color Light-yellow (Yellow) Urine Clarity Turbid (Clear) H Urine pH 6.5 (5.0-9.0) Urine Specific [place] 1.025 (1.001-1.035) Urine Protein Trace (Negative) H Urine Ketones Negative (Negative) Urine Blood 1+ /uL (Negative) H Urine Nitrite Negative (Negative) Urine Bilirubin Negative (Negative) Urine Urobilinogen Normal mg/dL (Negative) Urine Leukocyte Esterase 2+ /uL (Negative) Urine RBC 7 /hpf (0 - 4) Urine WBC 11 /hpf (0 - 5) Urine Squamous Epithelial Cells Few /hpf (<5) Urine Bacteria Many /hpf (None Seen) H Urine Glucose Normal mg/dL (Normal) Blood Gas Results Test 06/18/24 13:07 Arterial Blood pH 7.474 (7.350-7.450) FiO2 % 30.0 Microbiology Microbiology Date/Time Source Procedure Growth Status 06/17/24 20:34 Nose MRSA Screen - Final Complete 06/11/24 20:30 Voided Urine Urine Culture - Final Complete 06/11/24 16:40 Blood Blood Culture - Final NO GROWTH AFTER 5 DAYS OF INCUBATION. Complete Labs and/or images reviewed: Labs reviewed by me, Image(s) reviewed by me Assessment/Plan Assessment/Plan Impression: -metabolic encephalopathy -sepsis with shock -community-acquired pneumonia, probable Gram-positive/Gram-negative etiology. Possible aspiration etiology -history of COPD -primary hypertension -NSTEMI type 2 secondary to sepsis -acute hypoxic respiratory failure with mechanical ventilation Plan: Events: Patient extubated yesterday afternoon. Noted to have progressively worsening sinus tachycardia overnight, this a.m.. Review of the patient's home meds reveals that she was on atenolol. Probable beta-kaitlin withdrawal at this time. Continue IV Lopressor until patient has swallow evaluation for resuming oral beta-blockers. -PRN antihypertensives: Discontinue hydralazine -continue ampicillin -change bronchodilators to Xopenex and Atrovent. Continue Pulmicort. -stop hydrocortisone given patient was no longer in shock -PUD, DVT prophylaxis Repeat labs in a.m.. Long discussion made with the patient's daughter yesterday morning. Apparently she is considering hospice placement at the time of discharge. All questions answered. Critical care time spent with patient discussing and formulating plan of care: 40 minutes. This does not include time spent performing procedures. Total time spent with patient and family regarding advance care plannin minutes. This medical document was created using an electronic medical record system with [employer] dictation system. Although this document has been carefully reviewed, there may still be some phonetic and typographical errors. These areas are purely typographical due to imperfections of the software programs, and do not reflect any compromise in the patient's medical care. Plan discussed with: Patient, Daughter, Other (RN) My Orders Orders - VIRGEN MANZO NP Procedure Category Date Status Time Extubate AMRIT 06/18/24 In Process 13:30 Metoprolol Inj PHA 06/19/24 In Process (Lopressor) 12:00 Morphine Sulfate PHA 06/19/24 In Process Injection 08:00 Ondansetron Hcl PHA 06/19/24 In Process (Zofran) 08:00 Basic Metabolic Panel LAB 06/20/24 Verified 04:00 Chest Portable XY 06/20/24 Logged 04:00 Transfer Orders XFER 06/19/24 Transmitted 08:07 Date of Service: Jun 19, 2024 Billing Provider: VIRGEN MANZO NP Common Visit Codes: [id number] CARE 30-74 MIN Secondary Visit Codes: [id number] CARE PLAN 30 MINUTES VIRGEN MANZO NP Jun 19, 2024 09:05
[2024-06-19 09:19] LABS: Band Neutrophils % (manual) 1; Eosinophils % (manual) 1 (0-7); Lymphocytes % (manual) 9 (10.0-50.0); Monocytes % (manual) 4 (0-12)
[2024-06-19 09:20] LABS: Platelet Estimate Adequate
[2024-06-19] MEDS: LEVALBUTEROL HCL 1.25 MG/3 ML NEB NEB SCH (11:20)
[2024-06-19] MEDS: MAGNESIUM SULFATE 1GM/100ML 100 ML IV SCH (11:37)
[2024-06-19] MEDS: METOPROLOL TARTRATE 1MG/1ML-5ML VIAL IV SCH (11:38)
[2024-06-19] MEDS: MORPHINE SULFATE INJ 2 MG/ml SYRG IV PRN (13:01)
[2024-06-19] MEDS: POTASSIUM CHL 20MEQ/100ML 100 ML IV ONE (13:08)
--- NOTE | 2024-06-19 14:24 | ECG ---
[facility] Test Date: 2024-06-19 Test Time: 07:19:32 Pat Name: MARILEE RECIO Department: Respiratoy Room: 0236T Gender: F Washer Off: JESS : 1955 Requested By: VIRGEN MANZO Order Number: [id number] Reading MD: Stanley Diggs Measurements Intervals [place] Rate: 136 P: 98 DE: 128 QRS: 39 QRSD: 79 T: 18 QT: 300 QTc: 452 Interpretive Statements Supraventricular tachycardia likely sinus tachycardia Poor R wave progrssion, precordial leads Repolarization abnormality prob rate related Electronically Signed On 06-20-2024 9:20:22 PST by Stanley Diggs Please click the below link to view image of tracing.
--- NOTE | 2024-06-19 21:03 | DVHPN2 ---
Progress Note - Dictate Date Seen: Jun 19, 2024 Medical Necessity Reason Pt with a Central, PICC or Fol: Yes The following are medically ne: Jones Catheter Reason for jones catheter: Strict I&O Subjective Patient seen and examined at bedside. S/p extubation, on supplemental oxygen Overnight events reviewed. vital signs Vital Sign Date Time Temp Pulse Resp B/P (MAP) Pulse Ox O2 Delivery O2 Flow Rate FiO2 06/19/24 20:00 20 100 Nasal Cannula* 2 28 06/19/24 20:00 98.4 105 156/61 (92) 98.4 Total Intake and Output 06/18/24 06/18/24 06/19/24 15:00 23:00 07:00 Intake Total 717.282 ml 700 ml 800 ml Output Total 2200 ml 2000 ml Balance 717.282 ml -1500 ml -1200 ml medications Current Medications Medications Dose Ordered Sig/Ilan Route Start Time Stop Time Status Last Admin Dose Admin Morphine Sulfate 2 mg Q30M PRN IV 06/11/24 22:00 Nitroglycerin 0.4 mg Q5MINP PRN SL 06/11/24 22:00 Ipratropium [place] 0.5 mg Q6HR NEB 06/12/24 00:00 06/19/24 18:32 0.5 MG Pantoprazole Sodium 40 mg DAILY IV 06/12/24 10:00 06/19/24 09:16 40 MG Vancomycin HCl 0 ml @ 0 mls/hr UD IV 06/12/24 08:15 Cancel Enteral Nutritional Formula 1,000 ml 30ML/HR GT 06/13/24 09:00 06/16/24 17:23 1,000 ML Ondansetron HCl 4 mg Q4HPRN PRN IV 06/16/24 03:30 06/16/24 03:24 4 MG Ampicillin Sodium 2 gm/Sodium Chloride 100 ml @ 100 mls/hr Q6HR IV 06/17/24 12:00 06/19/24 17:43 100 MLS/HR Potassium Chloride 40 meq/ Sodium Chloride 1,020 ml @ 75 mls/hr [id number] IV 06/17/24 12:30 06/19/24 09:17 75 MLS/HR Acetaminophen 650 mg Q6HP PRN GT 06/17/24 12:45 Enoxaparin Sodium 40 mg DAILY SC 06/18/24 10:00 06/19/24 09:16 40 MG Budesonide 0.5 mg BID NEB 06/17/24 22:00 06/19/24 18:32 0.5 MG Morphine Sulfate 1 mg Q4HPRN PRN IV 06/19/24 08:00 06/19/24 19:49 1 MG Ondansetron HCl 4 mg Q6HP PRN IV 06/19/24 08:00 Levalbuterol HCl 0.625 mg Q6HR NEB 06/19/24 12:00 06/19/24 18:32 0.625 MG Metoprolol Tartrate 25 mg BID PO 06/19/24 22:00 objective Gen.: Patient lying in bed in no apparent distress. On supplemental oxygen. Head: Normocephalic, atraumatic. Eyes: EOMI/PERRLA. Ears: Normal hearing. Normal anatomy. Neck/trachea: Trachea midline, supple. Nose: Normal external anatomy. Mouth: Moist mucous membranes. Chest: Decreased air entry bilaterally. No wheezing or rhonchi. Cardiovascular: Positive S1, positive S2. Regular rate and rhythm. Abdomen: Positive bowel sounds in all 4 quadrants. Soft, non-tender, non- distended. : Deferred. Rectal: Deferred. Skin: Warm, dry. Intact. Extremities: 2+ radial pulses bilaterally. No lower extremity edema. Neuro: Awake, alert, oriented x3. No gross motor or sensory deficits. Cranial nerves II through XII intact. Gait not assessed. laboratory and microbiology Laboratory Tests 06/19/24 05:00 Test 06/19/24 05:00 Range/Units Serum Glucose 92 74-106 mg/dL Assessment/Plan Impression: Acute hypoxic respiratory failure On mechanical ventilator Metabolic encephalopathy Sepsis with shock Pneumonia COPD Hypertension NSTEMI type 2 secondary to sepsis Events: Patient tolerated CPAP, was extubated uneventfully yesterday. Currently on supplemental O2 at 2 LPM NC Taper O2 as tolerated Off sedation Remains hemodynamically stable. Continue antibiotics Continue bronchodilators On IV fluids with half NS at 75 ml/hr Continue tube feeds for nutritional support K, mag supplementation Monitor renal function Monitor electrolytes. Supplement as necessary. PT/OT. Patient is stable for downgrade from the pulmonary standpoint S/p bronchoscopy on 06/17/24 with RML BAL - copious secretions cleared from RLL/LLL See separate procedure note for details. Labs and imaging reviewed. Rest of plan as noted below. Plan: s/p extubation on 06/18/24 Supplemental oxygen Titrate to keep O2 sats above 92%. Off sedation Continue bronchodilators. Continue antibiotics. IV steroids Pressors if necessary for hemodynamic support Titrate to keep mean arterial pressure greater than 65 mmHg. Monitor renal function Monitor electrolytes. Supplement as necessary. Monitor ins and outs. Maintain euvolemia. GI prophylaxis. DVT prophylaxis. Prognosis: Poor given patient's multiple co-morbidities. Condition: Critical Rest of plan per hospitalist and other consultants. A total of 35 minutes of critical care time was spent reviewing the patient record, examining the patient, making a diagnostic and therapeutic plan, discussing this plan with the medical personnel, following up on diagnostic studies and following the patient for clinical stability excluding any and all procedures. At least 50% of this time was spent in direct, [id number] contact. Thank you, Dr. El, for allowing me to participate in this patient's care. Further recommendations will depend on the patient's clinical course. Please do not hesitate to contact me if you have any questions or concerns. This medical document was created using an electronic medical record system with [employer] dictation system. Although these documentations are being carefully reviewed, there may still be some phonetic and typographical changes. The errors are purely typographical, due to imperfection on the software program, and do not reflect any compromise in the patient's medical care. Dietary Evaluation Review Comments: 1. Consider increase TF jevity 1.2 @50ml/hr to provide 1440kcal, 67g pro, 968ml FW to meet needs when appropriate 2. Consider adjust insulin regime 3. Consider increase water flush for high Na Expected Outcomes/Goals: 1. Pt will meet >75% of estimated needs within 2-3 days Plan discussed with: Other (SONNY Kelly) Critical Care Time(min): 35 ZENAIDA SORIANO MD Jun 19, 2024 21:03
[2024-06-19] MEDS: METOPROLOL TARTRATE 25 MG TAB PO SCH (21:33)
[2024-06-20] VITALS (26 sets, daily range): BP systolic 108–159; BP diastolic 59–92; PULSE 76–102; RESP 13–27; TEMP 97.8–98.6; O2SAT 94–100
--- NOTE | 2024-06-20 05:07 | DVH ---
CHEST RADIOGRAPH Indication: pna Technique: Single frontal view of the chest was obtained COMPARISON: XY CHEST XRAY 1 VIEW on DOS: 06/18/24, XY CHEST PORTABLE on DOS: 06/17/24, XY CHEST PORTABLE on DOS: 06/16/24, XY CHEST PORTABLE on DOS: 06/15/24, XY CHEST PORTABLE on DOS: 06/13/24 FINDINGS: Lines and Tubes: Right central venous catheter in satisfactory position. Lungs: Congestion Pleura: No effusion. No pneumothorax. Cardiomediastinal contours: Unremarkable Bones: Unremarkable IMPRESSION: Interval extubation. No other significant interval change.
[2024-06-20 05:15] LABS: Hematocrit 32.4 % (36.0-46.0); Hemoglobin 10.6 g/dL (12.2-16.2); Mean Corpuscular Hgb Conc. 32.7 g/dL (32.0-36.0); Mean Corpuscular Volume 88.7 fL (80.0-100.0); Platelet Count (auto) 273 10^3/uL (140-450); Red Blood Cells 3.65 10^6/uL (4.0-5.20); White Blood Cell 11.4 10^3/uL (4.4-10.8)
[2024-06-20 05:31] LABS: Chloride 107 mmol/L (98-107); Sodium 142 mmol/L (136-145)
[2024-06-20 05:32] LABS: Anion Gap 8 (5-15); Carbon Dioxide 27 mmol/L (20-31)
[2024-06-20 05:33] LABS: Basophils % (manual) 0 (0.0-2.0); Blast Cells 0; Metamyelocytes % 0; Myelocytes % 0; Promyelocytes % 0; Reactive Lymphocytes 0
[2024-06-20 05:37] LABS: BUN/Creatinine Ratio 17.2 (10.0-20.0); Blood Urea Nitrogen 10 mg/dL (9-23); Glucose 74 mg/dL (74-106)
[2024-06-20 05:38] LABS: Magnesium 1.8 mg/dL (1.6-2.6)
[2024-06-20 05:43] LABS: Calcium 8.2 mg/dL (8.7-10.4); Potassium 3.4 mmol/L (3.5-5.1)
[2024-06-20 08:45] LABS: Band Neutrophils % (manual) 5; Eosinophils % (manual) 3 (0-7); Lymphocytes % (manual) 13 (10.0-50.0); Monocytes % (manual) 10 (0-12)
[2024-06-20 08:50] LABS: Anisocytosis Slight; Platelet Estimate Adequate
[2024-06-20] MEDS: POTASSIUM EFFERVESENT TAB 25 MEQ PO ONE (11:41)
[2024-06-20] MEDS: FUROSEMIDE 20 MG TAB PO SCH (11:42)
[2024-06-20] MEDS: HYDROcodone-ACET 10/325MG TAB PO PRN (11:50)
--- NOTE | 2024-06-20 12:29 | DVHPN2 ---
Subjective Patient more alert and oriented. Denies any symptoms. Reviewed: Care Plan, H&P, Labs, Medications, Previous Orders, Radiology, Other ([place] Guide) Changes from previous H/P or p: No Changes General: Per HPI Objective Vitals Vital Signs Date Time Temp Pulse Resp B/P (MAP) Pulse Ox O2 Delivery O2 Flow Rate FiO2 06/20/24 11:42 158/69 06/20/24 10:33 81 06/20/24 10:00 94 Nasal Cannula* 2 28 06/20/24 09:00 98.2 15 98.2 Intake/Output Intake and Output 06/20/24 07:00 Intake Total 2975 ml Output Total 3025 ml Balance -50 ml Intake Oral 375 ml IV Total 2600 ml Output Urine Total 3025 ml # Bowel Movements 3 General Appearance: Alert, Oriented X3, Cooperative, No acute distress, mild distress, Other (Intubated, encephalopathic) HEENT: Atraumatic, PERRLA Lungs: Other Cardiovascular: Regular rate Abdomen: Soft, No tenderness, Other (Sinus tachycardia) Genitourinary: No Apparent Abnormalities (White) Extremities: Other Neuro: Normal speech, Cranial nerves 3-12 NL, Other Skin: Dry, Intact Psych/Mental Status: Other Medications Current Medications Medications Dose Ordered Sig/Ilan Route Start Time Stop Time Status Last Admin Dose Admin Morphine Sulfate 2 mg Q30M PRN IV 06/11/24 22:00 Nitroglycerin 0.4 mg Q5MINP PRN SL 06/11/24 22:00 Ipratropium [place] 0.5 mg Q6HR NEB 06/12/24 00:00 06/20/24 05:50 0.5 MG Pantoprazole Sodium 40 mg DAILY IV 06/12/24 10:00 06/20/24 09:32 40 MG Vancomycin HCl 0 ml @ 0 mls/hr UD IV 06/12/24 08:15 Cancel Enteral Nutritional Formula 1,000 ml 30ML/HR GT 06/13/24 09:00 06/16/24 17:23 1,000 ML Ampicillin Sodium 2 gm/Sodium Chloride 100 ml @ 100 mls/hr Q6HR IV 06/17/24 12:00 06/20/24 06:00 100 MLS/HR Acetaminophen 650 mg Q6HP PRN GT 06/17/24 12:45 Enoxaparin Sodium 40 mg DAILY SC 06/18/24 10:00 06/20/24 09:33 40 MG Budesonide 0.5 mg BID NEB 06/17/24 22:00 06/20/24 05:50 0.5 MG Ondansetron HCl 4 mg Q6HP PRN IV 06/19/24 08:00 Levalbuterol HCl 0.625 mg Q6HR NEB 06/19/24 12:00 06/20/24 05:50 0.625 MG Metoprolol Tartrate 25 mg BID PO 06/19/24 22:00 06/20/24 09:33 25 MG Furosemide 20 mg DAILY PO 06/20/24 10:30 06/20/24 11:42 20 MG Acetaminophen/ Hydrocodone Bitart 1 tab Q6HP PRN PO 06/20/24 11:30 06/20/24 11:50 1 TAB Laboratory Results Laboratory Tests 06/20/24 04:42 Chemistry Test 06/20/24 04:42 Calcium Level 8.2 mg/dL (8.7-10.4) L Magnesium Level 1.8 mg/dL (1.6-2.6) Urinalysis Test 06/11/24 20:30 Urine Color Light-yellow (Yellow) Urine Clarity Turbid (Clear) H Urine pH 6.5 (5.0-9.0) Urine Specific [place] 1.025 (1.001-1.035) Urine Protein Trace (Negative) H Urine Ketones Negative (Negative) Urine Blood 1+ /uL (Negative) H Urine Nitrite Negative (Negative) Urine Bilirubin Negative (Negative) Urine Urobilinogen Normal mg/dL (Negative) Urine Leukocyte Esterase 2+ /uL (Negative) Urine RBC 7 /hpf (0 - 4) Urine WBC 11 /hpf (0 - 5) Urine Squamous Epithelial Cells Few /hpf (<5) Urine Bacteria Many /hpf (None Seen) H Urine Glucose Normal mg/dL (Normal) Microbiology Microbiology Date/Time Source Procedure Growth Status 06/17/24 20:34 Nose MRSA Screen - Final Complete 06/11/24 20:30 Voided Urine Urine Culture - Final Complete 06/11/24 16:40 Blood Blood Culture - Final NO GROWTH AFTER 5 DAYS OF INCUBATION. Complete Labs and/or images reviewed: Labs reviewed by me, Image(s) reviewed by me Assessment/Plan Assessment/Plan Impression: -metabolic encephalopathy -sepsis with shock -community-acquired pneumonia, probable Gram-positive/Gram-negative etiology. Possible aspiration etiology -history of COPD -primary hypertension -NSTEMI type 2 secondary to sepsis -acute hypoxic respiratory failure with mechanical ventilation -probable beta kaitlin withdrawal Plan: Events: Patient clinically improving. Now alert oriented x4. Patient has been out of bed to chair yesterday. Swallow evaluation was performed with the patient tolerating regular diet. Somewhat hypertensive today. -increase metoprolol tartrate -continue ampicillin -change bronchodilators to Xopenex and Atrovent. Continue Pulmicort. -stop hydrocortisone given patient was no longer in shock -PUD, DVT prophylaxis Repeat labs in a.m.. Social service consultation for home health services. Total time spent with patient discussing and formulating plan of care: 35 minutes. This medical document was created using an electronic medical record system with [employer] dictation system. Although this document has been carefully reviewed, there may still be some phonetic and typographical errors. These areas are purely typographical due to imperfections of the software programs, and do not reflect any compromise in the patient's medical care. Plan discussed with: Patient, Daughter, Other (RN) My Orders Orders - VIRGEN MANZO NP Procedure Category Date Status Time Electrocardigram EKG 06/19/24 Resulted 14:16 Regular Diet DIET 06/19/24 Transmitted Dinner Metoprolol Tartrate PHA 06/19/24 In Process Tablet (Lopressor Ta 22:00 Transfer Orders XFER 06/19/24 Transmitted 17:09 Furosemide Tablet PHA 06/20/24 In Process (Lasix Tablet) 10:30 Hydrocodone-Acet PHA 06/20/24 In Process 10/325mg Tab ([place] 11:30 Date of Service: Jun 20, 2024 Billing Provider: VIRGEN MANZO NP Common Visit Codes: [id number] INP/OBS CARE(HIGH) VIRGEN MANZO NP Jun 20, 2024 12:28
[2024-06-20] MEDS: LISINOPRIL 20 MG TAB PO SCH (13:35)
[2024-06-20] MEDS: METOPROLOL TARTRATE 50 MG TAB PO SCH (21:02)
--- NOTE | 2024-06-20 23:24 | DVHPN2 ---
Progress Note - Dictate Date Seen: Jun 20, 2024 Medical Necessity Reason Pt with a Central, PICC or Fol: Yes The following are medically ne: Jones Catheter Reason for jones catheter: Strict I&O Subjective Patient seen and examined at bedside. Remains on supplemental oxygen Overnight events reviewed. vital signs Vital Sign Date Time Temp Pulse Resp B/P (MAP) Pulse Ox O2 Delivery O2 Flow Rate FiO2 06/20/24 21:02 90 158/59 06/20/24 20:49 98.2 13 97 98.2 06/20/24 17:57 Nasal Cannula* 2 28 Total Intake and Output 06/19/24 06/19/24 06/20/24 14:59 22:59 06:59 Intake Total 1050 ml 990 ml 760 ml Output Total 1150 ml 1875 ml Balance 1050 ml -160 ml -1115 ml medications Current Medications Medications Dose Ordered Sig/Ilan Route Start Time Stop Time Status Last Admin Dose Admin Morphine Sulfate 2 mg Q30M PRN IV 06/11/24 22:00 Nitroglycerin 0.4 mg Q5MINP PRN SL 06/11/24 22:00 Ipratropium [place] 0.5 mg Q6HR NEB 06/12/24 00:00 06/20/24 17:57 0.5 MG Pantoprazole Sodium 40 mg DAILY IV 06/12/24 10:00 06/20/24 09:32 40 MG Vancomycin HCl 0 ml @ 0 mls/hr UD IV 06/12/24 08:15 Cancel Ampicillin Sodium 2 gm/Sodium Chloride 100 ml @ 100 mls/hr Q6HR IV 06/17/24 12:00 06/20/24 18:27 100 MLS/HR Acetaminophen 650 mg Q6HP PRN GT 06/17/24 12:45 Enoxaparin Sodium 40 mg DAILY SC 06/18/24 10:00 06/20/24 09:33 40 MG Budesonide 0.5 mg BID NEB 06/17/24 22:00 06/20/24 17:57 0.5 MG Ondansetron HCl 4 mg Q6HP PRN IV 06/19/24 08:00 Levalbuterol HCl 0.625 mg Q6HR NEB 06/19/24 12:00 06/20/24 17:57 0.625 MG Furosemide 20 mg DAILY PO 06/20/24 10:30 06/20/24 11:42 20 MG Acetaminophen/ Hydrocodone Bitart 1 tab Q6HP PRN PO 06/20/24 11:30 06/20/24 17:50 1 TAB Metoprolol Tartrate 50 mg BID PO 06/20/24 22:00 06/20/24 21:02 50 MG Lisinopril 20 mg DAILY PO 06/20/24 12:45 06/20/24 13:35 20 MG objective Gen.: Patient lying in bed in no apparent distress. On supplemental oxygen. Head: Normocephalic, atraumatic. Eyes: EOMI/PERRLA. Ears: Normal hearing. Normal anatomy. Neck/trachea: Trachea midline, supple. Nose: Normal external anatomy. Mouth: Moist mucous membranes. Chest: Decreased air entry bilaterally. No wheezing or rhonchi. Cardiovascular: Positive S1, positive S2. Regular rate and rhythm. Abdomen: Positive bowel sounds in all 4 quadrants. Soft, non-tender, non- distended. : Deferred. Rectal: Deferred. Skin: Warm, dry. Intact. Extremities: 2+ radial pulses bilaterally. No lower extremity edema. Neuro: Awake, alert, oriented x3. No gross motor or sensory deficits. Cranial nerves II through XII intact. Gait not assessed. laboratory and microbiology Laboratory Tests 06/20/24 04:42 Test 06/20/24 04:42 Range/Units Serum Glucose 74 74-106 mg/dL Assessment/Plan Impression: Acute hypoxic respiratory failure Metabolic encephalopathy Sepsis with shock Pneumonia COPD Hypertension NSTEMI type 2 secondary to sepsis Events: Remains on supplemental O2 at 2 LPM NC Taper O2 as tolerated Continue antibiotics Continue bronchodilators Incentive spirometry Continue tube feeds for nutritional support Potassium supplementation Monitor renal function Monitor electrolytes. Supplement as necessary. PT/OT. Consider central line removal once IV access is established. S/p bronchoscopy on 06/17/24 with RML BAL - copious secretions cleared from RLL/LLL See separate procedure note for details. Labs and imaging reviewed. Rest of plan as noted below. Plan: s/p extubation on 06/18/24 Supplemental oxygen Titrate to keep O2 sats above 92%. Off sedation Remains hemodynamically stable. Continue bronchodilators. Continue antibiotics. Pressors if necessary for hemodynamic support Titrate to keep mean arterial pressure greater than 65 mmHg. Monitor renal function Monitor electrolytes. Supplement as necessary. Monitor ins and outs. Maintain euvolemia. GI prophylaxis. DVT prophylaxis. Prognosis: Poor given patient's multiple co-morbidities. Rest of plan per hospitalist and other consultants. Thank you, Dr. El, for allowing me to participate in this patient's care. Further recommendations will depend on the patient's clinical course. Please do not hesitate to contact me if you have any questions or concerns. This medical document was created using an electronic medical record system with [employer] dictation system. Although these documentations are being carefully reviewed, there may still be some phonetic and typographical changes. The errors are purely typographical, due to imperfection on the software program, and do not reflect any compromise in the patient's medical care. Dietary Evaluation Review Comments: 1. Consider increase TF jevity 1.2 @50ml/hr to provide 1440kcal, 67g pro, 968ml FW to meet needs when appropriate 2. Consider adjust insulin regime 3. Consider increase water flush for high Na Expected Outcomes/Goals: 1. Pt will meet >75% of estimated needs within 2-3 days Plan discussed with: Patient, Other (SONNY Reeder) ZENAIDA SORIANO MD Jun 20, 2024 23:24
[2024-06-21] VITALS (15 sets, daily range): BP systolic 133–171; BP diastolic 52–75; PULSE 60–100; RESP 14–20; TEMP 97.7–99.1; O2SAT 91–100
--- NOTE | 2024-06-21 10:18 | DVHPN2 ---
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 (Drier Operator) Changes from previous H/P or p: No Changes General: Per HPI Objective Vitals Vital Signs Date Time Temp Pulse Resp B/P (MAP) Pulse Ox O2 Delivery O2 Flow Rate FiO2 06/21/24 09:40 96 Nasal Cannula* 2 28 06/21/24 09:27 158/76 06/21/24 09:27 78 06/21/24 08:00 18 06/21/24 04:53 97.7 97.7 Intake/Output Intake and Output 06/21/24 07:00 Intake Total 1060 ml Output Total 3600 ml Balance -2540 ml Intake Oral 760 ml IV Total 300 ml Output Urine Total 3600 ml Stool Total 0 ml General Appearance: Alert, Oriented X3, Cooperative, No acute distress, mild distress, Other HEENT: Atraumatic, PERRLA Lungs: Other Cardiovascular: Regular rate Abdomen: Soft, No tenderness, Other Genitourinary: No Apparent Abnormalities Extremities: Other Neuro: Normal speech, Cranial nerves 3-12 NL, Other Skin: Dry, Intact Psych/Mental Status: Other Medications Current Medications Medications Dose Ordered Sig/Ilan Route Start Time Stop Time Status Last Admin Dose Admin Morphine Sulfate 2 mg Q30M PRN IV 06/11/24 22:00 Nitroglycerin 0.4 mg Q5MINP PRN SL 06/11/24 22:00 Ipratropium [place] 0.5 mg Q6HR NEB 06/12/24 00:00 06/21/24 06:37 0.5 MG Pantoprazole Sodium 40 mg DAILY IV 06/12/24 10:00 06/21/24 09:26 40 MG Vancomycin HCl 0 ml @ 0 mls/hr UD IV 06/12/24 08:15 Cancel Ampicillin Sodium 2 gm/Sodium Chloride 100 ml @ 100 mls/hr Q6HR IV 06/17/24 12:00 06/21/24 05:30 100 MLS/HR Acetaminophen 650 mg Q6HP PRN GT 06/17/24 12:45 Enoxaparin Sodium 40 mg DAILY SC 06/18/24 10:00 06/21/24 09:30 40 MG Budesonide 0.5 mg BID NEB 06/17/24 22:00 06/21/24 06:37 0.5 MG Ondansetron HCl 4 mg Q6HP PRN IV 06/19/24 08:00 Levalbuterol HCl 0.625 mg Q6HR NEB 06/19/24 12:00 06/21/24 06:37 0.625 MG Furosemide 20 mg DAILY PO 06/20/24 10:30 06/21/24 09:26 20 MG Acetaminophen/ Hydrocodone Bitart 1 tab Q6HP PRN PO 06/20/24 11:30 06/21/24 05:28 1 TAB Metoprolol Tartrate 50 mg BID PO 06/20/24 22:00 06/21/24 09:27 50 MG Lisinopril 20 mg DAILY PO 06/20/24 12:45 06/21/24 09:27 20 MG Laboratory Results Laboratory Tests 06/20/24 04:42 Urinalysis Test 06/11/24 20:30 Urine Color Light-yellow (Yellow) Urine Clarity Turbid (Clear) H Urine pH 6.5 (5.0-9.0) Urine Specific [place] 1.025 (1.001-1.035) Urine Protein Trace (Negative) H Urine Ketones Negative (Negative) Urine Blood 1+ /uL (Negative) H Urine Nitrite Negative (Negative) Urine Bilirubin Negative (Negative) Urine Urobilinogen Normal mg/dL (Negative) Urine Leukocyte Esterase 2+ /uL (Negative) Urine RBC 7 /hpf (0 - 4) Urine WBC 11 /hpf (0 - 5) Urine Squamous Epithelial Cells Few /hpf (<5) Urine Bacteria Many /hpf (None Seen) H Urine Glucose Normal mg/dL (Normal) Microbiology Microbiology Date/Time Source Procedure Growth Status 06/17/24 20:34 Nose MRSA Screen - Final Complete 06/11/24 20:30 Voided Urine Urine Culture - Final Complete 06/11/24 16:40 Blood Blood Culture - Final NO GROWTH AFTER 5 DAYS OF INCUBATION. Complete Labs and/or images reviewed: Labs reviewed by me, Image(s) reviewed by me Assessment/Plan Assessment/Plan Impression: -metabolic encephalopathy -sepsis with shock -community-acquired pneumonia, probable Gram-positive/Gram-negative etiology. Possible aspiration etiology -history of COPD -primary hypertension -NSTEMI type 2 secondary to sepsis -acute hypoxic respiratory failure with mechanical ventilation -probable beta kaitlin withdrawal Plan: Events: Pt has not ambulated -increase metoprolol tartrate,add lisinopril -continue ampicillin -change bronchodilators to Xopenex and Atrovent. Continue Pulmicort. -stop hydrocortisone given patient was no longer in shock -PUD, DVT prophylaxis Repeat labs in a.m.. Social service consultation for home health services. Total time spent with patient discussing and formulating plan of care: 35 minutes. This medical document was created using an electronic medical record system with [employer] dictation system. Although this document has been carefully reviewed, there may still be some phonetic and typographical errors. These areas are purely typographical due to imperfections of the software programs, and do not reflect any compromise in the patient's medical care. Plan discussed with: Patient, Other (RN) My Orders Orders - VIRGEN MANZO NP Procedure Category Date Status Time Furosemide Tablet PHA 06/20/24 In Process (Lasix Tablet) 10:30 Hydrocodone-Acet PHA 06/20/24 In Process 10/325mg Tab ([place] 11:30 * [employer] Operator CONS 06/20/24 Transmitted Consult Lisinopril Tablet PHA 06/20/24 In Process (Zestril Tablet) 12:45 Metoprolol Tartrate PHA 06/20/24 In Process Tablet (Lopressor Ta 22:00 Complete Blood Count LAB 06/21/24 Logged 10:01 Complete Blood Count LAB 06/22/24 Verified 04:00 Date of Service: Jun 21, 2024 Billing Provider: VIRGEN MANZO NP Common Visit Codes: [id number] INP/OBS CARE(HIGH) VIRGEN MANZO NP Jun 21, 2024 10:18
[2024-06-21 12:12] LABS: Basophils # (auto) 0.1 10 ^3/uL (0-0.2); Basophils % (auto) 0.7 % (0.0-2.0); Eosinophils # (auto) 0.6 10 ^3/uL (0-0.8); Eosinophils % (auto) 4.9 % (0.0-7.0); Hematocrit 33.6 % (36.0-46.0); Hemoglobin 11.1 g/dL (12.2-16.2); Lymphocytes % (auto) 8.8 % (10.0-50.0); Mean Corpuscular Hemoglobin 29.3 pg (28.0-32.0); Mean Corpuscular Hgb Conc. 33.1 g/dL (32.0-36.0); Mean Corpuscular Volume 88.7 fL (80.0-100.0); Monocytes # (auto) 1.1 10 ^3/uL (0-1.3); Monocytes % (auto) 9.9 % (0.0-12.0); Neutrophils # (auto) 8.7 10 ^3/uL (1.6-8.6); Neutrophils % (auto) 75.7 % (37.0-80.0); Nucleated Red Blood Cells % 0.1 %; Platelet Count (auto) 298 10^3/uL (140-450); Red Blood Cells 3.79 10^6/uL (4.0-5.20); White Blood Cell 11.5 10^3/uL (4.4-10.8)
--- NOTE | 2024-06-21 23:19 | DVHPN2 ---
Progress Note - Dictate Date Seen: Jun 21, 2024 Medical Necessity Reason Pt with a Central, PICC or Fol: Yes The following are medically ne: Jones Catheter Reason for jones catheter: Strict I&O Subjective Patient seen and examined at bedside. Remains on supplemental oxygen Overnight events reviewed. vital signs Vital Sign Date Time Temp Pulse Resp B/P (MAP) Pulse Ox O2 Delivery O2 Flow Rate FiO2 06/21/24 21:51 100 166/75 06/21/24 21:00 97.9 19 93 97.9 06/21/24 20:00 Nasal Cannula* 2 28 Total Intake and Output 06/20/24 06/20/24 06/21/24 15:00 23:00 07:00 Intake Total 300 ml 360 ml 400 ml Output Total 3600 ml Balance 300 ml 360 ml -3200 ml medications Current Medications Medications Dose Ordered Sig/Ilan Route Start Time Stop Time Status Last Admin Dose Admin Morphine Sulfate 2 mg Q30M PRN IV 06/11/24 22:00 Nitroglycerin 0.4 mg Q5MINP PRN SL 06/11/24 22:00 Ipratropium [place] 0.5 mg Q6HR NEB 06/12/24 00:00 06/21/24 18:27 0.5 MG Pantoprazole Sodium 40 mg DAILY IV 06/12/24 10:00 06/21/24 09:26 40 MG Vancomycin HCl 0 ml @ 0 mls/hr UD IV 06/12/24 08:15 Cancel Ampicillin Sodium 2 gm/Sodium Chloride 100 ml @ 100 mls/hr Q6HR IV 06/17/24 12:00 06/21/24 21:52 100 MLS/HR Acetaminophen 650 mg Q6HP PRN GT 06/17/24 12:45 Enoxaparin Sodium 40 mg DAILY SC 06/18/24 10:00 06/21/24 09:30 40 MG Budesonide 0.5 mg BID NEB 06/17/24 22:00 06/21/24 06:37 0.5 MG Ondansetron HCl 4 mg Q6HP PRN IV 06/19/24 08:00 Levalbuterol HCl 0.625 mg Q6HR NEB 06/19/24 12:00 06/21/24 18:27 0.625 MG Furosemide 20 mg DAILY PO 06/20/24 10:30 06/21/24 09:26 20 MG Acetaminophen/ Hydrocodone Bitart 1 tab Q6HP PRN PO 06/20/24 11:30 06/21/24 17:56 1 TAB Metoprolol Tartrate 50 mg BID PO 06/20/24 22:00 06/21/24 21:51 50 MG Lisinopril 20 mg DAILY PO 06/20/24 12:45 06/21/24 09:27 20 MG objective Gen.: Patient lying in bed in no apparent distress. On supplemental oxygen. Head: Normocephalic, atraumatic. Eyes: EOMI/PERRLA. Ears: Normal hearing. Normal anatomy. Neck/trachea: Trachea midline, supple. Nose: Normal external anatomy. Mouth: Moist mucous membranes. Chest: Decreased air entry bilaterally. No wheezing or rhonchi. Cardiovascular: Positive S1, positive S2. Regular rate and rhythm. Abdomen: Positive bowel sounds in all 4 quadrants. Soft, non-tender, non- distended. : Deferred. Rectal: Deferred. Skin: Warm, dry. Intact. Extremities: 2+ radial pulses bilaterally. No lower extremity edema. Neuro: Awake, alert, oriented x3. No gross motor or sensory deficits. Cranial nerves II through XII intact. Gait not assessed. laboratory and microbiology Laboratory Tests 06/21/24 10:45 06/20/24 04:42 Test 06/20/24 04:42 Range/Units Serum Glucose 74 74-106 mg/dL Assessment/Plan Impression: Acute hypoxic respiratory failure Metabolic encephalopathy Sepsis with shock Pneumonia COPD Hypertension NSTEMI type 2 secondary to sepsis Events: Remains on supplemental O2 at 2 LPM NC Taper O2 as tolerated Continue antibiotics Continue bronchodilators/Pulmicort Incentive spirometry Continue tube feeds for nutritional support Maintain euvolemia w/ Lasix QD Monitor renal function Monitor electrolytes. Supplement as necessary. PT/OT. S/p bronchoscopy on 06/17/24 with RML BAL - copious secretions cleared from RLL/LLL See separate procedure note for details. Labs and imaging reviewed. Rest of plan as noted below. Plan: s/p extubation on 06/18/24 Supplemental oxygen Titrate to keep O2 sats above 92%. Off sedation Remains hemodynamically stable. Continue bronchodilators. Continue antibiotics. Pressors if necessary for hemodynamic support Titrate to keep mean arterial pressure greater than 65 mmHg. Monitor renal function Monitor electrolytes. Supplement as necessary. Monitor ins and outs. Maintain euvolemia. GI prophylaxis. DVT prophylaxis. Prognosis: Poor given patient's multiple co-morbidities. Rest of plan per hospitalist and other consultants. Thank you, Dr. El, for allowing me to participate in this patient's care. Further recommendations will depend on the patient's clinical course. Please do not hesitate to contact me if you have any questions or concerns. This medical document was created using an electronic medical record system with [employer] dictation system. Although these documentations are being carefully reviewed, there may still be some phonetic and typographical changes. The errors are purely typographical, due to imperfection on the software program, and do not reflect any compromise in the patient's medical care. Dietary Evaluation Review Comments: 1. Consider increase TF jevity 1.2 @50ml/hr to provide 1440kcal, 67g pro, 968ml FW to meet needs when appropriate 2. Consider adjust insulin regime 3. Consider increase water flush for high Na Expected Outcomes/Goals: 1. Pt will meet >75% of estimated needs within 2-3 days Plan discussed with: Patient, Other (RN Scarlet) ZENAIDA SORIANO MD Jun 21, 2024 23:19
[2024-06-22] VITALS (21 sets, daily range): BP systolic 139–172; BP diastolic 52–78; PULSE 68–107; RESP 14–20; TEMP 97.8–98.9; O2SAT 92–100
[2024-06-22 05:38] LABS: Basophils # (auto) 0.1 10 ^3/uL (0-0.2); Basophils % (auto) 0.8 % (0.0-2.0); Eosinophils # (auto) 0.5 10 ^3/uL (0-0.8); Eosinophils % (auto) 4.7 % (0.0-7.0); Hematocrit 32.4 % (36.0-46.0); Hemoglobin 10.9 g/dL (12.2-16.2); Lymphocytes # (auto) 1.1 10 ^3/uL (0.4-5.4); Lymphocytes % (auto) 11.3 % (10.0-50.0); Mean Corpuscular Hemoglobin 29.9 pg (28.0-32.0); Mean Corpuscular Hgb Conc. 33.7 g/dL (32.0-36.0); Mean Corpuscular Volume 88.7 fL (80.0-100.0); Monocytes # (auto) 1.1 10 ^3/uL (0-1.3); Monocytes % (auto) 10.8 % (0.0-12.0); Neutrophils # (auto) 7.2 10 ^3/uL (1.6-8.6); Neutrophils % (auto) 72.4 % (37.0-80.0); Platelet Count (auto) 230 10^3/uL (140-450); Red Blood Cells 3.65 10^6/uL (4.0-5.20); Red Cell Distribution Width 14.8 % (11.8-14.3)
--- NOTE | 2024-06-22 13:50 | DVHPN2 ---
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 (Nylon Winder) Changes from previous H/P or p: No Changes General: Per HPI Objective Vitals Vital Signs Date Time Temp Pulse Resp B/P (MAP) Pulse Ox O2 Delivery O2 Flow Rate FiO2 06/22/24 12:54 98.1 68 18 151/56 (87) 95 98.1 06/22/24 11:31 Nasal Cannula* 1 24 Intake/Output Intake and Output 06/22/24 07:00 Intake Total 900 ml Output Total 550 ml Balance 350 ml Intake Oral 800 ml IV Total 100 ml Output Urine Total 550 ml General Appearance: Alert, Oriented X3, Cooperative, No acute distress, mild distress, Other HEENT: Atraumatic, PERRLA Lungs: Other Cardiovascular: Regular rate Abdomen: Soft, No tenderness, Other Genitourinary: No Apparent Abnormalities Extremities: Other Neuro: Normal speech, Cranial nerves 3-12 NL, Other Skin: Dry, Intact Psych/Mental Status: Other Medications Current Medications Medications Dose Ordered Sig/Ilan Route Start Time Stop Time Status Last Admin Dose Admin Morphine Sulfate 2 mg Q30M PRN IV 06/11/24 22:00 Nitroglycerin 0.4 mg Q5MINP PRN SL 06/11/24 22:00 Ipratropium [place] 0.5 mg Q6HR NEB 06/12/24 00:00 06/22/24 11:31 0.5 MG Pantoprazole Sodium 40 mg DAILY IV 06/12/24 10:00 06/22/24 09:31 40 MG Vancomycin HCl 0 ml @ 0 mls/hr UD IV 06/12/24 08:15 Cancel Acetaminophen 650 mg Q6HP PRN GT 06/17/24 12:45 Enoxaparin Sodium 40 mg DAILY SC 06/18/24 10:00 06/22/24 09:31 40 MG Budesonide 0.5 mg BID NEB 06/17/24 22:00 06/22/24 06:34 0.5 MG Ondansetron HCl 4 mg Q6HP PRN IV 06/19/24 08:00 Levalbuterol HCl 0.625 mg Q6HR NEB 06/19/24 12:00 06/22/24 11:31 0.625 MG Furosemide 20 mg DAILY PO 06/20/24 10:30 06/22/24 09:31 20 MG Acetaminophen/ Hydrocodone Bitart 1 tab Q6HP PRN PO 06/20/24 11:30 06/22/24 12:33 1 TAB Metoprolol Tartrate 50 mg BID PO 06/20/24 22:00 06/22/24 09:31 50 MG Lisinopril 20 mg DAILY PO 06/20/24 12:45 06/22/24 09:31 20 MG Potassium Bicarbonate 50 meq DAILY PO 06/23/24 10:00 Laboratory Results Laboratory Tests 06/20/24 04:42 06/22/24 05:04 Urinalysis Test 06/11/24 20:30 Urine Color Light-yellow (Yellow) Urine Clarity Turbid (Clear) H Urine pH 6.5 (5.0-9.0) Urine Specific [place] 1.025 (1.001-1.035) Urine Protein Trace (Negative) H Urine Ketones Negative (Negative) Urine Blood 1+ /uL (Negative) H Urine Nitrite Negative (Negative) Urine Bilirubin Negative (Negative) Urine Urobilinogen Normal mg/dL (Negative) Urine Leukocyte Esterase 2+ /uL (Negative) Urine RBC 7 /hpf (0 - 4) Urine WBC 11 /hpf (0 - 5) Urine Squamous Epithelial Cells Few /hpf (<5) Urine Bacteria Many /hpf (None Seen) H Urine Glucose Normal mg/dL (Normal) Microbiology Microbiology Date/Time Source Procedure Growth Status 06/17/24 20:34 Nose MRSA Screen - Final Complete 06/11/24 20:30 Voided Urine Urine Culture - Final Complete 06/11/24 16:40 Blood Blood Culture - Final NO GROWTH AFTER 5 DAYS OF INCUBATION. Complete Labs and/or images reviewed: Labs reviewed by me, Image(s) reviewed by me Assessment/Plan Assessment/Plan Impression: -metabolic encephalopathy -sepsis with shock -community-acquired pneumonia, probable Gram-positive/Gram-negative etiology. Possible aspiration etiology -history of COPD -primary hypertension -NSTEMI type 2 secondary to sepsis -acute hypoxic respiratory failure with mechanical ventilation -probable beta kaitlin withdrawal Plan: Events: Patient was still with deconditioning and has not ambulated. White blood cell count now normal. Deescalate to oral antibiotic therapy -increase metoprolol tartrate,add lisinopril -start Augmentin 875 mg p.o. b.i.d. -change bronchodilators to Xopenex and Atrovent. Continue Pulmicort. -stop hydrocortisone given patient was no longer in shock -PUD, DVT prophylaxis Repeat labs in a.m.. Social service consultation for home health services. -discussion made with patient and daughter regarding deconditioning and poor advancement with physical therapy. Discussed that they she consider care home rehabilitation for physical therapy instead of PT at home. At this time they state they will continue PT in the hospital and will consider care home facility. Total time spent with patient and family regarding advance care plannin minutes. Total time spent with patient discussing and formulating plan of care: 35 minutes. This medical document was created using an electronic medical record system with [employer] dictation system. Although this document has been carefully reviewed, there may still be some phonetic and typographical errors. These areas are purely typographical due to imperfections of the software programs, and do not reflect any compromise in the patient's medical care. Plan discussed with: Patient, Other My Orders Orders - VIRGEN MANZO NP Procedure Category Date Status Time Communication Order ORDERS 06/21/24 Transmitted 19:12 Transfer Orders XFER 06/22/24 Transmitted 11:30 Potassium Effervesent PHA 06/23/24 In Process Tab (Klor-Con/Ef) 10:00 Basic Metabolic Panel LAB 06/23/24 Verified 04:00 Magnesium LAB 06/23/24 Verified 04:00 Date of Service: Jun 22, 2024 Billing Provider: VIRGEN MANZO NP Common Visit Codes: [id number] INP/OBS CARE(HIGH) Secondary Visit Codes: [id number] CARE PLAN 30 MINUTES VIRGEN MANZO NP Jun 22, 2024 13:50
[2024-06-22] MEDS ORDERED: hydrALAZINE HCL 20 MG/ML VL IV PRN ×2 (16:45)
--- NOTE | 2024-06-22 18:05 | DVHPN2 ---
Progress Note - Dictate Date Seen: Jun 22, 2024 Medical Necessity Reason Pt with a Central, PICC or Fol: Yes The following are medically ne: Jones Catheter Reason for jones catheter: Strict I&O Subjective Patient seen and examined at bedside. Remains on supplemental oxygen Overnight events reviewed. vital signs Vital Sign Date Time Temp Pulse Resp B/P (MAP) Pulse Ox O2 Delivery O2 Flow Rate FiO2 06/22/24 16:05 97.8 94 18 172/78 (109) 95 97.8 06/22/24 11:31 Nasal Cannula* 1 24 Total Intake and Output 06/21/24 06/21/24 06/22/24 15:00 23:00 07:00 Intake Total 100 ml 800 ml Output Total 550 ml Balance 100 ml 250 ml medications Current Medications Medications Dose Ordered Sig/Ilan Route Start Time Stop Time Status Last Admin Dose Admin Morphine Sulfate 2 mg Q30M PRN IV 06/11/24 22:00 Nitroglycerin 0.4 mg Q5MINP PRN SL 06/11/24 22:00 Ipratropium [place] 0.5 mg Q6HR NEB 06/12/24 00:00 06/22/24 11:31 0.5 MG Pantoprazole Sodium 40 mg DAILY IV 06/12/24 10:00 06/22/24 09:31 40 MG Vancomycin HCl 0 ml @ 0 mls/hr UD IV 06/12/24 08:15 Cancel Acetaminophen 650 mg Q6HP PRN GT 06/17/24 12:45 Enoxaparin Sodium 40 mg DAILY SC 06/18/24 10:00 06/22/24 09:31 40 MG Budesonide 0.5 mg BID NEB 06/17/24 22:00 06/22/24 06:34 0.5 MG Ondansetron HCl 4 mg Q6HP PRN IV 06/19/24 08:00 Levalbuterol HCl 0.625 mg Q6HR NEB 06/19/24 12:00 06/22/24 11:31 0.625 MG Furosemide 20 mg DAILY PO 06/20/24 10:30 06/22/24 09:31 20 MG Acetaminophen/ Hydrocodone Bitart 1 tab Q6HP PRN PO 06/20/24 11:30 06/22/24 12:33 1 TAB Metoprolol Tartrate 50 mg BID PO 06/20/24 22:00 06/22/24 09:31 50 MG Lisinopril 20 mg DAILY PO 06/20/24 12:45 06/22/24 09:31 20 MG Potassium Bicarbonate 50 meq DAILY PO 06/23/24 10:00 Hydralazine HCl 10 mg Q3HPRN PRN IV 06/22/24 16:45 objective Gen.: Patient lying in bed in no apparent distress. On supplemental oxygen. Head: Normocephalic, atraumatic. Eyes: EOMI/PERRLA. Ears: Normal hearing. Normal anatomy. Neck/trachea: Trachea midline, supple. Nose: Normal external anatomy. Mouth: Moist mucous membranes. Chest: Decreased air entry bilaterally. No wheezing or rhonchi. Cardiovascular: Positive S1, positive S2. Regular rate and rhythm. Abdomen: Positive bowel sounds in all 4 quadrants. Soft, non-tender, non- distended. : Deferred. Rectal: Deferred. Skin: Warm, dry. Intact. Extremities: 2+ radial pulses bilaterally. No lower extremity edema. Neuro: Awake, alert, oriented x3. No gross motor or sensory deficits. Cranial nerves II through XII intact. Gait not assessed. laboratory and microbiology Laboratory Tests 06/22/24 05:04 06/20/24 04:42 Test 06/20/24 04:42 Range/Units Serum Glucose 74 74-106 mg/dL Assessment/Plan Impression: Acute hypoxic respiratory failure Metabolic encephalopathy Sepsis with shock Pneumonia COPD Hypertension NSTEMI type 2 secondary to sepsis Events: Remains on supplemental O2 at 1 LPM NC Taper O2 as tolerated Continue antibiotics Continue bronchodilators Off steroids Incentive spirometry Continue tube feeds for nutritional support Maintain euvolemia w/ Lasix QD Monitor renal function Monitor electrolytes. Supplement as necessary. PT/OT. Patient is out of bed to chair. S/p bronchoscopy on 06/17/24 with RML BAL - copious secretions cleared from RLL/LLL See separate procedure note for details. Labs and imaging reviewed. Rest of plan as noted below. Plan: s/p extubation on 06/18/24 Supplemental oxygen Titrate to keep O2 sats above 92%. Off sedation Remains hemodynamically stable. Continue bronchodilators. Continue antibiotics. Pressors if necessary for hemodynamic support Titrate to keep mean arterial pressure greater than 65 mmHg. Monitor renal function Monitor electrolytes. Supplement as necessary. Monitor ins and outs. Maintain euvolemia. GI prophylaxis. DVT prophylaxis. Prognosis: Poor given patient's multiple co-morbidities. Rest of plan per hospitalist and other consultants. Thank you, Dr. El, for allowing me to participate in this patient's care. Further recommendations will depend on the patient's clinical course. Please do not hesitate to contact me if you have any questions or concerns. This medical document was created using an electronic medical record system with [employer] dictation system. Although these documentations are being carefully reviewed, there may still be some phonetic and typographical changes. The errors are purely typographical, due to imperfection on the software program, and do not reflect any compromise in the patient's medical care. Dietary Evaluation Review Comments: 1. Consider increase TF jevity 1.2 @50ml/hr to provide 1440kcal, 67g pro, 968ml FW to meet needs when appropriate 2. Consider adjust insulin regime 3. Consider increase water flush for high Na Expected Outcomes/Goals: 1. Pt will meet >75% of estimated needs within 2-3 days Plan discussed with: Patient, Other (SONNY Holman) ZENAIDA SORIANO MD Jun 22, 2024 18:05
[2024-06-23] VITALS (18 sets, daily range): BP systolic 136–173; BP diastolic 50–76; PULSE 65–116; RESP 16–19; TEMP 97.8–98.5; O2SAT 90–100
[2024-06-23 06:20] LABS: Chloride 102 mmol/L (98-107); Sodium 139 mmol/L (136-145)
[2024-06-23 06:21] LABS: Anion Gap 12 (5-15); Carbon Dioxide 25 mmol/L (20-31)
[2024-06-23 06:22] LABS: Calcium 9.2 mg/dL (8.7-10.4)
[2024-06-23 06:26] LABS: BUN/Creatinine Ratio 13.8 (10.0-20.0); Glucose 78 mg/dL (74-106)
[2024-06-23 06:39] LABS: Blood Urea Nitrogen 9 mg/dL (9-23); Magnesium 1.3 mg/dL (1.6-2.6); Potassium 3.2 mmol/L (3.5-5.1)
[2024-06-23] MEDS: MAGNESIUM SULFATE 1GM/100ML 100 ML IV SCH (09:51)
[2024-06-23] MEDS: POTASSIUM EFFERVESENT TAB 25 MEQ PO ONE (09:51)
[2024-06-23] MEDS: LISINOPRIL 20 MG TAB PO SCH (09:52)
[2024-06-23] MEDS ORDERED: POTASSIUM EFFERVESENT TAB 25 MEQ PO SCH (10:00)
[2024-06-23] MEDS: POTASSIUM EFFERVESENT TAB 25 MEQ PO SCH (11:28)
--- NOTE | 2024-06-23 16:15 | DVHPN2 ---
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) Changes from previous H/P or p: No Changes General: Per HPI Objective Vitals Vital Signs Date Time Temp Pulse Resp B/P (MAP) Pulse Ox O2 Delivery O2 Flow Rate FiO2 06/23/24 12:54 98.1 83 18 136/53 (80) 90 98.1 06/23/24 12:26 Room Air 0.0 06/23/24 12:26 21 Intake/Output Intake and Output 06/23/24 07:00 Intake Total 1324 ml Output Total 2250 ml Balance -926 ml Intake Oral 1324 ml Output Urine Total 2250 ml # Voids 4 General Appearance: Alert, Oriented X3, Cooperative, No acute distress, mild distress, Other HEENT: Atraumatic, PERRLA Lungs: Other Cardiovascular: Regular rate Abdomen: Soft, No tenderness, Other Genitourinary: No Apparent Abnormalities Extremities: Other Neuro: Normal speech, Cranial nerves 3-12 NL, Other Skin: Dry, Intact Psych/Mental Status: Other Medications Current Medications Medications Dose Ordered Sig/Ilan Route Start Time Stop Time Status Last Admin Dose Admin Morphine Sulfate 2 mg Q30M PRN IV 06/11/24 22:00 Nitroglycerin 0.4 mg Q5MINP PRN SL 06/11/24 22:00 Ipratropium [place] 0.5 mg Q6HR NEB 06/12/24 00:00 06/23/24 12:29 0.5 MG Pantoprazole Sodium 40 mg DAILY IV 06/12/24 10:00 06/23/24 09:52 40 MG Vancomycin HCl 0 ml @ 0 mls/hr UD IV 06/12/24 08:15 Cancel Acetaminophen 650 mg Q6HP PRN GT 06/17/24 12:45 Enoxaparin Sodium 40 mg DAILY SC 06/18/24 10:00 06/23/24 09:53 40 MG Budesonide 0.5 mg BID NEB 06/17/24 22:00 06/23/24 06:59 0.5 MG Ondansetron HCl 4 mg Q6HP PRN IV 06/19/24 08:00 Levalbuterol HCl 0.625 mg Q6HR NEB 06/19/24 12:00 06/23/24 12:29 0.625 MG Acetaminophen/ Hydrocodone Bitart 1 tab Q6HP PRN PO 06/20/24 11:30 06/23/24 15:27 1 TAB Metoprolol Tartrate 50 mg BID PO 06/20/24 22:00 06/23/24 09:52 50 MG Hydralazine HCl 10 mg Q3HPRN PRN IV 06/22/24 16:45 Lisinopril 40 mg DAILY PO 06/23/24 10:00 06/23/24 09:52 40 MG Potassium Bicarbonate 50 meq DAILY PO 06/23/24 12:00 06/23/24 11:28 50 MEQ Laboratory Results Laboratory Tests 06/22/24 05:04 06/23/24 05:18 Chemistry Test 06/23/24 05:18 Calcium Level 9.2 mg/dL (8.7-10.4) Magnesium Level 1.3 mg/dL (1.6-2.6) L Urinalysis Test 06/11/24 20:30 Urine Color Light-yellow (Yellow) Urine Clarity Turbid (Clear) H Urine pH 6.5 (5.0-9.0) Urine Specific [place] 1.025 (1.001-1.035) Urine Protein Trace (Negative) H Urine Ketones Negative (Negative) Urine Blood 1+ /uL (Negative) H Urine Nitrite Negative (Negative) Urine Bilirubin Negative (Negative) Urine Urobilinogen Normal mg/dL (Negative) Urine Leukocyte Esterase 2+ /uL (Negative) Urine RBC 7 /hpf (0 - 4) Urine WBC 11 /hpf (0 - 5) Urine Squamous Epithelial Cells Few /hpf (<5) Urine Bacteria Many /hpf (None Seen) H Urine Glucose Normal mg/dL (Normal) Microbiology Microbiology Date/Time Source Procedure Growth Status 06/17/24 20:34 Nose MRSA Screen - Final Complete 06/11/24 20:30 Voided Urine Urine Culture - Final Complete 06/11/24 16:40 Blood Blood Culture - Final NO GROWTH AFTER 5 DAYS OF INCUBATION. Complete Labs and/or images reviewed: Labs reviewed by me, Image(s) reviewed by me Assessment/Plan Assessment/Plan Impression: -metabolic encephalopathy -sepsis with shock -community-acquired pneumonia, probable Gram-positive/Gram-negative etiology. Possible aspiration etiology -history of COPD -primary hypertension -NSTEMI type 2 secondary to sepsis -acute hypoxic respiratory failure with mechanical ventilation -probable beta kaitlin withdrawal -hypokalemia -hypomagnesemia Plan: Events: Patient improved with ambulation today. States that she was able to walk with some assistance to the bathroom. Continue current treatment plan with physical therapy, plans for DC with home health services and PT home. K and Mag replete. -increase metoprolol tartrate,add lisinopril -start Augmentin 875 mg p.o. b.i.d. -change bronchodilators to Xopenex and Atrovent. Continue Pulmicort. -stop hydrocortisone given patient was no longer in shock -PUD, DVT prophylaxis Repeat labs in a.m.. Social service consultation for home health services. Total time spent with patient discussing and formulating plan of care: 35 minutes. This medical document was created using an electronic medical record system with [employer] dictation system. Although this document has been carefully reviewed, there may still be some phonetic and typographical errors. These areas are purely typographical due to imperfections of the software programs, and do not reflect any compromise in the patient's medical care. Plan discussed with: Patient, Other (RN) My Orders Orders - VIRGEN MANZO NP Procedure Category Date Status Time Hydralazine Injection PHA 06/22/24 In Process (Apresoline Inject 16:45 Lisinopril Tablet PHA 06/23/24 In Process (Zestril Tablet) 10:00 Potassium Effervesent PHA 06/23/24 In Process Tab (Klor-Con/Ef) 12:00 Potassium LAB 06/23/24 Verified 20:00 Magnesium LAB 06/23/24 Verified 20:00 Date of Service: Jun 23, 2024 Billing Provider: VIRGEN MANZO NP Common Visit Codes: [id number] INP/OBS CARE(HIGH) VIRGEN MANZO NP Jun 23, 2024 16:15
[2024-06-23 20:13] LABS: Potassium 3.7 mmol/L (3.5-5.1)
[2024-06-23 20:20] LABS: Magnesium 2.1 mg/dL (1.6-2.6)
--- NOTE | 2024-06-23 23:03 | DVHPN2 ---
Progress Note - Dictate Date Seen: Jun 23, 2024 Medical Necessity Reason Pt with a Central, PICC or Fol: Yes The following are medically ne: Jones Catheter Reason for jones catheter: Strict I&O Subjective Patient seen and examined at bedside. Breathing on room air. Overnight events reviewed. vital signs Vital Sign Date Time Temp Pulse Resp B/P (MAP) Pulse Ox O2 Delivery O2 Flow Rate FiO2 06/23/24 21:37 140/52 06/23/24 21:00 98.5 116 18 93 98.5 06/23/24 20:55 21 06/23/24 19:00 Room Air 0.0 Total Intake and Output 06/22/24 06/22/24 06/23/24 15:00 23:00 07:00 Intake Total 700 ml 624 ml Output Total 2250 ml Balance -1550 ml 624 ml medications Current Medications Medications Dose Ordered Sig/Ilan Route Start Time Stop Time Status Last Admin Dose Admin Morphine Sulfate 2 mg Q30M PRN IV 06/11/24 22:00 Nitroglycerin 0.4 mg Q5MINP PRN SL 06/11/24 22:00 Ipratropium [place] 0.5 mg Q6HR NEB 06/12/24 00:00 06/23/24 18:00 0.5 MG Pantoprazole Sodium 40 mg DAILY IV 06/12/24 10:00 06/23/24 09:52 40 MG Vancomycin HCl 0 ml @ 0 mls/hr UD IV 06/12/24 08:15 Cancel Acetaminophen 650 mg Q6HP PRN GT 06/17/24 12:45 Enoxaparin Sodium 40 mg DAILY SC 06/18/24 10:00 06/23/24 09:53 40 MG Budesonide 0.5 mg BID NEB 06/17/24 22:00 06/23/24 19:31 0.5 MG Ondansetron HCl 4 mg Q6HP PRN IV 06/19/24 08:00 Levalbuterol HCl 0.625 mg Q6HR NEB 06/19/24 12:00 06/23/24 18:00 0.625 MG Acetaminophen/ Hydrocodone Bitart 1 tab Q6HP PRN PO 06/20/24 11:30 06/23/24 21:37 1 TAB Metoprolol Tartrate 50 mg BID PO 06/20/24 22:00 06/23/24 21:37 50 MG Hydralazine HCl 10 mg Q3HPRN PRN IV 06/22/24 16:45 Lisinopril 40 mg DAILY PO 06/23/24 10:00 06/23/24 09:52 40 MG Potassium Bicarbonate 50 meq DAILY PO 06/23/24 12:00 06/23/24 11:28 50 MEQ objective Gen.: Patient lying in bed in no apparent distress. On room air. Head: Normocephalic, atraumatic. Eyes: EOMI/PERRLA. Ears: Normal hearing. Normal anatomy. Neck/trachea: Trachea midline, supple. Nose: Normal external anatomy. Mouth: Moist mucous membranes. Chest: Decreased air entry bilaterally. No wheezing or rhonchi. Cardiovascular: Positive S1, positive S2. Regular rate and rhythm. Abdomen: Positive bowel sounds in all 4 quadrants. Soft, non-tender, non- distended. : Deferred. Rectal: Deferred. Skin: Warm, dry. Intact. Extremities: 2+ radial pulses bilaterally. No lower extremity edema. Neuro: Awake, alert, oriented x3. No gross motor or sensory deficits. Cranial nerves II through XII intact. Gait not assessed. laboratory and microbiology Laboratory Tests 06/23/24 20:01 06/23/24 05:18 06/22/24 05:04 Test 06/23/24 05:18 Range/Units Serum Glucose 78 74-106 mg/dL Assessment/Plan Impression: Acute hypoxic respiratory failure Metabolic encephalopathy Sepsis with shock Pneumonia COPD Hypertension NSTEMI type 2 secondary to sepsis Events: On room air. Supplemental oxygen PRN. Improved O2 requirements Continue bronchodilators/Pulmicort Completed antibiotics Off steroids Incentive spirometry Tube feeds for nutritional support Stopped Lasix Protonix for GI prophylaxis PT/OT. Patient is ambulating. K, mag supplementation Monitor renal function S/p bronchoscopy on 06/17/24 with RML BAL - copious secretions cleared from RLL/LLL See separate procedure note for details. Labs and imaging reviewed. Rest of plan as noted below. Plan: s/p extubation on 06/18/24 Supplemental oxygen PRN Titrate to keep O2 sats above 92%. Off sedation Remains hemodynamically stable. Continue bronchodilators. Completed antibiotics. Pressors if necessary for hemodynamic support Titrate to keep mean arterial pressure greater than 65 mmHg. Monitor renal function Monitor electrolytes. Supplement as necessary. Monitor ins and outs. GI prophylaxis. DVT prophylaxis. Prognosis: Poor given patient's multiple co-morbidities. Rest of plan per hospitalist and other consultants. Thank you, Dr. El, for allowing me to participate in this patient's care. Further recommendations will depend on the patient's clinical course. Please do not hesitate to contact me if you have any questions or concerns. This medical document was created using an electronic medical record system with [employer] dictation system. Although these documentations are being carefully reviewed, there may still be some phonetic and typographical changes. The errors are purely typographical, due to imperfection on the software program, and do not reflect any compromise in the patient's medical care. Dietary Evaluation Review Comments: 1. Consider increase TF jevity 1.2 @50ml/hr to provide 1440kcal, 67g pro, 968ml FW to meet needs when appropriate 2. Consider adjust insulin regime 3. Consider increase water flush for high Na Expected Outcomes/Goals: 1. Pt will meet >75% of estimated needs within 2-3 days Plan discussed with: Patient, Other (SONNY Gong) ZENAIDA SORIANO MD Jun 23, 2024 23:03
[2024-06-24] VITALS (11 sets, daily range): BP systolic 130–168; BP diastolic 51–76; PULSE 63–107; RESP 16–20; TEMP 97.9–98.9; O2SAT 92–100
[2024-06-24] MEDS: FUROSEMIDE 20 MG/2 ML VIAL IV ONE (13:15)
[2024-06-24] MEDS ORDERED: AUG875T PO (13:48)
[2024-06-24] MEDS ORDERED: HYDR25TA4 PO (13:48)
[2024-06-24] MEDS ORDERED: MET50T PO (13:48)
--- NOTE | 2024-06-24 15:09 | DVHDS2 ---
Discharge Summary Date of Admission Jun 11, 2024 at 21:46 Date of Discharge: Jun 24, 2024 Admitting Diagnosis Acute respiratory failure Labs/Diagnostic Data: Laboratory Results Test 06/23/24 20:01 06/23/24 05:18 06/22/24 05:04 06/20/24 04:42 Potassium Level 3.7 mmol/L (3.5-5.1) Magnesium Level 2.1 mg/dL (1.6-2.6) Sodium Level 139 mmol/L (136-145) Chloride Level 102 mmol/L (98-107) Carbon Dioxide Level 25 mmol/L (20-31) Anion Gap 12 (5-15) Blood Urea Nitrogen 9 mg/dL (9-23) Creatinine 0.65 mg/dL (0.550-1.02) Glomerular Filtration Rate Calc 96 mL/min (>90) BUN/Creatinine Ratio 13.8 (10.0-20.0) Serum Glucose 78 mg/dL (74-106) Calcium Level 9.2 mg/dL (8.7-10.4) White Blood Count 10.0 10^3/uL (4.4-10.8) Red Blood Count 3.65 10^6/uL (4.0-5.20) Hemoglobin 10.9 g/dL (12.2-16.2) Hematocrit 32.4 % (36.0-46.0) Mean Corpuscular Volume 88.7 fL (80.0-100.0) Mean Corpuscular Hemoglobin 29.9 pg (28.0-32.0) Mean Corpuscular Hemoglobin Concent 33.7 g/dL (32.0-36.0) Red Cell Distribution Width 14.8 % (11.8-14.3) Platelet Count 230 10^3/uL (140-450) Mean Platelet Volume 8.3 fL (6.9-10.8) Neutrophils (%) (Auto) 72.4 % (37.0-80.0) Lymphocytes (%) (Auto) 11.3 % (10.0-50.0) Monocytes (%) (Auto) 10.8 % (0.0-12.0) Eosinophils (%) (Auto) 4.7 % (0.0-7.0) Basophils (%) (Auto) 0.8 % (0.0-2.0) Neutrophils # (Auto) 7.2 10 ^3/uL (1.6-8.6) Lymphocytes # (Auto) 1.1 10 ^3/uL (0.4-5.4) Monocytes # (Auto) 1.1 10 ^3/uL (0-1.3) Eosinophils # (Auto) 0.5 10 ^3/uL (0-0.8) Basophils # (Auto) 0.1 10 ^3/uL (0-0.2) Nucleated Red Blood Cells 0.0 % Differential Total Cells Counted 100.0 (100) Neutrophils % (Manual) 69 (37.0-80.0) Band Neutrophils % (Manual) 5 Lymphocytes % (Manual) 13 (10.0-50.0) Monocytes % (Manual) 10 (0-12) Eosinophils % (Manual) 3 (0-7) Basophils % (Manual) 0 (0.0-2.0) Metamyelocytes % (manual) 0 Myelocytes % (Manual) 0 Promyelocytes % (Manual) 0 Blast Cells % (Manual) 0 Reactive Lymphocytes 0 Platelet Estimate Adequate Anisocytosis (manual) Slight Test 06/19/24 05:00 06/18/24 14:31 06/18/24 13:07 06/18/24 03:31 Phosphorus Level 3.6 mg/dL (2.4-5.1) Vancomycin Level Trough 10.1 ug/mL (5-10) Blood Gas Specimen Type Arterial Blood Gas Sample Site Left radial Blood Gas Patient Temperature 37.0 Arterial Blood Date Drawn [id number] Arterial Blood pH 7.474 (7.350-7.450) Arterial Blood Partial Pressure CO2 32.9 mmHg (32.0-45.0) Arterial Blood Partial Pressure O2 81.8 mmHg (83.0-108.0) Arterial Blood HCO3 23.6 mmol/L (21.0-28.0) Arterial Blood Oxygen Saturation 95.8 % (94.0-98.0) Arterial Blood Base Excess 0.5 mmol/L (-2.0-3.0) Arterial Blood Oxyhemoglobin 95.0 % (94.0-98.0) Arterial Blood Carboxyhemoglobin 0.7 % (0.5-1.5) Arterial Blood Methemoglobin 0.1 % (0.0-1.5) Glenn Test Modified Blood Gas Total Hemoglobin 11.70 g/dL (12.0-16.0) Blood Gas Modality Vent - cpap Blood Gas Spontaneous Rate 26 FiO2 % 30.0 Blood Gas Spontaneous Tidal Volume 430 Blood Gas Pressure Support 8 Blood Gas PEEP or CPAP 5.0 Blood Gas Set Respiration Rate 22.0 Blood Gas Tidal Volume 450.0 Test 06/17/24 08:03 06/15/24 17:43 06/15/24 06:13 06/12/24 10:50 Red Blood Cell Morphology Normal Total Bilirubin 0.4 mg/dL (0.2-1.0) Aspartate Amino Transferase (AST) 14 U/L (13-40) Alanine Aminotransferase (ALT) 14 U/L (7-40) Alkaline Phosphatase 62 U/L (46-116) Total Protein 5.3 g/dL (5.7-8.2) Albumin 3.2 g/dL (3.2-4.8) Troponin I High Sensitivity 9 ng/L (</=34) Specimen Drawn By POC Glucose 114 mg/dl (70-106) Test 06/12/24 10:28 06/12/24 08:14 06/12/24 04:31 06/12/24 00:00 Blood Gas Critical Value Read Back yes Blood Gas Notified Whom wendy Manzo Blood Gas Notified Time [id number] Blood Gas Notified By Influenza Type A Antigen Negative (Negative) Influenza Type B Antigen Negative (Negative) Lactic Acid Level 1.4 mmol/L (0.4-2.0) SARS-CoV-2 Antigen (Rapid) Negative (NEGATIVE) Test 06/11/24 22:36 06/11/24 20:30 06/11/24 17:23 06/11/24 16:37 Ammonia 24 umol/L (11-32) Plasma/Serum Blood Alcohol < 3.0 mg/dL (<10) Urine Color Light-yellow (Yellow) Urine Clarity Turbid (Clear) Urine pH 6.5 (5.0-9.0) Urine Specific [place] 1.025 (1.001-1.035) Urine Protein Trace (Negative) Urine Ketones Negative (Negative) Urine Blood 1+ /uL (Negative) Urine Nitrite Negative (Negative) Urine Bilirubin Negative (Negative) Urine Urobilinogen Normal mg/dL (Negative) Urine Leukocyte Esterase 2+ /uL (Negative) Urine RBC 7 /hpf (0 - 4) Urine WBC 11 /hpf (0 - 5) Urine Squamous Epithelial Cells Few /hpf (<5) Urine Bacteria Many /hpf (None Seen) Urine Glucose Normal mg/dL (Normal) Urine Opiates Screen Pos (NEGATIVE) Urine Fentanyl Screen Neg (NEGATIVE) Urine Barbiturates Screen Neg (NEGATIVE) Urine Phencyclidine Screen Neg (NEGATIVE) Urine Amphetamines Screen Neg (NEGATIVE) Urine Benzodiazepines Screen Neg (NEGATIVE) Urine Cocaine Screen Neg (NEGATIVE) Urine Cannabinoids Screen Neg (NEGATIVE) B-Type Natriuretic Peptide 75.18 pg/mL (0-100) Hemoglobin A1c 5.4 % A1C (<5.7) Creatine Kinase 50 U/L (34-145) Lipase 25 U/L (12-53) Other Laboratory Tests 06/23/24 20:01 06/23/24 05:18 06/22/24 05:04 Brief Hx & Hospital Course: History of Present Illness This is a 69-year-old female brought in ED via EMS for altered level of consciousness. Per EMS, pt family found pt on the floor in restroom for unknown time and called EMS. EMS arrived on scene and pt was alert and oriented x 2 but slow to answering questions and able to follow simple commands. According to the daughter she was out of home for 2 days and the patient was alone in the home and when she gets back from work today she saw her mother felt on the floor, very weak and not able to stand up and they called the EMS. In the ED the patient was tachycardic, tachypneic desaturating on 6 L of oxygen. The patient was then intubated and admitted in the ICU status. Course of hospitalization: Patient was in septic shock requiring vasopressor therapy, with empiric antibiotics started on the patient. Patient gradually improved, subsequently being weaned off of mechanical ventilation as well as vasopressor therapy. Sputum culture was positive for Streptococcus group a, with antibiotics being deescalated to cefepime, which was then switched to p.o. Augmentin. Patient has been ambulating with physical therapy. She has been weaned off of O2 supplementation. While in the hospital she was found to have probable beta- kaitlin withdrawal, in addition to accelerated hypotension, both which were corrected with titration of metoprolol tartrate and losartan. Patient was agreeable to be discharged home with home health services and physical therapy. She will be continued on antibiotic therapy, provided DME in the form of a walker as instructed to follow up with her PCP in 1-2 weeks. Patient was daughter who was bedside is also agreeable with discharge plan. All questions answered. Physical examination General: Alert and Oriented x3. No acute distress. Well-nourished. Eyes: EOMI. Anicteric. HENT: Moist mucous membranes. Lungs: Clear to auscultation bilaterally. No accessory muscle use. Cardiovascular: Regular rate and rhythm. No murmur. No JVD. Abdomen: Soft, non-tender and non-distended. No palpable masses. Extremities: No edema. Non-tender. Skin: No rashes or lesions. Warm. Neurologic: No focal neurological deficits. CN II-XII grossly intact, but not individually tested. Psychiatric: Cooperative. Appropriate mood and affect. Total time spent with patient discussing and formulating plan of care: 35 minutes. This medical document was created using an electronic medical record system with [employer] dictation system. Although this document has been carefully reviewed, there may still be some phonetic and typographical errors. These areas are purely typographical due to imperfections of the software programs, and do not reflect any compromise in the patient's medical care. Consults/Reason for consult Pulmonology: Respiratory failure Condition at Discharge: Fair Final Diagnosis/Problems List Acute hypoxic respiratory failure Secondary Diagnosis: -metabolic encephalopathy -sepsis with shock -community-acquired pneumonia, probable Gram-positive/Gram-negative etiology. Possible aspiration etiology -history of COPD -primary hypertension -NSTEMI type 2 secondary to sepsis -acute hypoxic respiratory failure with mechanical ventilation -probable beta kaitlin withdrawal -hypokalemia -hypomagnesemia Discharge Disposition: Home with Health Services Discharge Instruct/Medications Diet: Cardiac 2g Na,low cholest Activity: No Restrictions, As Tolerated Activity comment: Use walker Follow Up/Referral: PCP in 1-2 weeks Medications: refer to medication reconciliation form 36 Discharge Statement: "Patient was advised to return to the ER or call 911 if any headaches, dizziness, shortness of breath, chest pain, abdominal pain, bleeding, fevers, or worsening of medical condition. Patient was counseled about treatment plan, medications, possible side effects, patientverbalized understanding. All questions were answered to the best of my ability. This discharge took greater then 30 minutes in planning, reviewing documentation, counseling the patient, and discussing with other team members." DME: Diagnosis: Acute Respiratory failure, secondary to pna ASSESSMENT ASSESSMENT Assessment Acute hypoxic respiratory failure Date of Service: Jun 24, 2024 Billing Provider: VIRGEN MANZO NP Common Visit Codes: 12531-BUY/OBS DISCH DAY >30min VIRGEN MANZO NP Jun 24, 2024 15:09
[2024-06-24] MEDS: FUROSEMIDE 20 MG TAB PO ONE (15:59)
--- NOTE | 2024-06-24 23:11 | DVHPN2 ---
Progress Note - Dictate Date Seen: Jun 24, 2024 Medical Necessity Reason Pt with a Central, PICC or Fol: Yes The following are medically ne: Jones Catheter Reason for jones catheter: Strict I&O Subjective Patient seen and examined at bedside. Breathing on room air. Overnight events reviewed. vital signs Vital Sign Date Time Temp Pulse Resp B/P (MAP) Pulse Ox O2 Delivery O2 Flow Rate FiO2 06/24/24 15:59 157/73 06/24/24 13:00 98.1 75 19 93 98.1 06/24/24 12:48 Room Air 0.0 06/24/24 12:48 21 Total Intake and Output 06/23/24 06/23/24 06/24/24 15:00 23:00 07:00 Intake Total 300 ml 558 ml 650 ml Output Total 550 ml Balance 300 ml 558 ml 100 ml medications Current Medications Medications Dose Ordered Sig/Ilan Route Start Time Stop Time Status Last Admin Dose Admin Vancomycin HCl 0 ml @ 0 mls/hr UD IV 06/12/24 08:15 Cancel objective Gen.: Patient lying in bed in no apparent distress. On room air. Head: Normocephalic, atraumatic. Eyes: EOMI/PERRLA. Ears: Normal hearing. Normal anatomy. Neck/trachea: Trachea midline, supple. Nose: Normal external anatomy. Mouth: Moist mucous membranes. Chest: Decreased air entry bilaterally. No wheezing or rhonchi. Cardiovascular: Positive S1, positive S2. Regular rate and rhythm. Abdomen: Positive bowel sounds in all 4 quadrants. Soft, non-tender, non- distended. : Deferred. Rectal: Deferred. Skin: Warm, dry. Intact. Extremities: 2+ radial pulses bilaterally. No lower extremity edema. Neuro: Awake, alert, oriented x3. No gross motor or sensory deficits. Cranial nerves II through XII intact. Gait not assessed. laboratory and microbiology Laboratory Tests 06/23/24 20:01 06/23/24 05:18 06/22/24 05:04 Test 06/23/24 05:18 Range/Units Serum Glucose 78 74-106 mg/dL Assessment/Plan Impression: Acute hypoxic respiratory failure Metabolic encephalopathy Sepsis with shock Pneumonia COPD Hypertension NSTEMI type 2 secondary to sepsis Events: On room air. Supplemental oxygen PRN. Continue bronchodilators PRN Incentive spirometry Tube feeds for nutritional support Lasix 20 MG IVP x1 given for BLE edema Monitor renal function Monitor electrolytes. Supplement as necessary. Potassium supplementation Protonix for GI prophylaxis PT/OT. Disposition per hospitalist. S/p bronchoscopy on 06/17/24 with RML BAL - copious secretions cleared from RLL/LLL See separate procedure note for details. Labs and imaging reviewed. Rest of plan as noted below. Plan: s/p extubation on 06/18/24 Supplemental oxygen PRN Titrate to keep O2 sats above 92%. Off sedation Remains hemodynamically stable. Continue bronchodilators. Completed antibiotics Off steroids Pressors if necessary for hemodynamic support Titrate to keep mean arterial pressure greater than 65 mmHg. Monitor renal function Monitor electrolytes. Supplement as necessary. Monitor ins and outs. GI prophylaxis. DVT prophylaxis. Prognosis: Poor given patient's multiple co-morbidities. Rest of plan per hospitalist and other consultants. Thank you, Dr. El, for allowing me to participate in this patient's care. Further recommendations will depend on the patient's clinical course. Please do not hesitate to contact me if you have any questions or concerns. This medical document was created using an electronic medical record system with [employer] dictation system. Although these documentations are being carefully reviewed, there may still be some phonetic and typographical changes. The errors are purely typographical, due to imperfection on the software program, and do not reflect any compromise in the patient's medical care. Dietary Evaluation Review Comments: 1. Consider increase TF jevity 1.2 @50ml/hr to provide 1440kcal, 67g pro, 968ml FW to meet needs when appropriate 2. Consider adjust insulin regime 3. Consider increase water flush for high Na Expected Outcomes/Goals: 1. Pt will meet >75% of estimated needs within 2-3 days Plan discussed with: Patient, Other (SONNY Gong) ZENAIDA SORIANO MD Jun 24, 2024 23:11
== END 2024-06-24 17:15 | disposition home health service (06) | DRG 870 ==
LOC: EDBD 15:52 → ER 15:52 → OVERFLOW 21:46 → TELE 21:47 → ICU CENTRL 06-17 19:52 → TELE-WESTW 06-20 05:20 → TELE-EAST 06-20 09:19 → EAST 06-22 13:08
PROVIDERS: ADMIT Nurse Practitioner Acute Care; ATTEND Nurse Practitioner Acute Care
PROC: 02HV33Z Insertion of Infusion Device into Superior Vena Cava, Percutaneous Approach (ICD-10-PCS; 2024-06-11)
PROC: 5A1955Z Respiratory Ventilation, Greater than 96 Consecutive Hours (ICD-10-PCS; principal; 2024-06-12)
PROC: 0BH17EZ Insertion of Endotracheal Airway into Trachea, Via Natural or Artificial Opening (ICD-10-PCS; 2024-06-12)
PROC: 0B9D8ZX Drainage of Right Middle Lung Lobe, Via Natural or Artificial Opening Endoscopic, Diagnostic (ICD-10-PCS; 2024-06-17)
PROC: 0BC78ZZ Extirpation of Matter from Left Main Bronchus, Via Natural or Artificial Opening Endoscopic (ICD-10-PCS; 2024-06-17)
DX: A41.9 Sepsis, unspecified organism (principal); G93.41 Metabolic encephalopathy; I21.A1 Myocardial infarction type 2; J96.01 Acute respiratory failure with hypoxia; R65.21 Severe sepsis with septic shock; J69.0 Pneumonitis due to inhalation of food and vomit; J15.69 Pneumonia due to other Gram-negative bacteria; J15.9 Unspecified bacterial pneumonia; E87.0 Hyperosmolality and hypernatremia; E87.3 Alkalosis; N13.6 Pyonephrosis; J44.0 Chronic obstructive pulmonary disease with (acute) lower respiratory infection; E87.6 Hypokalemia; I10 Essential (primary) hypertension; M81.0 Age-related osteoporosis without current pathological fracture; I95.9 Hypotension, unspecified; E83.42 Hypomagnesemia; Z79.899 Other long term (current) drug therapy
CPT/HCPCS: 36415; 36600; 70450; 71045; 71260; 72125; 74177; 80048; 80053; 80202; 80307; 80320; 81001; 82140; 82550; 82805; 82962; 83036; 83605; 83690; 83735; 83880; 84100; 84132; 84484; 85007; 85025; 85027; 87040; 87070; 87081; 87086; 87205; 87426; 87804; 92610; 93005; 93306; 94002; 94003; 94640; 96365; 96367; 96368; 97110; 97116; 97163; 97530; 99291; 99292; G0378; J0131; J0692; J1885; J2185; J2405; J2470; J2543; J2704; J3480; J7060

== ENCOUNTER 2025-04-03 21:11 | Inpatient (IN) | payer OTHER, MEDICARE, MEDICAID ==
[~2025-04-03] VITALS: Ht 160 cm; Wt 65.9 kg
[~2025-04-03 21:11] MED LIST changes: -ATEN25TA PO; +AUG875T PO; -HYDR-4072 PO; +HYDR25TA4 PO; -LIDO1PAD55 TOP; +MET50T PO
--- NOTE | 2025-04-03 21:46 | ED.PDOC ---
History of Present Illness HPI Comments 69 year old female came to ER due to weakness. Patient has history of asthma, COPD, arthritis, neuropathy. For the past month, patient has loss of appetite, nausea and diffuse abdominal pain/ distention. Noted generalized weakness, and constipation, having bowel movements every 3 days. REVIEW OF SYSTEMS: General: No fever, no chills, or fatigue HEENT: No sore throat, no earache, no congestion, no neck pain. Cardiac: No chest pain. No palpitations. No near syncope Lungs: No shortness of breath, no cough. GI: (+) nausea, no vomiting, no diarrhea, no constipation, (+) abdominal pain (+) loss of appetite : No dysuria, frequency, or urgency. No hematuria. Musculoskeletal: No joint pain , no joint swelling, no extremity edema. Skin: No rash, no itching. Neuro: No headache, no dizziness, (+) weakness PHYSICAL EXAM: General: Awake, alert and oriented. No acute distress. Skin: Skin in warm, dry and intact. Appropriate color for ethnicity. HEENT: The head is normocephalic and atraumatic. Conjunctivae are clear without exudates or hemorrhage. Sclera is non-icteric. EOM are intact. No signs of nystagmus. Eyelids are normal in appearance without swelling or lesions. Oral mucosa is pink and moist Neck: The neck is supple with normal range of motion. No JVD. Cardiac: Heart rate and rhythm are normal. No murmurs, gallops, or rubs are auscultated. Respiratory: No signs of respiratory distress. Lung sounds are clear in all lobes bilaterally without rales, rhonchi, or wheezes. Abdominal: Abdomen is soft, non-tender without distention, guarding or rigidity. Bowel sounds are present and normoactive in all four quadrants. Extremities: Upper and lower extremities are atraumatic in appearance without deformity or edema. Neurological: The patient is awake, alert and oriented to person, place, and time with normal speech. Speech is clear. There is no facial asymmetry. Psychiatric: Appropriate mood and affect. Good judgement and insight. Chief Complaint: General Weakness Time Seen by MD: 21:46 Primary Care Provider: UNKNOWN Reviewed Notes: Nurses Notes Allergies: Coded Allergies: NO KNOWN ALLERGIES (Unverified , 06/11/24) Home Meds Active Scripts Amoxicillin & Pot Clavulanate (AUGMENTIN TABLET) 875 Mg Tb, 875 MG PO BID for 7 Days, #14 TAB Prov:VIRGEN MANZO DEMAND MANAGER 06/24/24 Metoprolol Tartrate (LOPRESSOR TABLET) 50 Mg Tb, 50 MG PO BID for 30 Days, #60 TAB Prov:VIRGEN MANZO DEMAND MANAGER 06/24/24 Hydrochlorothiazide (Hydrochlorothiazide) 25 Mg Tab, 1 TAB PO QAM for 90 Days, #90 TAB TAKE ONE TABLET BY MOUTH EVERY DAY IN THE MORNING Prov:VIRGEN MANZO DEMAND MANAGER 06/24/24 Reported Medications Celecoxib (Celecoxib) 100 Mg Cap, 1 CAP PO DAILY for 90 Days, #90 TAKE ONE CAPSULE BY MOUTH ONE TIME DAILY WITH FOOD 06/12/24 Nejinwjdpaq-Wmqnthnsxxzb-Nuaiz (Trelegy Ellipta 200-62.5-25 Mcg/INH) 1 Aer Aer, 1 PUFF PO DAILY for 90 Days, #180 INHALE ONE PUFF BY MOUTH ONE TIME DAILY 06/12/24 Pantoprazole Sodium Sesquihydr (Pantoprazole Sodium) 40 Mg Tab, 1 TAB PO DAILY for 90 Days, #90 06/12/24 Losartan Potassium (Losartan Potassium) 50 Mg Tab, 1 TAB PO DAILY for 60 Days, #60 06/12/24 Gabapentin (Gabapentin) 400 Mg Cap, 1 CAP PO Q12HR for 30 Days, #60 06/12/24 Alendronate Sodium (Alendronate Sodium) 70 Mg Tab, 1 TAB PO QWEEKLY for 48 Days TAKE 1 TABLET BY MOUTH 30 MINUTES BEFORE THE FIRST FOOD, BEVERAGE OR MEDICINE OF THE DAY WITH PLAIN WATER 06/12/24 Information Source: Patient, Relative Mode of Arrival: Wheelchair Past Medical History PAST MEDICAL HISTORY: Arthritis, Asthma, COPD Surgical History: Hysterectomy 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 Was a procedure done?: No Differential Dx Considerations may include: anemia, electrolyte imbalance, dehydration, bowel obstruction X-Ray, Labs, Meds, VS Vital Signs Date Time Temp Pulse Resp B/P (MAP) Pulse Ox O2 Delivery O2 Flow Rate FiO2 04/03/25 23:20 98.0 82 16 101/54 (70) 95 98.0 04/03/25 21:13 97.7 86 18 124/79 95 97.7 Lab Test 04/03/25 22:05 Range/Units White Blood Count 12.6 H 4.4-10.8 10^3/uL Red Blood Count 5.44 H 4.0-5.20 10^6/uL Hemoglobin 15.4 12.2-16.2 g/dL Hematocrit 44.5 36.0-46.0 % Mean Corpuscular Volume 81.9 80.0-100.0 fL Mean Corpuscular Hemoglobin 28.4 28.0-32.0 pg Mean Corpuscular Hemoglobin Concent 34.6 32.0-36.0 g/dL Red Cell Distribution Width 13.7 11.8-14.3 % Platelet Count 265 140-450 10^3/uL Mean Platelet Volume 9.1 6.9-10.8 fL Neutrophils (%) (Auto) 70.4 37.0-80.0 % Lymphocytes (%) (Auto) 19.0 10.0-50.0 % Monocytes (%) (Auto) 8.5 0.0-12.0 % Eosinophils (%) (Auto) 1.5 0.0-7.0 % Basophils (%) (Auto) 0.6 0.0-2.0 % Neutrophils # (Auto) 8.9 H 1.6-8.6 10 ^3/uL Lymphocytes # (Auto) 2.4 0.4-5.4 10 ^3/uL Monocytes # (Auto) 1.1 0-1.3 10 ^3/uL Eosinophils # (Auto) 0.2 0-0.8 10 ^3/uL Basophils # (Auto) 0.1 0-0.2 10 ^3/uL Nucleated Red Blood Cells 0.1 % Sodium Level 118 *L 136-145 mmol/L Potassium Level 2.8 L 3.5-5.1 mmol/L Chloride Level 81 L 98-107 mmol/L Carbon Dioxide Level 28 20-31 mmol/L Anion Gap 9 5-15 Blood Urea Nitrogen 85 *H 9-23 mg/dL Creatinine 4.15 H 0.550-1.02 mg/dL Glomerular Filtration Rate Calc 11 >90 mL/min BUN/Creatinine Ratio 20.5 H 10.0-20.0 Serum Glucose 113 H 74-106 mg/dL Serum Osmolality 303 H 278-298 mOsm/kg Lactic Acid Level 1.0 0.4-2.0 mmol/L Calcium Level 9.7 8.7-10.4 mg/dL Magnesium Level 2.7 H 1.6-2.6 mg/dL Total Bilirubin 0.5 0.2-1.0 mg/dL Aspartate Amino Transferase (AST) 13 13-40 U/L Alanine Aminotransferase (ALT) < 9 7-40 U/L Alkaline Phosphatase 70 46-116 U/L Troponin I High Sensitivity 17 </=34 ng/L B-Type Natriuretic Peptide 17.20 0-100 pg/mL Total Protein 7.6 5.7-8.2 g/dL Albumin 4.5 3.2-4.8 g/dL Lipase 90 H 12-53 U/L Thyroid Stimulating Hormone (TSH) 2.30 0.55-4.78 uIU/mL Plasma/Serum Blood Alcohol < 3.0 <10 mg/dL Time of 1ST Reevaluation: 21:45 Reevaluation 1ST: Unchanged Patient Education/Counseling: Need For Follow Up Family Education/Counseling: Need For Follow Up SEPSIS Sepsis Screen Date sepsis recognized/suspect: Apr 03, 2025 Time Sepsis recognized/suspect: 2116 Recent Procedure: No On Antibiotic Therapy: No Respiratory Rate >20: No Heart Rate >90: No Temp<36 C (96.8 F) or >38.3 C: No SBP <90 or MAP <65 mmHG: No New Acute Mental Status Change: No Is the patient on CPAP, BIPAP,: No Physician Orders Drug Screen (04/03/25 21:41) Covid19 Antigen Shelly (04/03/25 ) Rapid Influenza A&B (04/03/25 21:41) Urinalysis (04/03/25 21:41) Chest Xray 1 View (04/03/25 21:41) Electrocardigram (04/03/25 21:41) Blood Culture (04/03/25 21:41) Saline Lock (04/03/25 21:41) Straight Cath. (04/03/25 ) Titrate Oxygen (04/03/25 23:08) Oxygen (04/03/25 ) Continous Pulse Oximetry (04/03/25 23:08) Staff Appraiser (04/03/25 ) Seizure Precautions (04/03/25 ) Ct Ab Pel Wo Con-No Oral Or Iv (04/03/25 22:18) Vital Signs Date Time Temp Pulse Resp B/P (MAP) Pulse Ox O2 Delivery O2 Flow Rate FiO2 04/03/25 23:20 98.0 82 16 101/54 (70) 95 98.0 04/03/25 21:13 97.7 86 18 124/79 95 97.7 Laboratory Tests Test 04/03/25 22:05 Lactic Acid Level 1.0 mmol/L (0.4-2.0) White Blood Count 12.6 10^3/uL (4.4-10.8) H Departure 1 Departure Time of Disposition: 23:11 Impression: Primary Impression: Chronic hyponatremia Additional Impressions: Acute renal failure Hypokalemia Hypochloremia Disposition: ADMITTED INPATIENT Condition: Serious Comments Patient is stabilized in ED Likely chronic hyponatremia. Slow careful correction of sodium and potassium to prevent osmotic demyelination syndrome and over correction of potassium. Patient admitted to hospitalist service for further treatment, evaluation and monitoring. Critical Care Note Critical Care Time?: No Stability Stability form required: No Heart Score Heart Score: Heart Score Response (Comments) Value History N/A 0 EKG N/A 0 Age N/A 0 Risk Factors N/A 0 Troponin N/A 0 Total 0 I personally scribed for TIFFANY HOYOS MD ([email or web address]) on 04/03/25 at 21:46. Electronically submitted by Matthew Alvarado ([employer]). I personally scribed for TIFFANY HOYOS MD ([email or web address]) on 04/03/25 at 21:51. Electronically submitted by Matthew Alvarado ([employer]). I personally scribed for TIFFANY HOYOS MD ([email or web address]) on 04/03/25 at 23:10. Electronically submitted by Matthew Alvarado ([employer]). TIFFANY HOYOS MD Apr 03, 2025 21:46
--- NOTE | 2025-04-03 22:16 | DVH ---
CLINICAL HISTORY: AMS TECHNIQUE: Single view of the chest was obtained. COMPARISON: XY CHEST PORTABLE on DOS: 06/20/24, XY CHEST XRAY 1 VIEW on DOS: 06/18/24, XY CHEST PORTABLE on DOS: 06/17/24, XY CHEST PORTABLE on DOS: 06/16/24, XY CHEST PORTABLE on DOS: 06/15/24 FINDINGS: The heart size and pulmonary vasculature are normal. The lungs are clear. IMPRESSION: NO ACUTE CARDIOPULMONARY PROCESS.
[2025-04-03 22:28] LABS: Hematocrit 44.5 % (36.0-46.0); Hemoglobin 15.4 g/dL (12.2-16.2); Mean Corpuscular Hemoglobin 28.4 pg (28.0-32.0); Mean Corpuscular Volume 81.9 fL (80.0-100.0); Nucleated Red Blood Cells % 0.1 %
[2025-04-03 22:39] LABS: Albumin 4.5 g/dL (3.2-4.8); Alkaline Phosphatase 70 U/L (46-116); Anion Gap 9 (5-15); BUN/Creatinine Ratio 20.5 (10.0-20.0); Bilirubin, Total 0.5 mg/dL (0.2-1.0); Calcium 9.7 mg/dL (8.7-10.4); Carbon Dioxide 28 mmol/L (20-31); Total Protein 7.6 g/dL (5.7-8.2)
[2025-04-03 22:41] LABS: Alanine Aminotransferase < 9 U/L (7-40); Chloride 81 mmol/L (98-107); Glucose 113 mg/dL (74-106); Lipase 90 U/L (12-53); Magnesium 2.7 mg/dL (1.6-2.6); Potassium 2.8 mmol/L (3.5-5.1)
[2025-04-03 22:44] LABS: Blood Urea Nitrogen 85 mg/dL (9-23); Sodium 118 mmol/L (136-145)
--- NOTE | 2025-04-03 23:50 | DVH ---
Exam: CT CT AB PEL WO CON-NO ORAL OR IV History: Abdominal pain, nausea, vomiting, early satiety Comparison Study: None TECHNIQUE: Multidetector CT of the abdomen and pelvis was performed from lung bases to pubic symphysi s. Imaging was performed without IV contrast. Axial, coronal, and sagittal multiplanar reformats were obtained from the axial data set by the technologist. RADIATION DOSE: CTDI vol 6.95 mGy. DLP 401.8 mGy.cm Findings: Limited evaluation of the solid organs in the absence of IV contrast. Lungs: Scattered atelectasis/ scarring. Emphysematous changes. Liver: Unremarkable. Spleen: Unremarkable. Pancreas: Unremarkable. Gallbladder: Cholelithiasis. Adrenals: Unremarkable Kidneys: Unremarkable. Pelvic Viscera: Prior hysterectomy. Vasculature: Atherosclerotic aortoiliac calcification. 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 Retroperitoneum: Unremarkable. Bowel: Colonic diverticulosis without CT evidence of diverticulitis. Portions of the bowel are decom pressed, limiting assessment. The appendix is normal. Musculoskeletal: Grade 1 anterolisthesis of L5 on S1. Soft tissues: Unremarkable Impression: 1. No acute abdominopelvic abnormality. 2. 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 Consider a nonemerg ent dedicated CTA in further assessment. 3. Additional incidental findings as detailed.
[2025-04-04] MEDS ORDERED: ONDANSETRON HCL 4 MG/2 ML VIAL IV PRN (01:45)
[2025-04-04] MEDS ORDERED: MORPHINE SULFATE INJ 2 MG/ml SYRG IV PRN (01:45)
[2025-04-04] MEDS ORDERED: NITROGLYCERIN 0.4 MG SL TAB SL PRN (01:45)
[2025-04-04] MEDS ORDERED: ACETAMINOPHEN 325 MG TAB PO PRN (01:45)
[2025-04-04] MEDS ORDERED: DOCUSATE SOD 100 MG CAP PO PRN (01:45)
--- NOTE | 2025-04-04 02:00 | DVHHP2 ---
History of Present Illness Reason for Visit: Acute renal failure History of Present Illness The patient is a 69-year-old female with past medical history of asthma, arthritis, neuropathy, and COPD who presented to [facility] ED for evaluation of generalized weakness. Patient reports she has been experiencing generalized weakness associated with loss of appetite, abdominal pain, abdominal distention, constipation, and nausea. Patient was seen and evaluated in the ED, laboratory data shows WBC 12.6, platelets 265, sodium 118, potassium 2.8, BUN 85, creatinine 4.15, GFR 11, glucose 113, calcium 9.7, magnesium 2.7, lipase 90, osmolality 303, TSH 2.30, troponin 17, blood pressure 101/54, heart rate 82, temperature 98.0 F, O2 saturation 95% on room air. 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 Chest x-ray show no acute cardiopulmonary process. Please see medication orders section in the computer. On my assessment, daughter at bedside, patient denies chest pain, no headache, dizziness, diaphoresis, shortness of breaths, no diarrhea, nausea or vomiting at this moment, no fever, chills. Patient was admitted for further evaluation and medical management. Past Medical History Neuropathy, Arthritis, Asthma, COPD Past Surgical History Hysterectomy Family History Reviewed, noncontributory to the management of this case. Past Social History The patient lives at home, denies smoking, alcohol or illicit drugs abuse. Review of Systems Constitutional: Yes: Weakness, Other (Fatigue) Eyes: No: Pain, Vision change, Conjunctivae inflammation, Eyelid inflammation, Other, Redness ENT: No: Ear pain, Ear discharge, Nose pain, Nose discharge, Nose congestion, Mouth pain, Mouth swelling, Throat pain, Throat swelling, Other Respiratory: No: Cough, Dry, Shortness of breath, SOB with excertion, Wheezing, Hemoptysis, Pleuritic Pain, Sputum, Wheezing, Other Cardiovascular: No: Chest Pain, Palpitations, Orthopnea, Paroxysmal Noc. Dyspnea, Edema, Lt Headedness, Other Gastrointestinal: Nausea, Abdominal Pain; No: Vomiting, Diarrhea, Constipation, Melena, Hematochezia, Other Genitourinary: No Dysuria, No Frequency, No Incontinence, No Hematuria, No Retention, No Other Musculoskeletal: No: other, neck pain, shoulder pain, arm pain, back pain, hand pain, leg pain, foot pain Skin: No: Rash, Lesions, Jaundice, Bruising, Other Neurological: No: Weakness, Numbness, Incoordination, Change in speech, Confusion, Seizures, Other Allergies: Coded Allergies: NO KNOWN ALLERGIES (Unverified , 06/11/24) Exam Vital Signs Vital Signs Date Time Temp Pulse Resp B/P (MAP) Pulse Ox O2 Delivery O2 Flow Rate FiO2 04/03/25 23:20 98.0 82 16 101/54 (70) 95 98.0 General Appearance: Alert, Oriented X3, Cooperative, No acute distress HEENT: Atraumatic, PERRLA, EOMI, Mucous membr. moist/pink Respiratory: Normal air movement Cardiovascular: Regular rate, Normal S1, Normal S2, No murmurs Abdominal: Normal bowel sounds, Soft, No hepatospenomegaly, No masses, Other (Reports tenderness) Extremities: No clubbing, No cyanosis, No edema, Normal pulses, No tenderness/swelling Skin: No rashes, No significant lesion Neuro: Normal speech, Normal tone, Sensation intact, Cranial nerves 3-12 NL, Reflexes 2+, Other (Generalized weakness) Psych/Mental Status: Mental status NL, Mood NL Labs/Xrays Labs Test 04/03/25 22:05 Range/Units White Blood Count 12.6 H 4.4-10.8 10^3/uL Red Blood Count 5.44 H 4.0-5.20 10^6/uL Hemoglobin 15.4 12.2-16.2 g/dL Hematocrit 44.5 36.0-46.0 % Mean Corpuscular Volume 81.9 80.0-100.0 fL Mean Corpuscular Hemoglobin 28.4 28.0-32.0 pg Mean Corpuscular Hemoglobin Concent 34.6 32.0-36.0 g/dL Red Cell Distribution Width 13.7 11.8-14.3 % Platelet Count 265 140-450 10^3/uL Mean Platelet Volume 9.1 6.9-10.8 fL Neutrophils (%) (Auto) 70.4 37.0-80.0 % Lymphocytes (%) (Auto) 19.0 10.0-50.0 % Monocytes (%) (Auto) 8.5 0.0-12.0 % Eosinophils (%) (Auto) 1.5 0.0-7.0 % Basophils (%) (Auto) 0.6 0.0-2.0 % Neutrophils # (Auto) 8.9 H 1.6-8.6 10 ^3/uL Lymphocytes # (Auto) 2.4 0.4-5.4 10 ^3/uL Monocytes # (Auto) 1.1 0-1.3 10 ^3/uL Eosinophils # (Auto) 0.2 0-0.8 10 ^3/uL Basophils # (Auto) 0.1 0-0.2 10 ^3/uL Nucleated Red Blood Cells 0.1 % Sodium Level 118 *L 136-145 mmol/L Potassium Level 2.8 L 3.5-5.1 mmol/L Chloride Level 81 L 98-107 mmol/L Carbon Dioxide Level 28 20-31 mmol/L Anion Gap 9 5-15 Blood Urea Nitrogen 85 *H 9-23 mg/dL Creatinine 4.15 H 0.550-1.02 mg/dL Glomerular Filtration Rate Calc 11 >90 mL/min BUN/Creatinine Ratio 20.5 H 10.0-20.0 Serum Glucose 113 H 74-106 mg/dL Serum Osmolality 303 H 278-298 mOsm/kg Lactic Acid Level 1.0 0.4-2.0 mmol/L Calcium Level 9.7 8.7-10.4 mg/dL Magnesium Level 2.7 H 1.6-2.6 mg/dL Total Bilirubin 0.5 0.2-1.0 mg/dL Aspartate Amino Transferase (AST) 13 13-40 U/L Alanine Aminotransferase (ALT) < 9 7-40 U/L Alkaline Phosphatase 70 46-116 U/L Troponin I High Sensitivity 17 </=34 ng/L B-Type Natriuretic Peptide 17.20 0-100 pg/mL Total Protein 7.6 5.7-8.2 g/dL Albumin 4.5 3.2-4.8 g/dL Lipase 90 H 12-53 U/L Thyroid Stimulating Hormone (TSH) 2.30 0.55-4.78 uIU/mL Plasma/Serum Blood Alcohol < 3.0 <10 mg/dL PATIENT: MARILEE RECIO ACCT: [id number] UNIT: [id number] : 1955 LOC: ER ROOM / BED: / AGE / SEX: 69 / F ADM STATUS: REG ER SERVICE ORDERING PHYSICIAN: TIFFANY HOYOS MD PROCEDURE(s): ABPL - CT AB PEL WO CON-NO ORAL OR IV REASON: Abdominal pain, nausea, vomiting, early satiety ORDER NUMBER(s): [id number], ACCESSION NUMBER(s): [id number] Exam: CT CT AB PEL WO CON-NO ORAL OR IV History: Abdominal pain, nausea, vomiting, early satiety Comparison Study: None TECHNIQUE: Multidetector CT of the abdomen and pelvis was performed from lung bases to pubic symphysis. Imaging was performed without IV contrast. Axial, coronal, and sagittal multiplanar reformats were obtained from the axial data set by the technologist. RADIATION DOSE: CTDI vol 6.95 mGy. DLP 401.8 mGy.cm Findings: Limited evaluation of the solid organs in the absence of IV contrast. Lungs: Scattered atelectasis/ scarring. Emphysematous changes. Liver: Unremarkable. Spleen: Unremarkable. Pancreas: Unremarkable. Gallbladder: Cholelithiasis. Adrenals: Unremarkable Kidneys: Unremarkable. Pelvic Viscera: Prior hysterectomy. Vasculature: Atherosclerotic aortoiliac calcification. 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 Retroperitoneum: Unremarkable. Bowel: Colonic diverticulosis without CT evidence of diverticulitis. Portions of the bowel are decompressed, limiting assessment. The appendix is normal. Musculoskeletal: Grade 1 anterolisthesis of L5 on S1. Soft tissues: Unremarkable Impression: 1. No acute abdominopelvic abnormality. 2. 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 Consider a nonemergent dedicated CTA in further assessment. 3. Additional incidental findings as detailed. ORDERING PHYSICIAN: TIFFANY HOYOS MD PROCEDURE(s): CXR1 - CHEST XRAY 1 VIEW REASON: AMS ORDER NUMBER(s): [id number], ACCESSION NUMBER(s): [id number] CLINICAL HISTORY: AMS TECHNIQUE: Single view of the chest was obtained. COMPARISON: XY CHEST PORTABLE on DOS: 06/20/24, XY CHEST XRAY 1 VIEW on DOS: 06/18/24, XY CHEST PORTABLE on DOS: 06/17/24, XY CHEST PORTABLE on DOS: 06/16/24, XY CHEST PORTABLE on DOS: 06/15/24 FINDINGS: The heart size and pulmonary vasculature are normal. The lungs are clear. IMPRESSION: NO ACUTE CARDIOPULMONARY PROCESS. SEPSIS Sepsis Screen Date sepsis recognized/suspect: Apr 03, 2025 Time Sepsis recognized/suspect: 2116 Recent Procedure: No On Antibiotic Therapy: No Respiratory Rate >20: No Heart Rate >90: No Temp<36 C (96.8 F) or >38.3 C: No SBP <90 or MAP <65 mmHG: No New Acute Mental Status Change: No Is the patient on CPAP, BIPAP,: No Physician Orders Drug Screen (04/03/25 21:41) Covid19 Antigen Shelly (04/03/25 ) Rapid Influenza A&B (04/03/25 21:41) Urinalysis (04/03/25 21:41) Chest Xray 1 View (04/03/25 21:41) Electrocardigram (04/03/25 21:41) Blood Culture (04/03/25 21:41) Saline Lock (04/03/25 21:41) Straight Cath. (04/03/25 ) Titrate Oxygen (04/03/25 23:08) Oxygen (04/03/25 ) Continous Pulse Oximetry (04/03/25 23:08) Medical Insurance Claims Processor (04/03/25 ) Seizure Precautions (04/03/25 ) Ct Ab Pel Wo Con-No Oral Or Iv (04/03/25 22:18) Vital Signs Date Time Temp Pulse Resp B/P (MAP) Pulse Ox O2 Delivery O2 Flow Rate FiO2 04/03/25 23:20 98.0 82 16 101/54 (70) 95 98.0 04/03/25 21:13 97.7 86 18 124/79 95 97.7 Laboratory Tests Test 04/03/25 22:05 Lactic Acid Level 1.0 mmol/L (0.4-2.0) White Blood Count 12.6 10^3/uL (4.4-10.8) H Assessment/Plan Assessment/Plan Acute renal failure Acute hyponatremia Leukocytosis, unspecified Electrolyte imbalance Generalized weakness Plan 1. Admit to telemetry unit 2. Breathing treatment 3. Pain control management 4. IV antibiotic management 5. Management of fluids and electrolytes 6. Consultation for Nephrology 7. Diagnostic test abdomen/pelvis CT 8. DVT prophylaxis on SCDs 9. Repeat labs CBC, CMP in a.m. 10. Home medication reviewed and reconciled 11. Continue with current medical management 12. Treatment plan discussed with patient/daughter and RN. Patient/daughter verbalized understanding. Plan discussed with: Patient, Other (RN) Problem List: (1) Acute renal failure (2) Acute hyponatremia (3) Leukocytosis, unspecified (4) Electrolyte imbalance (5) Generalized weakness Date of Service: Apr 04, 2025 Billing Provider: GEORGE KAPLAN DNP Common Visit Codes: [id number] INP/OBS CARE (HIGH) GEORGE KAPLAN DNP Apr 04, 2025 02:00
[2025-04-04 03:34] LABS: Hematocrit 42.4 % (36.0-46.0); Hemoglobin 14.2 g/dL (12.2-16.2); Mean Corpuscular Hemoglobin 28.1 pg (28.0-32.0); Mean Corpuscular Volume 83.8 fL (80.0-100.0); Nucleated Red Blood Cells % 0.0 %
[2025-04-04 03:46] LABS: Albumin 4.2 g/dL (3.2-4.8); Alkaline Phosphatase 65 U/L (46-116); Anion Gap 12 (5-15); BUN/Creatinine Ratio 19.3 (10.0-20.0); Bilirubin, Total 0.5 mg/dL (0.2-1.0); Calcium 9.4 mg/dL (8.7-10.4); Carbon Dioxide 26 mmol/L (20-31); Glucose 96 mg/dL (74-106); Total Protein 7.0 g/dL (5.7-8.2)
[2025-04-04] MEDS: SODIUM CHLORIDE 0.9% 500 ML IV ONE (03:47)
[2025-04-04] MEDS: POTASSIUM CHL 20MEQ/100ML 50 ML IV ONE (03:47)
[2025-04-04 03:49] LABS: Free T3 2.94 pg/mL (2.3-4.2); Free T4 (Free Thyroxine) 1.79 ng/dL (0.89-1.76)
[2025-04-04 03:53] LABS: Alanine Aminotransferase < 9 U/L (7-40); Blood Urea Nitrogen 78 mg/dL (9-23); Chloride 81 mmol/L (98-107); Potassium 2.8 mmol/L (3.5-5.1); Sodium 119 mmol/L (136-145)
[2025-04-04] MEDS: SODIUM CHL 3% 500 ML IV ONE (05:28)
[2025-04-04] MEDS: SODIUM CHLOR 0.9% PF (SALINE LOCK) 10ML VIAL/SYR IV SCH (06:24)
[2025-04-04] MEDS: MIDODRINE HCL 10 MG TAB PO SCH (06:27)
[2025-04-04 08:00] VITALS: PULSE 61; RESP 15; O2SAT 93
[2025-04-04 08:21] LABS: Urine Protein, UAD Negative (Negative)
[2025-04-04 08:24] LABS: Amphetamine Screen, Urine Neg (NEGATIVE); Barbiturate Scree,Urine Neg (NEGATIVE); Benzodiazephine Screen, Urine Neg (NEGATIVE); Cannabinoid Screen, Urine Neg (NEGATIVE); Cocaine Screen, Urine Neg (NEGATIVE); Opiate Scree,Urine Pos (NEGATIVE); Phencyclidine Screen, Urine Neg (NEGATIVE)
[2025-04-04 10:21] LABS: Anion Gap 7 (5-15); Carbon Dioxide 27 mmol/L (20-31); Chloride 91 mmol/L (98-107); Potassium 3.2 mmol/L (3.5-5.1); Sodium 125 mmol/L (136-145)
[2025-04-04 10:22] LABS: Calcium 8.9 mg/dL (8.7-10.4)
[2025-04-04 10:27] LABS: BUN/Creatinine Ratio 21.5 (10.0-20.0); Blood Urea Nitrogen 78 mg/dL (9-23); Glucose 97 mg/dL (74-106); Magnesium 2.6 mg/dL (1.6-2.6)
[2025-04-04] MEDS: B-COMPLEX W/ C & FOLIC ACID(NEPHROVITE TAB) PO SCH (11:02)
[2025-04-04] MEDS: POTASSIUM CHL 20 Meq TABLET PO ONE (11:05)
[2025-04-04 11:37] LABS: COVID19 ANTIGEN SOFIA FIA NEGATIVE (NEGATIVE)
--- NOTE | 2025-04-04 13:06 | DVHPN2 ---
Reviewed: Care Plan, H&P, Labs, Medications, Previous Orders, Radiology Changes from previous H/P or p: No Changes Eyes: No Pain, No Vision change, No Conjunctivae inflammation, No Eyelid inflammation, No Other, No Redness ENT: No Ear pain, No Ear discharge, No Nose pain, No Nose discharge, No Nose congestion, No Mouth pain, No Mouth swelling, No Throat pain, No Throat swelling, No Other Cardiovascular: No Chest Pain, No Palpitations, No Orthopnea, No Paroxysmal Noc. Dyspnea, No Edema, No Lt Headedness, No Other Respiratory: No Cough, No Dry, No Shortness of breath, No SOB with excertion, No Wheezing, No Hemoptysis, No Pleuritic Pain, No Sputum, No Other Gastrointestinal: Nausea, Abdominal Pain Genitourinary: No Dysuria, No Frequency, No Incontinence, No Hematuria, No Retention, No Other Musculoskeletal: No other, No neck pain, No shoulder pain, No arm pain, No back pain, No hand pain, No leg pain, No foot pain Skin: No Rash, No Lesions, No Jaundice, No Bruising, No Other Objective Vitals Vital Signs Date Time Temp Pulse Resp B/P (MAP) Pulse Ox O2 Delivery O2 Flow Rate FiO2 04/04/25 12:00 98.1 78 16 108/41 (63) 96 98.1 04/04/25 08:00 Nasal Cannula* 1 24 Intake/Output Intake and Output 04/04/25 07:00 Intake Total 580 ml Balance 580 ml Intake IV Total 580 ml Medications Current Medications Medications Dose Ordered Sig/Ilan Route Start Time Stop Time Status Last Admin Dose Admin Ceftriaxone Sodium 50 ml @ 100 mls/hr DAILY@09 IV 04/05/25 09:00 Multivit/Ca Carb/ B Cmplx/FA/Prenat 1 tab DAILY PO 04/04/25 10:00 04/04/25 11:02 1 TAB Sodium Chloride 10 ml Q8HR IV 04/04/25 06:00 04/04/25 06:24 10 ML Acetaminophen/ Hydrocodone Bitart 1 tab Q4HP PRN PO 04/04/25 01:45 Ondansetron HCl 4 mg Q4HP PRN IV 04/04/25 01:45 Docusate Sodium 100 mg BIDPRN PRN PO 04/04/25 01:45 Acetaminophen 650 mg Q6HP PRN PO 04/04/25 01:45 Nitroglycerin 0.4 mg Q5MINP PRN SL 04/04/25 01:45 Morphine Sulfate 2 mg Q30M PRN IV 04/04/25 01:45 Midodrine 10 mg TID@0600,1200,1800 PO 04/04/25 06:00 04/04/25 06:27 10 MG Laboratory Results Laboratory Tests 04/04/25 03:20 04/04/25 09:46 Chemistry Test 04/03/25 22:05 04/04/25 03:20 04/04/25 09:46 Albumin 4.5 g/dL (3.2-4.8) 4.2 g/dL (3.2-4.8) Calcium Level 9.7 mg/dL (8.7-10.4) 9.4 mg/dL (8.7-10.4) 8.9 mg/dL (8.7-10.4) Magnesium Level 2.7 mg/dL (1.6-2.6) H 2.6 mg/dL (1.6-2.6) Total Protein 7.6 g/dL (5.7-8.2) 7.0 g/dL (5.7-8.2) Lipid panel Test 04/03/25 22:05 Lipase 90 U/L (12-53) H Cardiac Markers Test 04/03/25 22:05 B-Type Natriuretic Peptide 17.20 pg/mL (0-100) LFT Test 04/03/25 22:05 04/04/25 03:20 Alanine Aminotransferase (ALT) < 9 U/L (7-40) < 9 U/L (7-40) Alkaline Phosphatase 70 U/L (46-116) 65 U/L (46-116) Aspartate Amino Transferase (AST) 13 U/L (13-40) 13 U/L (13-40) Total Bilirubin 0.5 mg/dL (0.2-1.0) 0.5 mg/dL (0.2-1.0) HgA1c, TSH Test 04/03/25 22:05 Thyroid Stimulating Hormone (TSH) 2.30 uIU/mL (0.55-4.78) Urinalysis Test 04/04/25 07:05 Urine Color Light-yellow (Yellow) Urine Clarity Clear (Clear) Urine pH 5.0 (5.0-9.0) Urine Specific [place] 1.012 (1.001-1.035) Urine Protein Negative (Negative) Urine Ketones Trace (Negative) Urine Blood Negative /uL (Negative) Urine Nitrite Negative (Negative) Urine Bilirubin Negative (Negative) Urine Urobilinogen Normal mg/dL (Negative) Urine Leukocyte Esterase 1+ /uL (Negative) Urine RBC 1 /hpf (0 - 4) Urine Microscopic WBC 12 /HPF (0-5) H Urine Squamous Epithelial Cells Few /hpf (<5) Urine Bacteria Few /hpf (None Seen) H Urine Glucose Normal mg/dL (Normal) Labs and/or images reviewed: Labs reviewed by me, Image(s) reviewed by me Assessment/Plan Assessment/Plan Acute renal failure versus CKD4 Consult for Nephrology Acute metabolic encephalopathy Sepsis possibly secondary to UTI Acute urinary tract infection: Blood cultures urine cultures Rocephin Dayan test negative Flu test negative Hypertension Acute COPD exacerbation Time spent 70 minutes Advanced care planning time 20 minutes Patient is hospice revoked Plan discussed with: Patient Date of Service: Apr 04, 2025 Billing Provider: GRZEGORZ BOBO MD Common Visit Codes: [id number] CARE 30-74 MIN GRZEGORZ BOBO MD Apr 04, 2025 13:06
[2025-04-04 13:46] LABS: Anion Gap 7 (5-15); Carbon Dioxide 27 mmol/L (20-31)
[2025-04-04 13:47] LABS: Calcium 8.6 mg/dL (8.7-10.4); Chloride 92 mmol/L (98-107); Potassium 3.4 mmol/L (3.5-5.1); Sodium 126 mmol/L (136-145)
[2025-04-04 13:51] LABS: BUN/Creatinine Ratio 21.3 (10.0-20.0); Glucose 96 mg/dL (74-106)
[2025-04-04 13:53] LABS: Blood Urea Nitrogen 71 mg/dL (9-23)
--- NOTE | 2025-04-04 15:17 | DVH ---
EXAM: CT CHEST WITHOUT CONTRAST INDICATION: r/onlung mass /extensive smoking TECHNIQUE: Noncontrast axial images of the chest have been obtained along with coronal and sagittal r eformatted images. All CT scans at this facility use dose modulation, iterative reconstruction, and/o r weight based dosing when appropriate to reduce radiation dose to as low as reasonably achievable. COMPARISON: XY CHEST XRAY 1 VIEW on DOS: 04/03/25 FINDINGS: LOWER NECK: Unremarkable LYMPH NODES/MEDIASTINUM: No abnormal lymph nodes by CT size criteria CARDIOVASCULAR: Normal cardiac size. No pericardial effusion. No aneurysmal dilatation of the great v essels. Coronary artery calcifications. UPPER ABDOMEN: Unremarkable. MUSCULOSKELETAL: No acute fracture or aggressive focal osseous lesion. Multilevel degenerative change of the visualized spine. Sclerosis of the left anterior 3rd, 4th, 5th, 6th ribs. Imaging finding may be sequelae prior fracture CHEST WALL: Unremarkable. LUNG PARENCHYMA/PLEURAL SPACE: No pleural effusion or pneumothorax. No consolidation, suspicious foca l airspace opacity, or suspicious nodules. Mild centrilobular emphysema. Tracheal secretions. IMPRESSION: 1. No CT evidence of an acute intrathoracic process.
[2025-04-04] MEDS: HYDROcodone-ACET 5/325MG TAB PO PRN (15:52)
[2025-04-04 16:00] VITALS: BP_SYST 106; BP_SYST 116; BP_DIAS 47; BP_DIAS 69; PULSE 61; PULSE 68; RESP 18; TEMP 97.9; TEMP 98.5; O2SAT 96; O2SAT 98
--- NOTE | 2025-04-04 16:56 | DVHCONRES ---
Date Seen: Apr 04, 2025 Resident Creating Document: MARLYN VALENZUELA RESDIENT History of Present Illness The patient is a 69-year-old female with past medical history of asthma, arthritis, neuropathy, osteoporosis and COPD who presented to [facility] ED for evaluation of generalized weakness. Patient reports she has been experiencing generalized weakness associated with loss of appetite, abdominal pain, abdominal distention, constipation, and nausea. Home meds: Alendronate, fluticasone, losartan, metoprolol, Protonix Family History: Patient reports no known family medical history. Allergies: Coded Allergies: NO KNOWN ALLERGIES (Unverified , 06/11/24) Home Meds Active Scripts Amoxicillin & Pot Clavulanate (AUGMENTIN TABLET) 875 Mg Tb, 875 MG PO BID for 7 Days, #14 TAB Prov:VIRGEN MANZO [employer] 06/24/24 Metoprolol Tartrate (LOPRESSOR TABLET) 50 Mg Tb, 50 MG PO BID for 30 Days, #60 TAB Prov:VIRGEN [employer]ZO [employer] 06/24/24 Hydrochlorothiazide (Hydrochlorothiazide) 25 Mg Tab, 1 TAB PO QAM for 90 Days, #90 TAB TAKE ONE TABLET BY MOUTH EVERY DAY IN THE MORNING Prov:VIRGEN [employer]ZO [employer] 06/24/24 Reported Medications Celecoxib (Celecoxib) 100 Mg Cap, 1 CAP PO DAILY for 90 Days, #90 TAKE ONE CAPSULE BY MOUTH ONE TIME DAILY WITH FOOD 06/12/24 [id number] (Trelegy Ellipta 200-62.5-25 Mcg/INH) 1 Aer Aer, 1 PUFF PO DAILY for 90 Days, #180 INHALE ONE PUFF BY MOUTH ONE TIME DAILY 06/12/24 Pantoprazole Sodium Sesquihydr (Pantoprazole Sodium) 40 Mg Tab, 1 TAB PO DAILY for 90 Days, #90 06/12/24 Losartan Potassium (Losartan Potassium) 50 Mg Tab, 1 TAB PO DAILY for 60 Days, #60 06/12/24 Gabapentin (Gabapentin) 400 Mg Cap, 1 CAP PO Q12HR for 30 Days, #60 06/12/24 Alendronate Sodium (Alendronate Sodium) 70 Mg Tab, 1 TAB PO QWEEKLY for 48 Days TAKE 1 TABLET BY MOUTH 30 MINUTES BEFORE THE FIRST FOOD, BEVERAGE OR MEDICINE OF THE DAY WITH PLAIN WATER 06/12/24 Current Medications Current Medications Medications (Trade) Dose Ordered Sig/Ilan Route PRN Reason Start Time Stop Time Status Last Admin Ceftriaxone Sodium 50 ml @ 100 mls/hr DAILY@09 IV 04/05/25 09:00 Multivit/Ca Carb/ B Cmplx/FA/Prenat (Nephro-Sarah Tablet) 1 tab DAILY PO 04/04/25 10:00 04/04/25 11:02 Sodium Chloride (Saline Lock Ns) 10 ml Q8HR IV 04/04/25 06:00 04/04/25 14:07 Acetaminophen/ Hydrocodone Bitart ([place] 5/325MG Tab) 1 tab Q4HP PRN PO MODERATE PAIN (4-6 PAIN SCALE) 04/04/25 01:45 04/04/25 15:52 Ondansetron HCl (Zofran) 4 mg Q4HP PRN IV NAUSEA / VOMITING 04/04/25 01:45 Docusate Sodium (Colace Capsule) 100 mg BIDPRN PRN PO FOR CONSTIPATION 04/04/25 01:45 Acetaminophen (Tylenol Tablet) 650 mg Q6HP PRN PO PAIN SCALE 1-3 OR TEMP>100.4 04/04/25 01:45 Nitroglycerin (Ntrostat Sublingual) 0.4 mg Q5MINP PRN SL FOR CHEST PAIN 04/04/25 01:45 Morphine Sulfate 2 mg Q30M PRN IV FOR CHEST PAIN 04/04/25 01:45 Midodrine (Proamatine Tablet) 10 mg TID@0600,1200,1800 PO 04/04/25 06:00 04/04/25 06:27 Review of Systems Patient Seen and examined at the bedside. Patient is feeling better since admission and does not have any active complaint. Vital Signs Vital Signs Date Time Temp Pulse Resp B/P (MAP) Pulse Ox O2 Delivery O2 Flow Rate FiO2 04/04/25 12:00 98.1 78 16 108/41 (63) 96 98.1 04/04/25 08:00 Nasal Cannula* 24 Physical Exam General Appearance: Alert, Oriented X3, Cooperative, No acute distress HEENT: Atraumatic, PERRLA, EOMI, Mucous membrane moist/pink Respiratory: bilateral mild rhonchi Cardiovascular: Regular rate, Normal S1, Normal S2, No murmurs, no chest wall tenderness Abdominal: Normal bowel sounds, Soft, No tenderness, No hepatospenomegaly, No masses Extremities: No clubbing, No cyanosis, No edema, Normal pulses, No ten derness/swelling Skin: No rashes, No breakdown, No significant lesion Neuro: Normal gait, Normal speech, Strength at 5/5 X4 ext, Normal tone, Sensation intact, Cranial nerves 3-12 NL, Reflexes 2+ Psych/Mental Status: Mental status NL, Mood NL Labs/Diagnostic Data Labs Test 04/04/25 13:02 04/04/25 09:46 04/04/25 07:05 04/04/25 03:20 Range/Units Sodium Level 126 L 136-145 mmol/L Potassium Level 3.4 L 3.5-5.1 mmol/L Chloride Level 92 L 98-107 mmol/L Carbon Dioxide Level 27 20-31 mmol/L Anion Gap 7 5-15 Blood Urea Nitrogen 71 H 9-23 mg/dL Creatinine 3.33 H 0.550-1.02 mg/dL Glomerular Filtration Rate Calc 14 >90 mL/min BUN/Creatinine Ratio 21.3 H 10.0-20.0 Serum Glucose 96 74-106 mg/dL Calcium Level 8.6 L 8.7-10.4 mg/dL Magnesium Level 2.6 1.6-2.6 mg/dL Urine Color Light-yellow Yellow Urine Clarity Clear Clear Urine pH 5.0 5.0-9.0 Urine Specific [place] 1.012 1.001-1.035 Urine Protein Negative Negative Urine Ketones Trace Negative Urine Blood Negative Negative /uL Urine Nitrite Negative Negative Urine Bilirubin Negative Negative Urine Urobilinogen Normal Negative mg/dL Urine Leukocyte Esterase 1+ Negative /uL Urine RBC 1 0 - 4 /hpf Urine Microscopic WBC 12 H 0-5 /HPF Urine Squamous Epithelial Cells Few <5 /hpf Urine Bacteria Few H None Seen /hpf Urine Glucose Normal Normal mg/dL Urine Opiates Screen Pos NEGATIVE Urine Fentanyl Screen Neg NEGATIVE Urine Barbiturates Screen Neg NEGATIVE Urine Phencyclidine Screen Neg NEGATIVE Urine Amphetamines Screen Neg NEGATIVE Urine Benzodiazepines Screen Neg NEGATIVE Urine Cocaine Screen Neg NEGATIVE Urine Cannabinoids Screen Neg NEGATIVE White Blood Count 13.1 H 4.4-10.8 10^3/uL Red Blood Count 5.06 4.0-5.20 10^6/uL Hemoglobin 14.2 12.2-16.2 g/dL Hematocrit 42.4 36.0-46.0 % Mean Corpuscular Volume 83.8 80.0-100.0 fL Mean Corpuscular Hemoglobin 28.1 28.0-32.0 pg Mean Corpuscular Hemoglobin Concent 33.5 32.0-36.0 g/dL Red Cell Distribution Width 13.5 11.8-14.3 % Platelet Count 255 140-450 10^3/uL Mean Platelet Volume 8.8 6.9-10.8 fL Neutrophils (%) (Auto) 71.2 37.0-80.0 % Lymphocytes (%) (Auto) 20.1 10.0-50.0 % Monocytes (%) (Auto) 7.2 0.0-12.0 % Eosinophils (%) (Auto) 1.0 0.0-7.0 % Basophils (%) (Auto) 0.5 0.0-2.0 % Neutrophils # (Auto) 9.4 H 1.6-8.6 10 ^3/uL Lymphocytes # (Auto) 2.6 0.4-5.4 10 ^3/uL Monocytes # (Auto) 0.9 0-1.3 10 ^3/uL Eosinophils # (Auto) 0.1 0-0.8 10 ^3/uL Basophils # (Auto) 0.1 0-0.2 10 ^3/uL Nucleated Red Blood Cells 0.0 % Total Bilirubin 0.5 0.2-1.0 mg/dL Aspartate Amino Transferase (AST) 13 13-40 U/L Alanine Aminotransferase (ALT) < 9 7-40 U/L Alkaline Phosphatase 65 46-116 U/L Total Protein 7.0 5.7-8.2 g/dL Albumin 4.2 3.2-4.8 g/dL Free Thyroxine (T4) Calculated 1.79 H 0.89-1.76 ng/dL Free Triiodothyronine (T3) pg/mL 2.94 2.3-4.2 pg/mL Test 04/03/25 22:05 04/03/25 10:35 Range/Units Serum Osmolality 303 H 278-298 mOsm/kg Lactic Acid Level 1.0 0.4-2.0 mmol/L Troponin I High Sensitivity 17 </=34 ng/L B-Type Natriuretic Peptide 17.20 0-100 pg/mL Lipase 90 H 12-53 U/L Thyroid Stimulating Hormone (TSH) 2.30 0.55-4.78 uIU/mL Plasma/Serum Blood Alcohol < 3.0 <10 mg/dL Influenza Type A Antigen Negative Negative Influenza Type B Antigen Negative Negative SARS-CoV-2 Antigen (Rapid) Negative NEGATIVE Assessment This is an 69 year old lady with past medical history of COPD, hypertension known osteoporosis came to the hospital due to generalized weakness, abdominal pain, nausea and decreased appetite. Nephrology consulted due to IGLESIA and hyponatremia. Assessment: Hypovolemic hyponatremia IGLESIA on CKD hemodynamic etiology prerenal Hypovolemia Hypertension COPD UTI Osteoporsis * Chest CT 04/04 shows, severe centrilobular emphysema Plan/Recommendation: () * 50 mL NS 3% given, and sodium increased from 118 to 125 stop 3% saline * Strict I&Os * Check serum osmolality, urine osmolality, uric acid, TSH and urine sodium * We will follow up with the patient Thank you for giving us the opportunity to take care of the patient. Please call back if you have any questions/concerns. Addendum Patient seen and examined, plan discussed with resident. Agree with above, we will follow closely Plan discussed with: Patient, Other (RN) MARLYN VALENZUELA Apr 04, 2025 16:56 TYLOR TOLLIVER MD Apr 04, 2025 18:15
[2025-04-04 17:00] VITALS: BP 112/35; PULSE 68; RESP 17; TEMP 97.5; O2SAT 98
[2025-04-04] MEDS ORDERED: FURO20TA3 PO (18:56)
[2025-04-04] MEDS ORDERED: ALBUAER3 IN (18:56)
[2025-04-04] MEDS ORDERED: PREG50CA PO (18:56)
[2025-04-04] MEDS ORDERED: ZOFR4T PO (18:56)
[2025-04-04 20:00] VITALS: PULSE 75; RESP 17
[2025-04-04 21:00] VITALS: BP 115/61; PULSE 68; RESP 17; TEMP 98.8; O2SAT 95
[2025-04-05] VITALS (8 sets, daily range): BP systolic 96–122; BP diastolic 4–63; PULSE 58–76; RESP 15–18; TEMP 97.7–98.5; O2SAT 94–99
[2025-04-05 05:46] LABS: Hematocrit 38.8 % (36.0-46.0); Hemoglobin 13.4 g/dL (12.2-16.2); Mean Corpuscular Hemoglobin 28.7 pg (28.0-32.0); Mean Corpuscular Volume 82.6 fL (80.0-100.0); Nucleated Red Blood Cells % 0.1 %
[2025-04-05 06:09] LABS: Albumin 4.0 g/dL (3.2-4.8); Alkaline Phosphatase 59 U/L (46-116); Anion Gap 8 (5-15); BUN/Creatinine Ratio 30.9 (10.0-20.0); Calcium 9.4 mg/dL (8.7-10.4); Carbon Dioxide 29 mmol/L (20-31); Glucose 83 mg/dL (74-106); Total Protein 6.5 g/dL (5.7-8.2)
[2025-04-05 06:10] LABS: Bilirubin, Total 0.4 mg/dL (0.2-1.0)
[2025-04-05 06:14] LABS: Alanine Aminotransferase < 9 U/L (7-40); Blood Urea Nitrogen 79 mg/dL (9-23); Chloride 91 mmol/L (98-107); Potassium 3.1 mmol/L (3.5-5.1); Sodium 128 mmol/L (136-145)
--- NOTE | 2025-04-05 09:45 | DVHPN2 ---
Reviewed: Care Plan, H&P, Labs, Medications, Previous Orders, Radiology Changes from previous H/P or p: No Changes Eyes: No Pain, No Vision change, No Conjunctivae inflammation, No Eyelid inflammation, No Other, No Redness ENT: No Ear pain, No Ear discharge, No Nose pain, No Nose discharge, No Nose congestion, No Mouth pain, No Mouth swelling, No Throat pain, No Throat swelling, No Other Cardiovascular: No Chest Pain, No Palpitations, No Orthopnea, No Paroxysmal Noc. Dyspnea, No Edema, No Lt Headedness, No Other Respiratory: No Cough, No Dry, No Shortness of breath, No SOB with excertion, No Wheezing, No Hemoptysis, No Pleuritic Pain, No Sputum, No Other Gastrointestinal: Nausea, Abdominal Pain Genitourinary: No Dysuria, No Frequency, No Incontinence, No Hematuria, No Retention, No Other Musculoskeletal: No other, No neck pain, No shoulder pain, No arm pain, No back pain, No hand pain, No leg pain, No foot pain Skin: No Rash, No Lesions, No Jaundice, No Bruising, No Other Objective Vitals Vital Signs Date Time Temp Pulse Resp B/P (MAP) Pulse Ox O2 Delivery O2 Flow Rate FiO2 04/05/25 09:00 97.8 72 18 113/54 (73) 94 97.8 04/04/25 20:00 Room Air* 0 21 Intake/Output Intake and Output 04/05/25 07:00 Intake Total 1150 ml Balance 1150 ml Intake Oral 1000 ml IV Total 150 ml # Voids 4 Medications Current Medications Medications Dose Ordered Sig/Ilan Route Start Time Stop Time Status Last Admin Dose Admin Ceftriaxone Sodium 50 ml @ 100 mls/hr DAILY@09 IV 04/05/25 09:00 04/05/25 08:42 100 MLS/HR Multivit/Ca Carb/ B Cmplx/FA/Prenat 1 tab DAILY PO 04/04/25 10:00 04/05/25 08:18 1 TAB Sodium Chloride 10 ml Q8HR IV 04/04/25 06:00 04/05/25 05:40 10 ML Acetaminophen/ Hydrocodone Bitart 1 tab Q4HP PRN PO 04/04/25 01:45 04/05/25 08:19 1 TAB Ondansetron HCl 4 mg Q4HP PRN IV 04/04/25 01:45 Docusate Sodium 100 mg BIDPRN PRN PO 04/04/25 01:45 Acetaminophen 650 mg Q6HP PRN PO 04/04/25 01:45 Nitroglycerin 0.4 mg Q5MINP PRN SL 04/04/25 01:45 Morphine Sulfate 2 mg Q30M PRN IV 04/04/25 01:45 Midodrine 10 mg TID@0600,1200,1800 PO 04/04/25 06:00 04/05/25 05:39 10 MG Laboratory Results Laboratory Tests 04/05/25 04:57 Chemistry Test 04/04/25 09:46 04/04/25 13:02 04/05/25 04:57 Calcium Level 8.9 mg/dL (8.7-10.4) 8.6 mg/dL (8.7-10.4) L 9.4 mg/dL (8.7-10.4) Magnesium Level 2.6 mg/dL (1.6-2.6) Albumin 4.0 g/dL (3.2-4.8) Total Protein 6.5 g/dL (5.7-8.2) LFT Test 04/05/25 04:57 Alanine Aminotransferase (ALT) < 9 U/L (7-40) Alkaline Phosphatase 59 U/L (46-116) Aspartate Amino Transferase (AST) 13 U/L (13-40) Total Bilirubin 0.4 mg/dL (0.2-1.0) Urinalysis Test 04/04/25 07:05 Urine Color Light-yellow (Yellow) Urine Clarity Clear (Clear) Urine pH 5.0 (5.0-9.0) Urine Specific [place] 1.012 (1.001-1.035) Urine Protein Negative (Negative) Urine Ketones Trace (Negative) Urine Blood Negative /uL (Negative) Urine Nitrite Negative (Negative) Urine Bilirubin Negative (Negative) Urine Urobilinogen Normal mg/dL (Negative) Urine Leukocyte Esterase 1+ /uL (Negative) Urine RBC 1 /hpf (0 - 4) Urine Microscopic WBC 12 /HPF (0-5) H Urine Squamous Epithelial Cells Few /hpf (<5) Urine Bacteria Few /hpf (None Seen) H Urine Osmolality 315 mOsm/kg Urine Sodium 29 mmol/L (40-220) L Urine Glucose Normal mg/dL (Normal) Microbiology Microbiology Date/Time Source Procedure Growth Status 04/03/25 22:05 Blood Blood Culture - Preliminary NO GROWTH AFTER 24 HOURS OF INCUBATION. Resulted Labs and/or images reviewed: Labs reviewed by me, Image(s) reviewed by me Assessment/Plan Assessment/Plan Acute renal failure versus CKD4 Consult for Nephrology Severe hyponatremia, sodium 117, improved to 128, Nephrology following Acute metabolic encephalopathy Sepsis possibly secondary to UTI Acute urinary tract infection: Blood cultures negative, urine cultures pending, continue Rocephin Dayan test negative Flu test negative Hypertension Acute COPD exacerbation Time spent 50 minutes Advanced care planning time 20 minutes Patient is hospice revoked; per patient she was put on hospice for no reason; she says hospice now revoked Plan discussed with: Patient Date of Service: Apr 05, 2025 Billing Provider: GRZEGORZ BOBO MD Common Visit Codes: [id number] CARE 30-74 MIN GRZEGORZ BOBO MD Apr 05, 2025 09:45
[2025-04-05] MEDS ORDERED: hydroCHLOROthiazide 25 MG TAB PO SCH (10:00)
[2025-04-05] MEDS ORDERED: FUROSEMIDE 20 MG TAB PO SCH (10:00)
[2025-04-05] MEDS ORDERED: LOSARTAN POTASSIUM 50 MG TAB PO SCH (10:00)
[2025-04-05] MEDS: POTASSIUM EFFERVESENT TAB 25 MEQ PO ONE (13:08)
[2025-04-05] MEDS: METOPROLOL TARTRATE 50 MG TAB PO SCH (13:11)
[2025-04-05] MEDS: GABAPENTIN 400 MG CAP PO SCH (13:13)
--- NOTE | 2025-04-05 14:48 | DVHPN2 ---
Progress Note Date Seen: Apr 05, 2025 Medical Necessity Reason Pt with a Central, PICC or Fol: No Subjective Patient reports: No new complaints, Feels better, Other (Reports nausea is better and some sweetness in mouth is better) Review of Systems: HEENT:Normal, CVS:Normal, RESPIRATORY:Normal, GI:Normal, :Normal, MSK:Normal, NEURO:Normal Objective vital signs Vital Sign Date Time Temp Pulse Resp B/P (MAP) Pulse Ox O2 Delivery O2 Flow Rate FiO2 04/05/25 13:11 74 110/63 04/05/25 09:00 97.8 18 94 97.8 04/05/25 08:00 Room Air* 0 21 Total Intake and Output 04/04/25 04/04/25 04/05/25 15:00 23:00 07:00 Intake Total 150 ml 200 ml 800 ml Balance 150 ml 200 ml 800 ml medications Current Medications Medications Dose Ordered Sig/Ilan Route Start Time Stop Time Status Last Admin Dose Admin Ceftriaxone Sodium 50 ml @ 100 mls/hr DAILY@09 IV 04/05/25 09:00 04/05/25 08:42 100 MLS/HR Multivit/Ca Carb/ B Cmplx/FA/Prenat 1 tab DAILY PO 04/04/25 10:00 04/05/25 08:18 1 TAB Sodium Chloride 10 ml Q8HR IV 04/04/25 06:00 04/05/25 14:22 10 ML Acetaminophen/ Hydrocodone Bitart 1 tab Q4HP PRN PO 04/04/25 01:45 04/05/25 13:18 1 TAB Ondansetron HCl 4 mg Q4HP PRN IV 04/04/25 01:45 Docusate Sodium 100 mg BIDPRN PRN PO 04/04/25 01:45 Acetaminophen 650 mg Q6HP PRN PO 04/04/25 01:45 Nitroglycerin 0.4 mg Q5MINP PRN SL 04/04/25 01:45 Morphine Sulfate 2 mg Q30M PRN IV 04/04/25 01:45 Midodrine 10 mg TID@0600,1200,1800 PO 04/04/25 06:00 04/05/25 05:39 10 MG Gabapentin 400 mg BID PO 04/05/25 10:00 Metoprolol Tartrate 50 mg BID PO 04/05/25 10:00 04/05/25 13:11 50 MG Examination: GENERAL:Normal, HEENT:Normal, NECK:Normal, LUNGS:Normal, CVS:Normal, ABDOMEN:Normal, MSK:Normal, SKIN:Normal, NEURO:Normal, :Normal laboratory and microbiology Laboratory Tests 04/05/25 04:57 Test 04/05/25 04:57 Range/Units Serum Glucose 83 74-106 mg/dL Microbiology Date/Time Source Procedure Growth Status 04/03/25 22:05 Blood Blood Culture - Preliminary NO GROWTH AFTER 24 HOURS OF INCUBATION. Resulted Problem List/Assessment/Plan Problem List/Assessment/Plan Hypovolemic hyponatremia likely secondary to hydrochlorothiazide, Lasix IGLESIA on CKD hemodynamic etiology prerenal etiology Hypovolemia Hypertension COPD UTI Osteoporosis Recommendations DC hydrochlorothiazide and Lasix as these caused hyponatremia---after discharge hold hydrochlorothiazide and Lasix only resume losartan if blood pressure systolic greater than 140/90 DC losartan for now given acute kidney injury and blood pressure on low side Sodium 128 appropriately rising NS IV as ordered Patient appears clinically dry Plan discussed with: Patient TYLOR TOLLIVER MD Apr 05, 2025 14:48
[2025-04-05] MEDS: SODIUM CHLORIDE 0.9% 1,000 ML IV SCH (15:50)
[2025-04-06] VITALS (8 sets, daily range): BP systolic 105–125; BP diastolic 33–61; PULSE 63–89; RESP 14–17; TEMP 97–99; O2SAT 95–100
[2025-04-06 09:37] LABS: Potassium 3.9 mmol/L (3.5-5.1)
[2025-04-06 09:38] LABS: Anion Gap 6 (5-15); Carbon Dioxide 28 mmol/L (20-31)
[2025-04-06 09:41] LABS: Calcium 8.6 mg/dL (8.7-10.4); Chloride 98 mmol/L (98-107); Sodium 132 mmol/L (136-145)
[2025-04-06 09:43] LABS: BUN/Creatinine Ratio 33.8 (10.0-20.0); Glucose 79 mg/dL (74-106)
[2025-04-06 09:44] LABS: Blood Urea Nitrogen 50 mg/dL (9-23)
--- NOTE | 2025-04-06 09:48 | DVHPN2 ---
Reviewed: Care Plan, H&P, Labs, Medications, Previous Orders, Radiology Changes from previous H/P or p: No Changes Eyes: No Pain, No Vision change, No Conjunctivae inflammation, No Eyelid inflammation, No Other, No Redness ENT: No Ear pain, No Ear discharge, No Nose pain, No Nose discharge, No Nose congestion, No Mouth pain, No Mouth swelling, No Throat pain, No Throat swelling, No Other Cardiovascular: No Chest Pain, No Palpitations, No Orthopnea, No Paroxysmal Noc. Dyspnea, No Edema, No Lt Headedness, No Other Respiratory: No Cough, No Dry, No Shortness of breath, No SOB with excertion, No Wheezing, No Hemoptysis, No Pleuritic Pain, No Sputum, No Other Gastrointestinal: Nausea, Abdominal Pain Genitourinary: No Dysuria, No Frequency, No Incontinence, No Hematuria, No Retention, No Other Musculoskeletal: No other, No neck pain, No shoulder pain, No arm pain, No back pain, No hand pain, No leg pain, No foot pain Skin: No Rash, No Lesions, No Jaundice, No Bruising, No Other Objective Vitals Vital Signs Date Time Temp Pulse Resp B/P (MAP) Pulse Ox O2 Delivery O2 Flow Rate FiO2 04/06/25 09:19 68 115/40 04/06/25 05:00 97.0 14 100 97.0 04/05/25 20:00 Nasal Cannula* 1 24 Intake/Output Intake and Output 04/06/25 07:00 Intake Total 1080 ml Output Total 100 ml Balance 980 ml Intake Oral 900 ml IV Total 180 ml Output Urine Total 100 ml # Voids 7 # Bowel Movements 1 Medications Current Medications Medications Dose Ordered Sig/Ilan Route Start Time Stop Time Status Last Admin Dose Admin Ceftriaxone Sodium 50 ml @ 100 mls/hr DAILY@09 IV 04/05/25 09:00 04/06/25 08:53 100 MLS/HR Multivit/Ca Carb/ B Cmplx/FA/Prenat 1 tab DAILY PO 04/04/25 10:00 04/06/25 08:53 1 TAB Sodium Chloride 10 ml Q8HR IV 04/04/25 06:00 04/06/25 06:04 10 ML Acetaminophen/ Hydrocodone Bitart 1 tab Q4HP PRN PO 04/04/25 01:45 04/06/25 06:09 1 TAB Ondansetron HCl 4 mg Q4HP PRN IV 04/04/25 01:45 Docusate Sodium 100 mg BIDPRN PRN PO 04/04/25 01:45 Acetaminophen 650 mg Q6HP PRN PO 04/04/25 01:45 Nitroglycerin 0.4 mg Q5MINP PRN SL 04/04/25 01:45 Morphine Sulfate 2 mg Q30M PRN IV 04/04/25 01:45 Midodrine 10 mg TID@0600,1200,1800 PO 04/04/25 06:00 04/06/25 06:04 10 MG Gabapentin 400 mg BID PO 04/05/25 10:00 Metoprolol Tartrate 50 mg BID PO 04/05/25 10:00 04/05/25 13:11 50 MG Sodium Chloride 1,000 ml @ 60 mls/hr [id number] IV 04/05/25 15:00 04/06/25 08:58 60 MLS/HR Laboratory Results Laboratory Tests 04/05/25 04:57 04/06/25 08:19 Chemistry Test 04/06/25 08:19 Calcium Level 8.6 mg/dL (8.7-10.4) L Urinalysis Test 04/04/25 07:05 Urine Color Light-yellow (Yellow) Urine Clarity Clear (Clear) Urine pH 5.0 (5.0-9.0) Urine Specific [place] 1.012 (1.001-1.035) Urine Protein Negative (Negative) Urine Ketones Trace (Negative) Urine Blood Negative /uL (Negative) Urine Nitrite Negative (Negative) Urine Bilirubin Negative (Negative) Urine Urobilinogen Normal mg/dL (Negative) Urine Leukocyte Esterase 1+ /uL (Negative) Urine RBC 1 /hpf (0 - 4) Urine Microscopic WBC 12 /HPF (0-5) H Urine Squamous Epithelial Cells Few /hpf (<5) Urine Bacteria Few /hpf (None Seen) H Urine Osmolality 315 mOsm/kg Urine Sodium 29 mmol/L (40-220) L Urine Glucose Normal mg/dL (Normal) Microbiology Microbiology Date/Time Source Procedure Growth Status 04/03/25 22:05 Blood Blood Culture - Preliminary NO GROWTH AFTER 48 HOURS OF INCUBATION. Resulted Labs and/or images reviewed: Labs reviewed by me, Image(s) reviewed by me Assessment/Plan Assessment/Plan Acute renal failure versus CKD4 Consult for Nephrology appreciated Severe hyponatremia, sodium 117, improved to 128, Nephrology following Acute metabolic encephalopathy Sepsis possibly secondary to UTI Acute urinary tract infection: Blood cultures negative, urine cultures pending, continue Rocephin Dayan test negative Flu test negative Hypertension Acute COPD exacerbation Time spent 50 minutes Advanced care planning time 20 minutes Patient is hospice revoked; per patient she was put on hospice for no reason; she says hospice now revoked Plan discussed with: Patient My Orders Orders - GRZEGORZ BOBO MD Procedure Category Date Status Time Gabapentin Capsule PHA 04/05/25 In Process (Neurontin Capsule) 10:00 Metoprolol Tartrate PHA 04/05/25 In Process Tablet (Lopressor Ta 10:00 Pt Request For Service PT 04/05/25 Logged 14:17 Date of Service: Apr 06, 2025 Billing Provider: GRZEGORZ BOBO MD Common Visit Codes: [id number] INP/OBS CARE(HIGH) GRZEGORZ BOBO MD Apr 06, 2025 09:48
--- NOTE | 2025-04-06 13:52 | DVHPN2 ---
Progress Note Date Seen: Apr 06, 2025 Medical Necessity Reason Pt with a Central, PICC or Fol: No Subjective Patient reports: No new complaints, Feels better Review of Systems: Deferred Objective vital signs Vital Sign Date Time Temp Pulse Resp B/P (MAP) Pulse Ox O2 Delivery O2 Flow Rate FiO2 04/06/25 13:00 97.9 64 16 120/50 (73) 99 97.9 04/05/25 20:00 Nasal Cannula* 1 24 Total Intake and Output 04/05/25 04/05/25 04/06/25 15:00 23:00 07:00 Intake Total 880 ml 200 ml Output Total 100 ml Balance 780 ml 200 ml medications Current Medications Medications Dose Ordered Sig/Ilan Route Start Time Stop Time Status Last Admin Dose Admin Ceftriaxone Sodium 50 ml @ 100 mls/hr DAILY@09 IV 04/05/25 09:00 04/06/25 08:53 100 MLS/HR Multivit/Ca Carb/ B Cmplx/FA/Prenat 1 tab DAILY PO 04/04/25 10:00 04/06/25 08:53 1 TAB Sodium Chloride 10 ml Q8HR IV 04/04/25 06:00 04/06/25 06:04 10 ML Acetaminophen/ Hydrocodone Bitart 1 tab Q4HP PRN PO 04/04/25 01:45 04/06/25 12:03 1 TAB Ondansetron HCl 4 mg Q4HP PRN IV 04/04/25 01:45 Docusate Sodium 100 mg BIDPRN PRN PO 04/04/25 01:45 Acetaminophen 650 mg Q6HP PRN PO 04/04/25 01:45 Nitroglycerin 0.4 mg Q5MINP PRN SL 04/04/25 01:45 Morphine Sulfate 2 mg Q30M PRN IV 04/04/25 01:45 Midodrine 10 mg TID@0600,1200,1800 PO 04/04/25 06:00 04/06/25 11:50 10 MG Gabapentin 400 mg BID PO 04/05/25 10:00 Metoprolol Tartrate 50 mg BID PO 04/05/25 10:00 04/05/25 13:11 50 MG Sodium Chloride 1,000 ml @ 60 mls/hr [id number] IV 04/05/25 15:00 04/06/25 08:58 60 MLS/HR laboratory and microbiology Laboratory Tests 04/06/25 08:19 04/05/25 04:57 Test 04/06/25 08:19 Range/Units Serum Glucose 79 74-106 mg/dL Microbiology Date/Time Source Procedure Growth Status 04/05/25 18:10 Urine - Midstream Clean Catch Urine Culture - Preliminary Resulted 04/03/25 22:05 Blood Blood Culture - Preliminary NO GROWTH AFTER 48 HOURS OF INCUBATION. Resulted Problem List/Assessment/Plan Problem List/Assessment/Plan Hypovolemic hyponatremia likely secondary to hydrochlorothiazide, Lasix IGLESIA on CKD hemodynamic etiology prerenal etiology Hypovolemia Hypertension COPD UTI Osteoporosis Recommendations DC hydrochlorothiazide and Lasix as these caused hyponatremia---after discharge hold hydrochlorothiazide and Lasix only resume losartan if blood pressure systolic greater than 140/90 DC losartan for now given acute kidney injury and blood pressure on low side Sodium 132 appropriately rising NS IV as ordered Plan discussed with: Patient My Orders My Orders Orders - TYLOR TOLLIVER MD Procedure Category Date Status Time Sodium Chloride 0.9% PHA 04/05/25 In Process 15:00 Basic Metabolic Panel LAB 04/07/25 Verified 04:00 TYLOR TOLLIVER MD Apr 06, 2025 13:52
[2025-04-07 01:02] VITALS: BP 130/60; PULSE 61; RESP 17; TEMP 97.8; O2SAT 100
[2025-04-07 05:00] VITALS: BP 107/59; PULSE 65; RESP 16; TEMP 98.2; O2SAT 96
[2025-04-07 08:00] VITALS: PULSE 57; PULSE 98; RESP 14; O2SAT 98
--- NOTE | 2025-04-07 08:57 | DVHPN2 ---
Progress Note Date Seen: Apr 07, 2025 Resident Creating Document: MARLYN VALENZUELA RESDIENT Medical Necessity Reason Pt with a Central, PICC or Fol: No Subjective Review of Systems Patient seen and examined at the bedside. Patient is feeling better since admission, does not have any active complaint at the moment. Patient reports: No new complaints Other Systems: Patient seen and examined by myself today on rounds with the medicine resident, I agree with his assessment and plan Objective vital signs Vital Sign Date Time Temp Pulse Resp B/P (MAP) Pulse Ox O2 Delivery O2 Flow Rate FiO2 04/07/25 08:37 98 121/79 04/07/25 05:00 98.2 16 96 98.2 04/06/25 20:00 Nasal Cannula* 1 24 Total Intake and Output 04/06/25 04/06/25 04/07/25 15:00 23:00 07:00 Intake Total 1050 ml 120 ml 1780 ml Balance 1050 ml 120 ml 1780 ml medications Current Medications Medications Dose Ordered Sig/Ilan Route Start Time Stop Time Status Last Admin Dose Admin Ceftriaxone Sodium 50 ml @ 100 mls/hr DAILY@09 IV 04/05/25 09:00 04/07/25 08:36 100 MLS/HR Multivit/Ca Carb/ B Cmplx/FA/Prenat 1 tab DAILY PO 04/04/25 10:00 04/07/25 08:37 1 TAB Sodium Chloride 10 ml Q8HR IV 04/04/25 06:00 04/07/25 05:54 10 ML Acetaminophen/ Hydrocodone Bitart 1 tab Q4HP PRN PO 04/04/25 01:45 04/07/25 08:37 1 TAB Ondansetron HCl 4 mg Q4HP PRN IV 04/04/25 01:45 Docusate Sodium 100 mg BIDPRN PRN PO 04/04/25 01:45 Acetaminophen 650 mg Q6HP PRN PO 04/04/25 01:45 Nitroglycerin 0.4 mg Q5MINP PRN SL 04/04/25 01:45 Morphine Sulfate 2 mg Q30M PRN IV 04/04/25 01:45 Midodrine 10 mg TID@0600,1200,1800 PO 04/04/25 06:00 04/07/25 05:54 10 MG Gabapentin 400 mg BID PO 04/05/25 10:00 Metoprolol Tartrate 50 mg BID PO 04/05/25 10:00 04/07/25 08:37 50 MG Sodium Chloride 1,000 ml @ 60 mls/hr [id number] IV 04/05/25 15:00 04/07/25 02:38 60 MLS/HR Examination General Appearance: Alert, Oriented X3, Cooperative, No acute distress HEENT: Atraumatic, PERRLA, EOMI, Mucous membrane moist/pink Respiratory: bilateral mild rhonchi Cardiovascular: Regular rate, Normal S1, Normal S2, No murmurs, no chest wall tenderness Abdominal: Normal bowel sounds, Soft, No tenderness, No hepatospenomegaly, No masses Extremities: No clubbing, No cyanosis, No edema, Normal pulses, No tenderness/swelling Skin: No rashes, No breakdown, No significant lesion Neuro: Normal gait, Normal speech, Strength at 5/5 X4 ext, Normal tone, Sensation intact, Cranial nerves 3-12 NL, Reflexes 2+ Psych/Mental Status: Mental status NL, Mood NL Examination: LUNGS:Normal, CVS:Normal, MSK:Normal laboratory and microbiology Laboratory Tests 04/06/25 08:19 04/05/25 04:57 Test 04/06/25 08:19 Range/Units Serum Glucose 79 74-106 mg/dL Microbiology Date/Time Source Procedure Growth Status 04/05/25 18:10 Urine - Midstream Clean Catch Urine Culture - Preliminary Resulted 04/03/25 22:05 Blood Blood Culture - Preliminary NO GROWTH AFTER 72 HOURS OF INCUBATION. Resulted Labs and/or images reviewed: Labs reviewed by me, Image(s) reviewed by me Problem List/Assessment/Plan Problem List/Assessment/Plan This is an 69 year old lady with past medical history of COPD, hypertension known osteoporosis came to the hospital due to generalized weakness, abdominal pain, nausea and decreased appetite. Nephrology consulted due to IGLESIA and hyponatremia. Assessment: Hypovolemic hyponatremia likely secondary to hydrochlorothiazide, Lasix IGLESIA on CKD hemodynamic etiology prerenal etiology Hypovolemia Hypertension COPD UTI Osteoporosis Plan/Recommendation: (Dr. Arredondo) * Kidney function is improving * No urine output charted * DC hydrochlorothiazide and Lasix as these caused hyponatremia---after discharge hold hydrochlorothiazide and Lasix only resume losartan if blood pressure systolic greater than 130/85 * DC losartan for now given acute kidney injury and blood pressure on low side * NS IV as ordered, DC midodrine * Follow up with the patient Thank you for giving us the opportunity to take care of your patient. Please call back if you have any questions/concerns. Plan discussed with: Patient, Other (RN) MARLYN VALENZUELA Apr 07, 2025 08:57 SIDNEY ARREDONDO MD Apr 07, 2025 13:43
[2025-04-07 09:00] VITALS: BP 121/79; PULSE 98; RESP 18; TEMP 97.4; O2SAT 99
[2025-04-07 09:23] LABS: Chloride 104 mmol/L (98-107); Sodium 137 mmol/L (136-145)
[2025-04-07 09:24] LABS: Anion Gap 6 (5-15); Carbon Dioxide 27 mmol/L (20-31)
[2025-04-07 09:29] LABS: BUN/Creatinine Ratio 22.2 (10.0-20.0); Glucose 102 mg/dL (74-106)
[2025-04-07 09:32] LABS: Blood Urea Nitrogen 24 mg/dL (9-23); Calcium 8.6 mg/dL (8.7-10.4); Potassium 3.5 mmol/L (3.5-5.1)
[2025-04-07] MEDS: POTASSIUM EFFERVESENT TAB 25 MEQ GT ONE (12:15)
[2025-04-07] MEDS: SODIUM CHLORIDE 0.9% 1,000 ML IV SCH (12:15)
--- NOTE | 2025-04-07 12:23 | DVHDS2 ---
Discharge Summary Date of Admission Apr 04, 2025 at 01:36 Date of Discharge: Apr 07, 2025 Admitting Diagnosis Altered mental status Wounds: None Labs/Diagnostic Data: Laboratory Results Test 04/07/25 08:52 04/05/25 04:57 04/04/25 18:50 04/04/25 09:46 Sodium Level 137 mmol/L (136-145) Potassium Level 3.5 mmol/L (3.5-5.1) Chloride Level 104 mmol/L (98-107) Carbon Dioxide Level 27 mmol/L (20-31) Anion Gap 6 (5-15) Blood Urea Nitrogen 24 mg/dL (9-23) Creatinine 1.08 mg/dL (0.550-1.02) Glomerular Filtration Rate Calc 56 mL/min (>90) BUN/Creatinine Ratio 22.2 (10.0-20.0) Serum Glucose 102 mg/dL (74-106) Calcium Level 8.6 mg/dL (8.7-10.4) White Blood Count 8.7 10^3/uL (4.4-10.8) Red Blood Count 4.69 10^6/uL (4.0-5.20) Hemoglobin 13.4 g/dL (12.2-16.2) Hematocrit 38.8 % (36.0-46.0) Mean Corpuscular Volume 82.6 fL (80.0-100.0) Mean Corpuscular Hemoglobin 28.7 pg (28.0-32.0) Mean Corpuscular Hemoglobin Concent 34.7 g/dL (32.0-36.0) Red Cell Distribution Width 14.0 % (11.8-14.3) Platelet Count 264 10^3/uL (140-450) Mean Platelet Volume 9.0 fL (6.9-10.8) Neutrophils (%) (Auto) 57.8 % (37.0-80.0) Lymphocytes (%) (Auto) 25.1 % (10.0-50.0) Monocytes (%) (Auto) 11.3 % (0.0-12.0) Eosinophils (%) (Auto) 4.0 % (0.0-7.0) Basophils (%) (Auto) 1.8 % (0.0-2.0) Neutrophils # (Auto) 5.0 10 ^3/uL (1.6-8.6) Lymphocytes # (Auto) 2.2 10 ^3/uL (0.4-5.4) Monocytes # (Auto) 1.0 10 ^3/uL (0-1.3) Eosinophils # (Auto) 0.3 10 ^3/uL (0-0.8) Basophils # (Auto) 0.2 10 ^3/uL (0-0.2) Nucleated Red Blood Cells 0.1 % Total Bilirubin 0.4 mg/dL (0.2-1.0) Aspartate Amino Transferase (AST) 13 U/L (13-40) Alanine Aminotransferase (ALT) < 9 U/L (7-40) Alkaline Phosphatase 59 U/L (46-116) Total Protein 6.5 g/dL (5.7-8.2) Albumin 4.0 g/dL (3.2-4.8) Serum Osmolality 292 mOsm/kg (278-298) Magnesium Level 2.6 mg/dL (1.6-2.6) Test 04/04/25 07:05 04/04/25 03:20 04/03/25 22:05 04/03/25 10:35 Urine Color Light-yellow (Yellow) Urine Clarity Clear (Clear) Urine pH 5.0 (5.0-9.0) Urine Specific [place] 1.012 (1.001-1.035) Urine Protein Negative (Negative) Urine Ketones Trace (Negative) Urine Blood Negative /uL (Negative) Urine Nitrite Negative (Negative) Urine Bilirubin Negative (Negative) Urine Urobilinogen Normal mg/dL (Negative) Urine Leukocyte Esterase 1+ /uL (Negative) Urine RBC 1 /hpf (0 - 4) Urine Microscopic WBC 12 /HPF (0-5) Urine Squamous Epithelial Cells Few /hpf (<5) Urine Bacteria Few /hpf (None Seen) Urine Osmolality 315 mOsm/kg Urine Sodium 29 mmol/L (40-220) Urine Glucose Normal mg/dL (Normal) Urine Opiates Screen Pos (NEGATIVE) Urine Fentanyl Screen Neg (NEGATIVE) Urine Barbiturates Screen Neg (NEGATIVE) Urine Phencyclidine Screen Neg (NEGATIVE) Urine Amphetamines Screen Neg (NEGATIVE) Urine Benzodiazepines Screen Neg (NEGATIVE) Urine Cocaine Screen Neg (NEGATIVE) Urine Cannabinoids Screen Neg (NEGATIVE) Free Thyroxine (T4) Calculated 1.79 ng/dL (0.89-1.76) Free Triiodothyronine (T3) pg/mL 2.94 pg/mL (2.3-4.2) Lactic Acid Level 1.0 mmol/L (0.4-2.0) Troponin I High Sensitivity 17 ng/L (</=34) B-Type Natriuretic Peptide 17.20 pg/mL (0-100) Lipase 90 U/L (12-53) Thyroid Stimulating Hormone (TSH) 2.30 uIU/mL (0.55-4.78) Plasma/Serum Blood Alcohol < 3.0 mg/dL (<10) Influenza Type A Antigen Negative (Negative) Influenza Type B Antigen Negative (Negative) SARS-CoV-2 Antigen (Rapid) Negative (NEGATIVE) Other Laboratory Tests 04/07/25 08:52 04/05/25 04:57 Brief Hx & Hospital Course: 69-year-old female with a history of kidney failure hypotension COPD came in for generalized weakness and altered mental status found to have very low sodium [address] Escoto Lasix and hydrochlorothiazide which were home medications were held and losartan was continued he was given 3 percent sodium chloride and then regular saline and sodium has improved to 135 at the time of discharge and patient has significantly improved in the mental status. Dayan test negative flu test negative patient has had moderate urinary infection blood cultures negative urine cultures mixed treated with Rocephin [facility] She was advised to stop taking Lasix and hydralazine and follow up with the Dr. Escoto in 3 days. Consults/Reason for consult Nephrology Dr. Escoto Operations or Procedures None Condition at Discharge: Fair Final Diagnosis/Problems List Acute renal failure versus CKD4 Consult for Nephrology appreciated Severe hyponatremia, sodium 117, improved to 128, Nephrology following Acute metabolic encephalopathy Sepsis possibly secondary to UTI Acute urinary tract infection: Blood cultures negative, urine cultures pending, continue Rocephin Dayan test negative Flu test negative Hypertension Acute COPD exacerbation Discharge Disposition: Home with Health Services Discharge Instruct/Medications Diet: Cardiac 2g Na,low cholest Activity: Light activity Follow Up/Referral: Stop Lasix and hydrochlorothiazide Continue losartan and other medications Follow up with the primary Dr in one week Follow up with the Nephrology Dr. Escoto in three days Medications: None Scheduled Alendronate Sodium (Alendronate Sodium), 1 TAB PO QWEEKLY, (Reported) Amoxicillin & Pot Clavulanate (Augmentin Tablet), 875 MG PO BID Celecoxib (Celecoxib), 1 CAP PO DAILY, (Reported) Urcafhpdefk-Myortgvytdry-Dwuqx (Trelegy Ellipta 200-62.5-25 Mcg/INH), 1 PUFF PO DAILY, (Reported) Furosemide (Furosemide), 1 TAB PO DAILY, (Reported) Gabapentin (Gabapentin), 1 CAP PO Q12HR, (Reported) Hydrochlorothiazide (Hydrochlorothiazide), 1 TAB PO QAM Losartan Potassium (Losartan Potassium), 1 TAB PO DAILY, (Reported) Metoprolol Tartrate (Lopressor Tablet), 50 MG PO BID Pantoprazole Sodium Sesquihydr (Pantoprazole Sodium), 1 TAB PO DAILY, (Reported) Pregabalin (Lyrica), 1 CAP PO TID, (Reported) Miscellaneous Medications Albuterol Sulfate (Ventolin Mdi), 90 MCG IN, (Reported) Ondansetron Odt 4MG Tab (Zofran Po), 4 MG PO, (Reported) 39 (Time taken for discharge summary 39 minute) Discharge Statement: "Patient was advised to return to the ER or call 911 if any headaches, dizziness, shortness of breath, chest pain, abdominal pain, bleeding, fevers, or worsening of medical condition. Patient was counseled about treatment plan, medications, possible side effects, patientverbalized understanding. All questions were answered to the best of my ability. This discharge took greater then 30 minutes in planning, reviewing documentation, counseling the patient, and discussing with other team members." ASSESSMENT ASSESSMENT Hospital Course Uneventful Assessment Acute renal failure versus CKD4 Consult for Nephrology appreciated Severe hyponatremia, sodium 117, improved to 128, Nephrology following Acute metabolic encephalopathy Sepsis possibly secondary to UTI Acute urinary tract infection: Blood cultures negative, urine cultures pending, continue Rocephin Dayan test negative Flu test negative Hypertension Acute COPD exacerbation Date of Service: Apr 07, 2025 Billing Provider: GRZEGORZ BOBO MD Common Visit Codes: 65387-MMI/OBS DISCH DAY >30min GRZEGORZ BOBO MD Apr 07, 2025 12:23
[2025-04-07] MEDS ORDERED: LEVO500T91 PO (12:24)
[2025-04-07 13:00] VITALS: BP 122/41; PULSE 51; RESP 18; TEMP 96.8; O2SAT 98
== END 2025-04-07 16:00 | disposition home health service (06) | DRG 871 ==
LOC: ER 21:16 → OVERFLOW 04-04 01:36 → TELE-EAST 04-04 14:52
PROVIDERS: ADMIT Family Medicine; ATTEND Family Medicine
DX: A41.9 Sepsis, unspecified organism (principal); G93.41 Metabolic encephalopathy; E87.1 Hypo-osmolality and hyponatremia; J44.1 Chronic obstructive pulmonary disease with (acute) exacerbation; N17.9 Acute kidney failure, unspecified; N18.4 Chronic kidney disease, stage 4 (severe); N39.0 Urinary tract infection, site not specified; M81.0 Age-related osteoporosis without current pathological fracture; E87.6 Hypokalemia; E86.1 Hypovolemia; E87.8 Other disorders of electrolyte and fluid balance, not elsewhere classified; I12.9 Hypertensive chronic kidney disease with stage 1 through stage 4 chronic kidney disease, or unspecified chronic kidney disease; T50.2X5A Adverse effect of carbonic-anhydrase inhibitors, benzothiadiazides and other diuretics, initial encounter; G62.9 Polyneuropathy, unspecified; Z20.822 Contact with and (suspected) exposure to COVID-19; Y92.89 Other specified places as the place of occurrence of the external cause; Z79.899 Other long term (current) drug therapy; Z90.710 Acquired absence of both cervix and uterus; Z51.5 Encounter for palliative care
CPT/HCPCS: 36415; 71045; 71250; 74176; 80048; 80053; 80307; 80320; 81001; 83605; 83690; 83735; 83880; 83930; 83935; 84300; 84439; 84443; 84481; 84484; 84550; 85025; 87040; 87086; 87426; 87804; G0378; J3480